=== PATIENT | female | born 1990 | race Caucasian/White ===

== ENCOUNTER 2017-03-31 08:09 | Inpatient (IN) | payer OTHER, SELFPAY ==
[~2017-03-31] VITALS: Ht 154.9 cm; Wt 84.5 kg
[~2017-03-31 08:09] MED LIST: ATOR1TAB19 PO; CELE10TA PO; CIPR500T89 PO; CLIN300C2 PO; CODE30TA3 PO; DEPA1TAB3 PO; GABA800T PO; INSUH10VL SC; INSULANT SC; JANU100T PO; KEFL500C7 OR; KEFL500C7 PO; LISI-542 PO; LISI25TA OR; METF500T PO; MULTCAP PO; No Historical Meds; PERCOCET PO; PROA1AER INH; PROM125TA PO; RANI15TA PO; REGL10TA6 OR; SILV1CRE19 TOP; TYLE325T5 OR; VITA50003 PO; VITACRY3 PO; ZINC100T4 PO; ZOFR4TAB3 PO; lantus SQ; novolog SQ
[2017-03-31] MEDS ORDERED: SENN8.6T10 PO (08:19)
[2017-03-31] MEDS ORDERED: AMLO5TAB2 PO (08:19)
[2017-03-31] MEDS ORDERED: LISI-538 (08:19)
[2017-03-31] MEDS ORDERED: PROMETHAZINE INJ 25 MG/ML VIAL (J2550) IV ONE (08:45)
[2017-03-31] MEDS ORDERED: NS 1,000 ML IV ONE ×2 (08:45→12:45)
[2017-03-31] MEDS: LEVEMIR (INSULIN DETEMIR) 1 UNITS/0.01ML SC SCH (09:00)
[2017-03-31] MEDS: PANTOPRAZOLE 40MG INJ (PROTONIX) (C9113) IV SCH (09:00)
[2017-03-31] MEDS: LISINOPRIL 20 MG TAB PO SCH (09:00)
[2017-03-31] MEDS: amLODIPine 5 MG TAB PO SCH (09:00)
[2017-03-31 09:17] LABS: VENOUS BASE EXCESS -1.2 (-2.0-2.0); VENOUS PARTIAL PRESSURE CO2 44.5 mmHg (38.0-50.0); VENOUS PARTIAL PRESSURE O2 43.9 mmHg (30.0-50.0); VENOUS TOTAL CO2 25.8 MEQ/L (24.0-28.0)
[2017-03-31 09:28] LABS: CONTROL LINE HCG INT CTR LINE PRESENT
[2017-03-31 09:29] LABS: BASO % 0.2 % (0.0-1.0); EOS % 0.1 % (0.0-3.0); LARGE UNSTAINED CELL # 0.1 K/mm3 (0.0-0.4); LARGE UNSTAINED CELL % 1.3 % (0.0-4.0); LYMPH # 0.7 K/mm3 (1.5-6.5); LYMPH % 8.5 % (24.0-44.0); MEAN CORPUSCULAR HEMOGLOBIN 26.8 pg (27.0-33.0); MEAN CORPUSCULAR VOLUME 81.3 fl (80.0-96.0); MONO # 0.3 K/mm3 (0.0-0.8); MONO % 3.6 % (0.0-5.0); NEUTROPHILS # 7.4 K/mm3 (1.8-7.7); NEUTROPHILS % 86.2 % (36.0-66.0); PLATELET COUNT, AUTOMATED 424 k/mm3 (150-450); RED CELL DISTRIBUTION WIDTH 13.9 % (11.5-14.5); WHITE BLOOD COUNT 8.6 K/mm3 (4.0-10.0)
[2017-03-31 09:37] LABS: ALBUMIN 2.7 GM/DL (3.2-5.2); ALBUMIN/GLOBULIN RATIO 0.64 (1.00-1.93); ALKALINE PHOSPHATASE 174 U/L (45-117); ALT/SGPT 23 U/L (12-78); ANION GAP 11 MEQ/L (8-16); AST/SGOT 24 U/L (15-37); BILIRUBIN,DIRECT < 0.1 MG/DL (0.0-0.2); BILIRUBIN,TOTAL 0.5 MG/DL (0.2-1.0); BLOOD UREA NITROGEN 19 MG/DL (7-18); CALCIUM LEVEL 8.6 MG/DL (8.5-10.1); CARBON DIOXIDE LEVEL 26 MEQ/L (21-32); CHLORIDE LEVEL 97 MEQ/L (98-107); CREATININE FOR GFR 0.86 MG/DL (0.55-1.02); GLOMERULAR FILTRATION RATE > 60.0 (>60); GLUCOSE, FASTING 387 MG/DL (70-105); POTASSIUM SERUM 4.4 MEQ/L (3.5-5.1); SODIUM LEVEL 134 MEQ/L (136-145); TOTAL PROTEIN 6.9 GM/DL (6.4-8.2)
[2017-03-31] MEDS ORDERED: HumuLIN R (REGULAR) INSULIN (NovoLIN R) **100U/ML** PER UNIT IV ONE (09:45)
--- NOTE | 2017-03-31 10:20 | REP ---
Clinical: Abdominal pain. Technique: Upright view of the chest with supine and upright views of the abdomen and pelvis. Comparison: 11/03/2016. Findings: Lung mancia suggest poor inspiratory effort and bibasilar atelectasis cannot be excluded. There is no evidence for bowel obstruction or perforation. No organomegaly. No abnormal calcifications. Skeletal structures intact. Impression: Nonspecific bowel gas pattern. Cannot exclude bibasilar atelectasis. Signed by Louis Lora MD 03/31/2017 10:11 A
[2017-03-31 11:12] LABS: VENOUS BASE EXCESS -0.9 (-2.0-2.0); VENOUS O2 SATURATION 82.1 % (60.0-80.0); VENOUS PARTIAL PRESSURE CO2 41.7 mmHg (38.0-50.0); VENOUS PARTIAL PRESSURE O2 49.1 mmHg (30.0-50.0); VENOUS STANDARD HCO3 23.4 MEQ/L; VENOUS TOTAL CO2 25.5 MEQ/L (24.0-28.0)
[2017-03-31 12:05] LABS: METHADONE URINE NEGATIVE (NEGATIVE)
[2017-03-31] MEDS ORDERED: ONDANSETRON 4MG/2ML VIAL (J2405) IV ONE (12:15)
[2017-03-31 13:03] LABS: ABG HCO3 25.9 MEQ/L (22.0-26.0); ABG PARTIAL PRESSURE CO2 42.7 mmHg (35.0-45.0); ABG STANDARD HCO3 24.9 MEQ/L (22.0-26.0); ABG TOTAL CO2 27.2 MEQ/L (22.0-29.0); ABG pH (ARTERIAL) 7.401 UNITS (7.350-7.450)
[2017-03-31 13:05] LABS: ABG PARTIAL PRESSURE O2 42.8 mmHg (75.0-100.0)
[2017-03-31] MEDS ORDERED: LISI-538 PO (15:27)
[2017-03-31] MEDS ORDERED: KETOROLAC 30 MG/ML VIAL (J1885) IV ONE (15:30)
[2017-03-31] MEDS ORDERED: ONDANSETRON 4MG/2ML VIAL (J2405) IV PRN (15:45)
[2017-03-31] MEDS: METOCLOPRAMIDE INJ 10MG/2ML VIAL (J2765) IV SCH (16:00)
[2017-03-31] MEDS: NS 1,000 ML IV SCH (16:00)
[2017-03-31] MEDS ORDERED: GLUCAGON FOR INJ 1 MG VIAL (J1610) SC PRN (16:15)
[2017-03-31] MEDS ORDERED: DEXTROSE 50% 50 ML SYRINGE IV PRN (16:15)
[2017-03-31] MEDS ORDERED: GLUCOSE 4 GM CHEW TABLET PO PRN (16:15)
--- NOTE | 2017-03-31 16:56 | HPE ---
DATE OF ADMISSION: 03/31/2017 PRIMARY CARE PROVIDER: Dr. Cheng. CHIEF COMPLAINT: Intractable vomiting since last night, subjective fevers at home, one episode. PAST MEDICAL HISTORY: 1. Type 1 diabetes for 15 years. 2. Osteomyelitis, followed by right below-knee amputation in November 2016. 3. Diabetic neuropathy. 4. Depression and anxiety. HISTORY OF PRESENT ILLNESS: This is a 26-year-old female with type 1 diabetes, poorly controlled, with A1c greater than 11, who came into the hospital for intractable vomiting that started last night, also with an episode of fever. She did not measure her temperature at home; however, overnight she has vomited multiple times, unable to tolerate anything by mouth, so came to the emergency room. In the emergency department (ED), she had an abdominal x-ray done which showed nonspecific gas pattern with no acute findings. Her laboratories showed hyperglycemia; however, there were no signs of any acidosis or diabetic ketoacidosis (DKA). In spite of multiple medications in the ED, the patient still continued to vomit and unable to tolerate anything by mouth, so the patient is being admitted to the hospitalist service for intractable vomiting. The patient also complained of bleeding from her left big toe, does not remember any trauma to the toe. Thinks it has been going on for 2-3 days. She denies any chest pain or any palpitations. Does complain of some cough. Denies any diarrhea. Does complain of some generalized abdominal pain. Denies any dysuria or hematuria. PAST SURGICAL HISTORY: 1. Appendectomy. 2. Right below-knee amputation. SOCIAL HISTORY: Denies smoking. Denies use of alcohol or drug use. Lives with her who is posted at [employer]. ALLERGIES: 1. METRONIDAZOLE. 2. OXYCODONE. HOME MEDICATIONS: - amlodipine 5 mg by mouth daily - atorvastatin 10 mg at bedtime - Celexa 10 mg at bedtime - Depakote 500 mg by mouth twice a day - ergocalciferol 50,000 once a week - gabapentin 800 mg by mouth three times a day - aspart insulin 15 units before meals - lisinopril 20 mg daily - metformin 500 mg twice a day - senna one tablet by mouth as needed for constipation Additional medical history includes hypertension, hyperlipidemia. REVIEW OF SYSTEMS: All 10-point review of systems were negative except those mentioned in history of present illness (HPI). PHYSICAL EXAMINATION: VITAL SIGNS: Temperature 97.6, pulse 116, blood pressure 144/84, pulse oximetry 94% on room air. GENERAL: Patient awake, alert, and oriented times three, lying down in bed in no acute distress. HEENT: Normocephalic, atraumatic. Dry mucous membranes. Anicteric eyes. CHEST: Clear to auscultation. CARDIOVASCULAR: S1, S2, regular, tachycardic. No rub, murmur or gallop. ABDOMEN: Obese, soft, generalized tender, bowel sounds normal. No rigidity or guarding. EXTREMITIES: No edema. On the (please clarify) big toe there is thickened skin and conformation with superficial blood noted. LABORATORY DATA: WBC 8.6, hemoglobin 11.5, platelets 424. Sodium 134, potassium 4.4, chloride 97, bicarbonate 26, BUN 19, creatinine 0.8, glucose 387, A1c 11.1. Liver function tests are normal. Albumin 2.7, lipase normal. RADIOLOGY: Abdominal x-ray reviewed. No acute abnormalities. ASSESSMENT AND PLAN: This is a 26-year-old female admitted for intractable vomiting. PLAN: 1. Intractable vomiting: We will place the patient on intravenous (IV) fluids, nothing by mouth, and then advanced as tolerated to clear liquids. We will continue with ondansetron and metoclopramide. We will also schedule the patient for gastric emptying study for tomorrow to evaluate for any gastroparesis. 2. Type 1 diabetes uncontrolled. We will hold metformin at present. We will continue with lispro before meals and at bedtime. We will also give long-acting Levemir. 3. Hypertension. Will continue with lisinopril and amlodipine. 4. Anxiety/depression. Will continue with Celexa. 5. Hyperlipidemia. Will continue with atorvastatin. 6. Diabetic neuropathy. Will continue with gabapentin. 7. Deep venous thrombosis (DVT) prophylaxis has been ordered. 8. Gastrointestinal (GI) prophylaxis has been ordered.
[2017-03-31] MEDS: HumaLOG INSULIN (NovoLOG) PER UNIT SC SCH (17:30)
[2017-03-31 20:25] VITALS: BP 143/89
[2017-03-31] MEDS ORDERED: ATORVASTATIN 10 MG TAB PO SCH (21:00)
[2017-03-31] MEDS ORDERED: HumaLOG INSULIN (NovoLOG) PER UNIT SC SCH (21:00)
[2017-03-31] MEDS ORDERED: ENOXAPARIN 40 MG/0.4 ML SYRINGE (J1650) SC SCH (21:00)
[2017-03-31] MEDS ORDERED: CitaloPRAM (CeleXA) 10 MG TABLET PO SCH (21:00)
[2017-03-31] MEDS: DIVALPROEX 500 MG TAB PO SCH (21:55)
[2017-03-31] MEDS: GABAPENTIN 400 MG CAP PO SCH (21:55)
[2017-04-01] MEDS ORDERED: ACETAMINOPHEN 500 MG TAB PO ONE (00:30)
[2017-04-01] MEDS ORDERED: KETOROLAC 30 MG/ML VIAL (J1885) IV ONE (00:30)
[2017-04-01] MEDS: NS 1,000 ML IV SCH (02:00)
[2017-04-01 06:00] VITALS: BP 124/68
[2017-04-01 07:05] LABS: BASO % 0.5 % (0.0-1.0); EOS # 0.1 K/mm3 (0.0-0.50); EOS % 1.8 % (0.0-3.0); LARGE UNSTAINED CELL # 0.3 K/mm3 (0.0-0.4); LARGE UNSTAINED CELL % 3.4 % (0.0-4.0); LYMPH # 2.1 K/mm3 (1.5-6.5); LYMPH % 27.1 % (24.0-44.0); MEAN CORPUSCULAR HEMOGLOBIN 26.8 pg (27.0-33.0); MEAN CORPUSCULAR HGB CONC 33.1 g/dl (32.0-36.5); MONO # 0.6 K/mm3 (0.0-0.8); MONO % 7.2 % (0.0-5.0); NEUTROPHILS # 4.6 K/mm3 (1.8-7.7); PLATELET COUNT, AUTOMATED 401 k/mm3 (150-450); RED CELL DISTRIBUTION WIDTH 14.1 % (11.5-14.5); WHITE BLOOD COUNT 7.7 K/mm3 (4.0-10.0)
[2017-04-01] MEDS: HumaLOG INSULIN (NovoLOG) PER UNIT SC SCH ×2 (07:30→13:15)
[2017-04-01 07:36] LABS: ANION GAP 10 MEQ/L (8-16); BLOOD UREA NITROGEN 32 MG/DL (7-18); CALCIUM LEVEL 7.6 MG/DL (8.5-10.1); CARBON DIOXIDE LEVEL 27 MEQ/L (21-32); CHLORIDE LEVEL 99 MEQ/L (98-107); CREATININE FOR GFR 1.13 MG/DL (0.55-1.02); GLOMERULAR FILTRATION RATE > 60.0 (>60); GLUCOSE, FASTING 242 MG/DL (70-105); MAGNESIUM LEVEL 1.9 MG/DL (1.8-2.4); POTASSIUM SERUM 3.6 MEQ/L (3.5-5.1); SODIUM LEVEL 136 MEQ/L (136-145)
[2017-04-01] MEDS: LEVEMIR (INSULIN DETEMIR) 1 UNITS/0.01ML SC SCH (09:03)
[2017-04-01] MEDS: PANTOPRAZOLE 40MG INJ (PROTONIX) (C9113) IV SCH (09:04)
[2017-04-01] MEDS: METOCLOPRAMIDE INJ 10MG/2ML VIAL (J2765) IV SCH ×2 (09:07)
--- NOTE | 2017-04-01 09:13 | REP ---
Portable chest x-ray: Single view. History: Congestion. Comparison chest x-ray March 31, 2017. Findings: Today's view is again exposed at a relatively low level of inspiration. No focal infiltrate is seen. The pleural angles are sharp. Cardiomediastinal silhouette is unremarkable. Impression: No acute disease seen. Unreviewed
[2017-04-01] MEDS: DIVALPROEX 500 MG TAB PO SCH (13:06)
[2017-04-01] MEDS: GABAPENTIN 400 MG CAP PO SCH (13:06)
[2017-04-01 13:07] VITALS: BP 128/72
[2017-04-01] MEDS: LISINOPRIL 20 MG TAB PO SCH (13:07)
[2017-04-01] MEDS: amLODIPine 5 MG TAB PO SCH (13:07)
--- NOTE | 2017-04-01 13:50 | REP ---
Gastric emptying nuclear scintigraphy: History: Diabetic gastroparesis. Three days of nausea and vomiting. Pain and tenderness. Technique: 1.03 mCi of technetium-99m sulfur colloid was ingested in two scrambled eggs and 6 ounces of water and sequential anterior and posterior images are acquired for an 89-minute imaging observation period. Regions of interest are drawn around the stomach to plot gastric emptying. The patient refused additional imaging after the 21-minute image. The study was aborted at this point. Scintigraphic findings: Expected T1/2 is 90 minutes. 0% emptying is observed in this patient during the 21-minute imaging observation period. Impression: Limited study terminated by the patient early. No observed gastric emptying however consistent with a very delayed gastric emptying time. Signed by Danielito Rivera MD 04/01/2017 02:34 P
[2017-04-01] MEDS ORDERED: NS 1,000 ML IV SCH (14:15)
--- NOTE | 2017-04-01 16:04 | IPNPDOC ---
Text Note Date of Service The patient was seen on 04/01/17. NOTE Pt did not tolerate the gastric emptying study. States her N/V has resolved and that she has a h/o gastroparesis. Reviewed her labs and concern for worsening kidney function. Pt refused all treatment. All risks of leaving including renal failure/ infection of her LLE stump was explained. Pt was AAOx3 with good insight. Wants to leave AMA and f/u with her GI, outpatient interviewing clerk, and astronaut mission specialist. States she has an appointment tomorrow to see wound care. VS,Fishbone, I+O VS, Fishbone, I+O Laboratory Tests 04/01/17 06:56 Red Blood Count 3.83 L, Mean Corpuscular Volume 81.0, Mean Corpuscular Hemoglobin 26.8 L, Mean Corpuscular Hemoglobin Concent 33.1, Red Cell Distribution Width 14.1, Neutrophils (%) (Auto) 60.0, Lymphocytes (%) (Auto) 27.1, Monocytes (%) (Auto) 7.2 H, Eosinophils (%) (Auto) 1.8, Basophils (%) ( Auto) 0.5, Neutrophils # (Auto) 4.6, Lymphocytes # (Auto) 2.1, Monocytes # (Auto ) 0.6, Eosinophils # (Auto) 0.1, Basophils # (Auto) 0.0, Calcium Level 7.6 L Vital Signs Date Time Temp Pulse Resp B/P (MAP) Pulse Ox O2 Delivery O2 Flow Rate FiO2 04/01/17 13:07 98 128/72 04/01/17 06:00 98.0 18 92 Room Air I&O- Last 24 Hours up to 6 AM 04/01/17 06:00 Intake Total 2500 ml Output Total 700 ml Balance 1800 ml NICKY DESOUZA MD April 01, 2017 16:04
== END 2017-04-01 14:50 | disposition left against medical advice (07) | DRG 420 ==
LOC: M ED 09:45 → M ED INP 15:38 → M MS5PR 20:20 → OBSVTOIN 04-01 08:10
PROVIDERS: ADMIT Internal Medicine Nephrology; ATTEND Internal Medicine
DX: E10.65 Type 1 diabetes mellitus with hyperglycemia (principal); I10 Essential (primary) hypertension; E10.40 Type 1 diabetes mellitus with diabetic neuropathy, unspecified; F41.9 Anxiety disorder, unspecified; F32.9 Major depressive disorder, single episode, unspecified; Z89.511 Acquired absence of right leg below knee; Z79.899 Other long term (current) drug therapy; Z79.4 Long term (current) use of insulin; E78.5 Hyperlipidemia, unspecified

== ENCOUNTER → 2017-05-22 | Outpatient (REF) | payer OTHER ==
[~2017-05-22] MED LIST changes: +AMIT25TA PO; +AMLO10TA2 PO; +AMLO5TAB2 PO; +ATOR1TAB21 PO; +CIPR-249 PO; -CIPR500T89 PO; +GABA-282 PO; +GABA600T PO; +HYDR12CA PO; +KEFL500C17 OR; +KEFL500C17 PO; -KEFL500C7 OR; -KEFL500C7 PO; +LEVA1TAB2 PO; +LISI-538; +LISI-538 PO; -METF500T PO; +METF500T13 PO; +PHEN1SUP6 PR; -PROA1AER INH; +PROAAER10 INH; +PROM12.55 PO; -PROM125TA PO; +PROM25SU PR; +REGL10TA6 PO; +SENN1TAB10 PO; -SILV1CRE19 TOP; +SILV1CRE60 TOP; +SITA50TAB PO; +TOUJ1.2I SC; +VITA1CAP40 PO; -VITA50003 PO
== END ==
LOC: M LAB REF 13:09
PROVIDERS: ATTEND Podiatrist Foot & Ankle Surgery
DX: L03.032 Cellulitis of left toe (principal)

== ENCOUNTER → 2017-05-22 | Outpatient (REF) | payer OTHER | LOC: EEVIPCON 13:36 → M SFHCLERA 13:36 | PROVIDERS: ATTEND Nurse Practitioner Family | DX: R30.0 Dysuria (principal) ==

== ENCOUNTER 2017-06-17 11:40 | Inpatient (IN) | payer MEDICAID, OTHER ==
[~2017-06-17] VITALS: Ht 154.9 cm; Wt 72.4 kg
[~2017-06-17 11:40] MED LIST changes: -AMIT25TA PO; -AMLO10TA2 PO; -ATOR1TAB21 PO; -GABA-282 PO; -GABA600T PO; -HYDR12CA PO; -LEVA1TAB2 PO; -PHEN1SUP6 PR; -PROM25SU PR; -REGL10TA6 PO; -SITA50TAB PO; -TOUJ1.2I SC
[2017-06-17] MEDS ORDERED: TOUJ1.2I SC (11:54)
[2017-06-17] MEDS ORDERED: MORPHINE 4 MG/ML 1ML SYRINGE IV ONE ×2 (13:15→15:15)
[2017-06-17] MEDS ORDERED: ONDANSETRON 4MG/2ML VIAL (J2405) IV ONE ×2 (13:15→15:15)
[2017-06-17] MEDS ORDERED: NS 1,000 ML IV ONE (13:15)
[2017-06-17 13:25] LABS: BASO % 0.4 % (0.0-1.0); CONTROL LINE HCG INT CTR LINE PRESENT; EOS % 0.1 % (0.0-3.0); LARGE UNSTAINED CELL # 0.1 K/mm3 (0.0-0.4); LARGE UNSTAINED CELL % 0.8 % (0.0-4.0); LYMPH # 1.1 K/mm3 (1.5-6.5); LYMPH % 9.5 % (24.0-44.0); MEAN CORPUSCULAR HEMOGLOBIN 26.9 pg (27.0-33.0); MEAN CORPUSCULAR HGB CONC 34.4 g/dl (32.0-36.5); MEAN CORPUSCULAR VOLUME 78.2 fl (80.0-96.0); MONO # 0.3 K/mm3 (0.0-0.8); MONO % 2.7 % (0.0-5.0); NEUTROPHILS # 9.4 K/mm3 (1.8-7.7); NEUTROPHILS % 86.4 % (36.0-66.0); PLATELET COUNT, AUTOMATED 383 k/mm3 (150-450); RED CELL DISTRIBUTION WIDTH 14.1 % (11.5-14.5); WHITE BLOOD COUNT 10.9 K/mm3 (4.0-10.0)
[2017-06-17 13:33] LABS: ALBUMIN 2.9 GM/DL (3.2-5.2); ALBUMIN/GLOBULIN RATIO 0.69 (1.00-1.93); ALKALINE PHOSPHATASE 140 U/L (45-117); ALT/SGPT 22 U/L (12-78); ANION GAP 13 MEQ/L (8-16); AST/SGOT 12 U/L (15-37); BILIRUBIN,DIRECT 0.1 MG/DL (0.0-0.2); BILIRUBIN,TOTAL 0.6 MG/DL (0.2-1.0); BLOOD UREA NITROGEN 18 MG/DL (7-18); CALCIUM LEVEL 9.3 MG/DL (8.5-10.1); CARBON DIOXIDE LEVEL 23 MEQ/L (21-32); CHLORIDE LEVEL 99 MEQ/L (98-107); CREATININE FOR GFR 0.86 MG/DL (0.55-1.02); GLOMERULAR FILTRATION RATE > 60.0 (>60); POTASSIUM SERUM 4.4 MEQ/L (3.5-5.1); SODIUM LEVEL 135 MEQ/L (136-145); TOTAL PROTEIN 7.1 GM/DL (6.4-8.2)
[2017-06-17 13:40] LABS: GLUCOSE, FASTING 433 MG/DL (70-105)
[2017-06-17] MEDS ORDERED: HumuLIN R (REGULAR) INSULIN (NovoLIN R) **100U/ML** PER UNIT IV ONE (14:30)
[2017-06-17] MEDS ORDERED: GASTROGRAFIN SOLUTION 30ML PO ONE (14:45)
[2017-06-17] MEDS ORDERED: GASTROGRAFIN SOLUTION 30ML (Q9963) PO ONE (15:15)
[2017-06-17] MEDS ORDERED: ISOVUE-370 76% 100ML VIAL (Q9967) As Ordered ONE (16:04)
--- NOTE | 2017-06-17 16:52 | REP ---
CT of the abdomen and pelvis with IV and bowel contrast: Comparison 04/24/2017, and 11/18/2016. In the visualized lung mancia. There are are infiltrates in the right middle lobe and right lower lobe as a change from the prior study. The hepatic parenchyma, gallbladder, pancreas and spleen are homogeneous, normal size and unremarkable, except for a triangular shaped hypodensity in the posterior lower pole of the spleen, not present on a CT of 11/18/2016, compatible with splenic infarct or hematoma. The adrenals are unremarkable. There are vascular calcifications of the renal radha bilaterally as previously. No renal collecting system calculi are identified. There is no hydronephrosis. No renal masses or cysts are identified. The abdominal aorta is unremarkable. There is no retroperitoneal adenopathy. The bowel is unremarkable. Pelvis: The uterus is long unremarkable. However, there are elongated hypodense structures in the adnexa bilaterally of uncertain significance. Part of this could be this could be partially from the ovaries, however, the possibility of hydrosalpinx or other adnexal abnormality is raised. Consider pelvic ultrasound for further evaluation. The urinary bladder is unremarkable. There is no ascites. No adenopathy. The pelvic bowel loops are unremarkable. Impression: There is no bowel distension or obstruction. No CT evidence of colitis. No adenopathy or ascites. There are unusual hypo densities in the adnexa bilaterally of uncertain significance. This may be partially from the ovaries, however, ovarian cysts, hydrosalpinx or other adnexal abnormality could be further evaluated with pelvic ultrasound. There is a triangular shaped hypodensity in the posterior lower pole of the spleen, not present on a CT of 11/18/2016, compatible with splenic infarct or hematoma. Signed by Marlo Chi MD 06/17/2017 04:43 P
[2017-06-17] MEDS ORDERED: SITA50TAB PO (17:34)
[2017-06-17] MEDS ORDERED: ATOR1TAB21 PO (17:34)
[2017-06-17] MEDS ORDERED: CIPROFLOXACIN 400 MG in APPROPRIATE DILUENT 1 EA IV ONE (18:00)
[2017-06-17] MEDS ORDERED: MORPHINE 2 MG/ML 1ML SYRINGE IV PRN (20:00)
[2017-06-17] MEDS ORDERED: ACETAMINOPHEN TAB 650MG DOSE (2X325MG) PO PRN (20:00)
[2017-06-17 20:33] LABS: MAGNESIUM LEVEL 2.1 MG/DL (1.8-2.4)
[2017-06-17] MEDS ORDERED: DEXTROSE 50% 50 ML SYRINGE IV PRN (20:45)
[2017-06-17] MEDS ORDERED: GLUCAGON FOR INJ 1 MG VIAL (J1610) SC PRN (20:45)
[2017-06-17] MEDS: NS 1,000 ML IV SCH (20:45)
[2017-06-17] MEDS ORDERED: GLUCOSE 4 GM CHEW TABLET PO PRN (20:45)
[2017-06-17] MEDS ORDERED: LEVEMIR (INSULIN DETEMIR) 1 UNITS/0.01ML SC SCH (21:00)
[2017-06-17 21:17] LABS: CHOLESTEROL LEVEL 291 MG/DL (<200); TRIGLYCERIDES LEVEL 261 MG/DL (<150)
[2017-06-17] MEDS ORDERED: amLODIPine 5 MG TAB PO ONE (21:30)
[2017-06-17 22:00] VITALS: BP 171/93
[2017-06-17] MEDS: PANTOPRAZOLE 40MG INJ (PROTONIX) (C9113) IV SCH (22:05)
[2017-06-17] MEDS: cefTRIAXone SOD 2 GM in D5W MINI-BAG PLUS 50 ML IV SCH (22:05)
[2017-06-17] MEDS: METOCLOPRAMIDE INJ 10MG/2ML VIAL (J2765) IV PRN (22:07)
[2017-06-17] MEDS: MORPHINE 2 MG/ML 1ML SYRINGE IV PRN (22:10)
--- NOTE | 2017-06-17 22:52 | HPE ---
DATE OF ADMISSION: 06/17/2017 TIME PATIENT WAS SEEN: This evening at 2000 hours. PRIMARY CARE PROVIDER: Dr. Cheng CHIEF COMPLAINT: Abdominal pain with intractable nausea and vomiting. HISTORY OF THE PRESENT ILLNESS: A 26-year-old female with a past medical history of poorly controlled type 1 diabetes, hypertension, hyperlipidemia, chronic pain , osteomyelitis status post right below-knee amputation (BKA), presented with Intractable nausea, vomiting and left-sided abdominal pain. The patient stated that she had a similar episode a month ago; however, it suddenly got worse yesterday and she has been having nausea and vomiting, which is nonbilous, nonbloody for at least 20 times over the past 24 hours, and she has severe left-sided abdominal pain. Per patient, however, she is having normal bowel movements, no blood in the stool, no diarrhea, no constipation. The patient was diagnosed with gastroparesis back in March. Otherwise, the patient denies any fever or chills, any chest pain, trouble breathing, any rash, any recent traveling or sick contact. ALLERGIES: Patient is allergic to METRONIDAZOLE, OXYCODONE, which gives her hives. However, she is okay to take morphine. PAST MEDICAL HISTORY: Includin. Insulin-dependent type 2 diabetes. 2. Hyperlipidemia. 3. Right-sided BKA from osteomyelitis. 4. History of sepsis from osteomyelitis. 5. Depression/anxiety. 6. History of possible ileus. 7. Hyperlipidemia. PAST SURGICAL HISTORY: Includin. Appendectomy. 2. Right-sided BKA. HOME MEDICATIONS: Including: - amlodipine 5 mg by mouth daily - atorvastatin 20 mg by mouth nightly - Celexa 10 mg one tablet by mouth nightly - Depakote 500 mg one tablet by mouth twice a day - ergocalciferol 50,000 units one tablet by mouth once weekly - gabapentin 800 mg one tablet by mouth three times a day - insulin 15 units subcutaneously before each meal - lisinopril 20 mg one tablet by mouth daily - metformin 500 mg one tablet by mouth twice a day - Senna 8.6 mg one tablet by mouth as needed - Januvia 50 mg by mouth daily - Toujeo 60 units subcutaneously nightly SOCIAL HISTORY: The patient lives with her boyfriend. Denies any smoking, drinking or recreational drug use. FAMILY HISTORY: Denies. REVIEW OF SYSTEMS: GENERAL: Patient denies any fever or chills. Denies any recent traveling or sick contact. HEENT: Denies any changes with vision, smell, hearing or taste. CARDIOVASCULAR: Denies any chest pain, trouble breathing. ABDOMEN: Admits to severe left-sided abdominal pain with intractable nausea, vomiting. However, the patient denies any diarrhea or constipation. Admits to normal bowel movement this morning. Denies any blood in the stool. MUSCULOSKELETAL: Denies any pain anywhere. However, the patient does have a right-sided BKA from past osteomyelitis. HEMATOLOGY/ONCOLOGY: Denies any ease of bruising. Denies any bleeding anywhere. ENDOCRINE: Admits to insulin-dependent type 2 diabetes, reviewing history which is poorly controlled. Denies any heat or cold intolerance. NEUROLOGY: Denies any change of sensations. Denies any weakness that is changed from baseline. PSYCHIATRIC: Admits to anxiety/depression. PHYSICAL EXAMINATION: VITAL SIGNS: Temperature 97.3, pulse 101, respirations 18, blood pressure 164/108, oxygen was saturating at 99% on room air. GENERAL: The patient is a morbidly obese young female who was alert, awake, oriented times three, appears to be in moderate distress, laying in left lateral decubitus position with the head elevated at 30 degrees. HEENT: Normocephalic, atraumatic. Extraocular motor intact. Mucosa moist. NECK: Supple. No neck lymphadenopathy. CARDIOVASCULAR: Tachycardic, S1, S2. No murmurs, rubs or gallops. LUNGS: Clear to auscultation bilaterally. No wheezing, rales, or rhonchi. ABDOMEN: Positive bowel sounds, soft, tender to palpation at the left upper quadrant. No peritoneal signs. No ecchymosis. EXTREMITIES: No edema, clubbing or cyanosis. The patient does have a right-sided BKA. SKIN: Warm and dry. NEUROLOGICAL: Cranial nerves II-XII intact. LABORATORY DATA: WBC 10.9, hemoglobin 12.8, hematocrit 37.2 and platelet count of 383, MCV of 78.2. Sodium 135, potassium 4.4, chloride 99, bicarbonate 23, BUN 18, creatinine 0.86,GFR greater than 60, fasting glucose 433, lactic acid 1.9, calcium 9.3, magnesium 2.1, total bilirubin 0.6, direct bilirubin 0.1, AST 12, ALT 22, alkaline phosphatase 140 and total protein 7.1, albumin 2.9, lipase 164. Urinalysis shows urine appears to be cloudy, 3+ protein, 3+ glucose, 1+ ketones, 1+ blood, 1+ leukocyte esterase, 122 WBCs, 12 RBCs and 2+ bacteria. The patient' s blood culture times two are pending. Urine culture is currently pending. The patient had a CT of the abdomen and pelvis with oral and IV contrast in the emergency room shows no bowel distention or obstruction. No colitis. No adenopathy or ascites. However, there is unusual hypodensity in the adnexa bilaterally of uncertain significance, may be partially from ovaries; however ovarian cysts, hydrosalpinx or other adnexal abnormalities could be further evaluated with a pelvic ultrasound. There is a triangular-shaped hypodensity in the posterior lower lobe of the spleen, not on a CT back in November 2016. ASSESSMENT AND PLAN: A 26-year-old female with a past medical history significant for insulin-dependent type 1 diabetes, history of osteomyelitis, hypertension, hyperlipidemia, chronic pain, depression, anxiety, presented with: 1. Left-sided abdominal pain with intractable nausea, vomiting. CT of abdomen and pelvis with IV and oral contrast shows possible posterior lower lobe splenic infarct or hematoma. General surgery, Dr. Ivory, has been consulted. Will follow his recommendation. Currently, will keep patient nothing by mouth (n.p.o.),intravenous (IV) fluid, pain control and continue Zofran and Reglan. Continue to monitor patient. 2. Unusual hypodensity in the adnexa bilaterally of uncertain significance. Radiology recommended a pelvic ultrasound, which has been ordered. Will followup. 3. Urinary tract infection. The patient was started on ciprofloxacin in the emergency room. Will switch to Rocephin while she is in the hospital and continue to monitor. Continue to follow urine culture. 4. Type 1 diabetes. Continue insulin sliding scale. 5. Hyperlipidemia. Continue home statin and will order a lipid panel. 6. Anxiety/depression. Will continue home medication. 7. Hypertension. Will continue Norvasc 5 mg and also lisinopril 20 mg by mouth daily. Will also give Lopressor 5 mg every 6 hours as needed for hold parameter if systolic blood pressure is greater than 160. 8. Deep vein thrombosis (DVT) prophylaxis. Sequential compression device (SCD) and thromboembolism deterrents (TEDs). Due to splenic infarct, will restart subcutaneous heparin pending general surgery approval. 9. Fluids, electrolytes and nutrition: The patient is currently on normal saline at 100 mL per hour and will place the patient on nothing by mouth for now with sips and medication. DISPOSITION: The patient has severe left-sided abdominal pain with intractable nausea and vomiting, also a possible splenic infarct versus hematoma. General surgery has been consulted and will follow their recommendation. The patient has been discussed with attending doctor, Dr. Puente. My preceptor for this patient encounter was Dr. Puente. The preceptor was physically present in the building during the encounter and was fully available. As needed, all aspects of the patient interview, examination, medical decision making process, and medical care plan development were reviewed and approved by the preceptor. The preceptor is aware and concurs with the plan as stated in the body of this note and will attest to such by his/her co-signature. Attending Note: Patient discussed in detail with resident. I have independently evaluated patient and agree with plan as outlined above. TASH
[2017-06-17] MEDS: GABAPENTIN 400 MG CAP PO SCH (23:54)
[2017-06-17] MEDS: SENOKOT S TAB PO SCH (23:55)
[2017-06-17] MEDS: DIVALPROEX 500 MG TAB PO SCH (23:55)
[2017-06-17] MEDS: ATORVASTATIN 20 MG TAB PO SCH (23:55)
[2017-06-17] MEDS: HumaLOG INSULIN (NovoLOG) PER UNIT SC SCH (23:56)
[2017-06-17] MEDS: CitaloPRAM (CeleXA) 10 MG TABLET PO SCH (23:56)
[2017-06-18] MEDS: MORPHINE 2 MG/ML 1ML SYRINGE IV PRN ×4 (00:48→09:08)
[2017-06-18 01:54] LABS: INR 0.98
[2017-06-18] MEDS: ONDANSETRON 4MG/2ML VIAL (J2405) IV PRN ×2 (03:35→09:07)
[2017-06-18] MEDS: HEPARIN SOD (PORCINE) 5000 UNITS/ML VIAL SQ SCH ×3 (06:51→21:26)
[2017-06-18] MEDS: NS 1,000 ML IV SCH ×2 (06:52→16:17)
[2017-06-18] MEDS: HumaLOG INSULIN (NovoLOG) PER UNIT SC SCH ×6 (06:52→18:22)
[2017-06-18] MEDS: METOCLOPRAMIDE INJ 10MG/2ML VIAL (J2765) IV PRN (06:53)
[2017-06-18 07:08] LABS: BASO % 0.1 % (0.0-1.0); EOS % 0.1 % (0.0-3.0); LARGE UNSTAINED CELL # 0.2 K/mm3 (0.0-0.4); LARGE UNSTAINED CELL % 1.8 % (0.0-4.0); LYMPH # 1.6 K/mm3 (1.5-6.5); MEAN CORPUSCULAR HEMOGLOBIN 26.1 pg (27.0-33.0); MEAN CORPUSCULAR HGB CONC 33.3 g/dl (32.0-36.5); MEAN CORPUSCULAR VOLUME 78.6 fl (80.0-96.0); MONO # 0.8 K/mm3 (0.0-0.8); MONO % 6.1 % (0.0-5.0); NEUTROPHILS # 9.9 K/mm3 (1.8-7.7); NEUTROPHILS % 80.9 % (36.0-66.0); PLATELET COUNT, AUTOMATED 396 k/mm3 (150-450); RED CELL DISTRIBUTION WIDTH 14.5 % (11.5-14.5); WHITE BLOOD COUNT 12.2 K/mm3 (4.0-10.0)
[2017-06-18 07:12] LABS: REASON FOR REVIEW COMPREHENSIVE REVIEW
[2017-06-18 07:15] LABS: INR 0.97
[2017-06-18 07:32] LABS: ALBUMIN 2.7 GM/DL (3.2-5.2); ALBUMIN/GLOBULIN RATIO 0.66 (1.00-1.93); BILIRUBIN,TOTAL 0.2 MG/DL (0.2-1.0); CREATININE FOR GFR 1.42 MG/DL (0.55-1.02); GLOMERULAR FILTRATION RATE 46.9 (>60); POTASSIUM SERUM 3.9 MEQ/L (3.5-5.1); TOTAL PROTEIN 6.8 GM/DL (6.4-8.2)
[2017-06-18 08:17] LABS: ERYTHROCYTE SEDIMENTATION RATE 66 mm/hr (0-20)
[2017-06-18] MEDS ORDERED: LISINOPRIL 20 MG TAB PO SCH (09:00)
[2017-06-18] MEDS ORDERED: amLODIPine 5 MG TAB PO SCH (09:00)
[2017-06-18] MEDS: GABAPENTIN 400 MG CAP PO SCH ×3 (09:08→21:26)
[2017-06-18] MEDS: SENOKOT S TAB PO SCH ×2 (09:09→21:26)
[2017-06-18] MEDS: LEVEMIR (INSULIN DETEMIR) 1 UNITS/0.01ML SC SCH ×2 (09:09→21:25)
[2017-06-18] MEDS: DIVALPROEX 500 MG TAB PO SCH ×2 (09:09→21:26)
--- NOTE | 2017-06-18 10:34 | ECGEPIP ---
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
[2017-06-18] MEDS ORDERED: amLODIPine 5 MG TAB PO ONE (12:30)
[2017-06-18 14:00] VITALS: BP 140/85
--- NOTE | 2017-06-18 16:04 | CR ---
DATE OF CONSULTATION: 06/17/2017 REASON FOR CONSULTATION: Abnormal CT imaging of spleen. HISTORY OF PRESENT ILLNESS: The patient is a 26-year-old woman who presented to the emergency department complaining of nausea and recurrent vomiting. Her medical history is most significant for type 1 diabetes with the attendant complications thereof. She has a history of hypertension and hyperlipidemia. She has had osteomyelitis in her right lower extremity, resulting in a below-knee amputation. She has had previous admission for nausea with vomiting. The patient reported significant nausea and vomiting and came to the emergency department for evaluation. She had some lab work done that revealed a very mild elevation of white blood cell count to 11,000 with 86% neutrophils. Blood chemistries showed her glucose at 433 with a BUN of 18, creatinine 0.86, and normal liver function tests with the exception of a minimal elevation of the alkaline phosphatase. She had a CT scan as part of her evaluation. This was interpreted by the radiologist as showing an abnormality in the spleen. This was described as a triangular hypodensity in the posterior aspect of the spleen, which could represent a splenic infarct or hematoma. The radiologist reported that this was a new finding since a CT scan of 11/18/2016. I was asked to evaluate the patient regarding the significance of the CT finding. ALLERGIES: The patient has reported allergies to METRONIDAZOLE and OXYCODONE. MEDICATIONS: Multiple and as listed in her medical record. MEDICAL HISTORY: 1. Significant primarily for her diabetes. 2. She has a history of hyperlipidemia. 3. She has a history of anxiety and depression. PAST SURGICAL HISTORY: The patient had undergone a laparoscopy for abdominal pain some 10 years ago, which revealed findings consistent with pelvic inflammatory disease, but she did undergo an appendectomy at that time. She has had several procedures on her lower extremities for infection and has undergone a right below-knee amputation. FAMILY HISTORY AND SOCIAL HISTORY: As noted by the primary physician. REVIEW OF SYSTEMS: Reveals that she has had difficulty managing her diabetes. She reports some significant abdominal discomfort, though describes to me that it is fairly diffuse. She has not had any rectal bleeding or change her bowel habits, however. PHYSICAL EXAMINATION: The patient is a somewhat disheveled young woman, lying on a hospital stretcher with a T-shirt across her face. She is not entirely cooperative with my evaluation. She indicates a desire for some pain medication and does not seem interested in conversation at this time. Heart exam shows a regular rate and rhythm. Her lungs are clear to auscultation. The abdomen appears somewhat protuberant. She does have bowel sounds present. She has scarring consistent with a previous laparoscopy. There is no marked tenderness on palpation. There is no tympany to percussion. There may be some mild tenderness to palpation in the left side of her abdomen, though not well localized. Her laboratory studies are as previously noted. She had a urinalysis that showed 1+ leukocyte esterase, 112 white cells, and 12 red cells per high-power field with 2+ bacteria. I reviewed the CT image myself. There is a small irregularity in the spleen. This is probably less than 2 cm in size. There does not appear to be any fluid around the spleen or any obvious inflammatory change. The most recent CT image in the [employer] system is several years old, and I reviewed this as well and do not see this small area. The November 2016 image that the radiologist said was a comparison is not available to me in the [employer] system apparently. IMPRESSION: Small irregularity within the spleen, which per the radiologist is new from November. This could represent a small infarct. The patient has not reported a history of any trauma, and there is certainly not an appearance of any recent injury to the spleen, as there is no perisplenic hematoma or inflammation. I suspect that this finding may be of no clinical significance. It is quite possible that this small splenic irregularity is old and is a stable change and asymptomatic. RECOMMENDATIONS: I would recommend treating the patient based on her other findings and the possibility of a urinary tract infection. The etiology of her nausea and vomiting is not entirely clear and I do not believe would be explained by the small splenic irregularity, even if this represented an acute infarction. Certainly with her long-term diabetes, she might well have some degree of gastroparesis, which could contribute. I do not believe antibiotics would be indicated for this splenic finding. I would not recommend any followup imaging just based on this. [facility] HOSPITALSpeedy
--- NOTE | 2017-06-18 17:18 | REP ---
PELVIC ULTRASOUND: Real-time sonographic evaluation of the pelvis was performed utilizing transabdominal and endovaginal technique. The bladder measures 11.3 x 6.5 x 10.3 cm. The uterus measures 9.2 x 4.1 x 5.3 cm. Endometrial thickness is normal at 10 mm. Right ovary measures 5.3 x 2.0 x 2.9 cm and the left ovary 5.0 x 1.9 x 3.1 cm. There is a somewhat hyperechoic area in the right ovary 1.8 cm in diameter which may represent a complex follicle. There is no other evidence of adnexal mass or free fluid. There is no evidence of ovarian torsion. Blood flow is seen in each ovary with duplex Doppler evaluation. IMPRESSION: Essentially negative pelvic ultrasound. There appears to be a complex dominant follicle in the right ovary. Signed by Marlo Rae MD 06/18/2017 08:13 P
--- NOTE | 2017-06-18 17:19 | IPNPDOC ---
Text Note Date of Service The patient was seen on 06/18/17. NOTE Subjective: Patient states she feels much better. Nausea and vomiting have subsided. No abdominal pain. Objective: Vitals: (see below) General: No acute distress, laying comfortably in bed. HEENT: Moist mucous membranes. Neck: No JVD or lymphadenopathy Cardiac: RRR, No murmurs Pulm: Clear to auscultation b/l. No wheezing, rhonchi Abd: NT/ND + BS Ext: No edema or cyanosis. Right BKA. Labs (see below) Images: CT Abd/pelvis 06/17/17 Impression: There is no bowel distension or obstruction. No CT evidence of colitis. No adenopathy or ascites. There are unusual hypo densities in the adnexa bilaterally of uncertain significance. This may be partially from the ovaries, however, ovarian cysts, hydrosalpinx or other adnexal abnormality could be further evaluated with pelvic ultrasound. There is a triangular shaped hypodensity in the posterior lower pole of the spleen, not present on a CT of 11/18/2016, compatible with splenic infarct or hematoma. Pelvis u/s and CXR pending. Assessment/Plan 1. Urinary tract infection- continue Rocephin. Cultures pending. History of Klebsiella pneumonia UTI susceptible to Rocephin. 2. Nausea and vomiting likely secondary to gastroparesis. Resolved. We will start clears, advance as tolerated. Reglan as needed. 3. Diabetes mellitus- continue Levemir. Sliding scale insulin. 4. Abnormal splenic findings on CAT scan. Evaluated by Dr. Ivory, with recommendations for close observation however no repeat imaging. Appreciate input. 5. Hyperlipidemia - continue statin 6. Anxiety/depression- continue home meds 7. Hypertension- continue home meds. 8. History of chronic as well as status post right BKA. 9. Acute kidney injury- likely secondary to nausea/vomiting in the setting of lisinopril. We'll discontinue lisinopril for now. Continue IV fluids. DVT prophylaxis- SCDs. VS,Fishbone, I+O VS, Fishbone, I+O Laboratory Tests 06/18/17 06:54 Red Blood Count 4.34, Mean Corpuscular Volume 78.6 L, Mean Corpuscular Hemoglobin 26.1 L, Mean Corpuscular Hemoglobin Concent 33.3, Red Cell Distribution Width 14.5, Neutrophils (%) (Auto) 80.9 H, Lymphocytes (%) (Auto) 11.0 L, Monocytes (%) (Auto) 6.1 H, Eosinophils (%) (Auto) 0.1, Basophils (%) ( Auto) 0.1, Neutrophils # (Auto) 9.9 H, Lymphocytes # (Auto) 1.6, Monocytes # ( Auto) 0.8, Eosinophils # (Auto) 0.0, Basophils # (Auto) 0.0, Calcium Level 9.0, Aspartate Amino Transf (AST/SGOT) 5 L, Alanine Aminotransferase (ALT/SGPT) 16, Alkaline Phosphatase 117, Total Bilirubin 0.2 #, Total Protein 6.8, Albumin 2.7 L Vital Signs Date Time Temp Pulse Resp B/P (MAP) Pulse Ox O2 Delivery O2 Flow Rate FiO2 06/18/17 14:29 140/85 06/18/17 14:00 99.7 106 20 95 Room Air 06/17/17 13:30 2.0 I&O- Last 24 Hours up to 6 AM 06/18/17 06:00 Intake Total 1250 ml Output Total 1000 ml Balance 250 ml NICKY DESOUZA MD Jun 18, 2017 17:19
[2017-06-18] MEDS: cefTRIAXone SOD 2 GM in D5W MINI-BAG PLUS 50 ML IV SCH (21:25)
[2017-06-18] MEDS: CitaloPRAM (CeleXA) 10 MG TABLET PO SCH (21:26)
[2017-06-18] MEDS: ATORVASTATIN 20 MG TAB PO SCH (21:26)
[2017-06-18] MEDS: PANTOPRAZOLE 40MG INJ (PROTONIX) (C9113) IV SCH (21:26)
[2017-06-18 22:00] VITALS: BP 142/88
[2017-06-19] MEDS: NS 1,000 ML IV SCH (01:59)
[2017-06-19] MEDS: HEPARIN SOD (PORCINE) 5000 UNITS/ML VIAL SQ SCH ×2 (05:48→15:08)
[2017-06-19] MEDS: HumaLOG INSULIN (NovoLOG) PER UNIT SC SCH ×5 (05:49→12:41)
[2017-06-19 06:00] VITALS: BP 174/110
--- NOTE | 2017-06-19 07:27 | REP ---
Portable chest, 09:18 p.m., single AP view, patient sitting: Comparison is 04/01/2017. The lung mancia are clear. Cardiac size is normal for positioning. The radha, mediastinum, and bony thorax are unremarkable. Impression: There are no acute cardiopulmonary findings. Signed by Marlo Chi MD 06/19/2017 07:19 A
[2017-06-19 07:28] LABS: BASO % 0.3 % (0.0-1.0); EOS # 0.1 K/mm3 (0.0-0.50); EOS % 0.9 % (0.0-3.0); LARGE UNSTAINED CELL # 0.2 K/mm3 (0.0-0.4); LARGE UNSTAINED CELL % 2.1 % (0.0-4.0); LYMPH # 1.9 K/mm3 (1.5-6.5); LYMPH % 17.4 % (24.0-44.0); MEAN CORPUSCULAR HEMOGLOBIN 27.1 pg (27.0-33.0); MEAN CORPUSCULAR HGB CONC 34.3 g/dl (32.0-36.5); MONO # 0.6 K/mm3 (0.0-0.8); MONO % 6.1 % (0.0-5.0); NEUTROPHILS # 7.1 K/mm3 (1.8-7.7); NEUTROPHILS % 73.3 % (36.0-66.0); PLATELET COUNT, AUTOMATED 358 k/mm3 (150-450); RED CELL DISTRIBUTION WIDTH 14.2 % (11.5-14.5); WHITE BLOOD COUNT 9.7 K/mm3 (4.0-10.0)
[2017-06-19 07:43] LABS: INR 0.86
[2017-06-19 07:50] LABS: ALBUMIN 2.3 GM/DL (3.2-5.2); ALBUMIN/GLOBULIN RATIO 0.59 (1.00-1.93); BILIRUBIN,TOTAL 0.2 MG/DL (0.2-1.0); CALCIUM LEVEL 8.3 MG/DL (8.5-10.1); CREATININE FOR GFR 1.17 MG/DL (0.55-1.02); GLOMERULAR FILTRATION RATE 58.6 (>60); POTASSIUM SERUM 3.2 MEQ/L (3.5-5.1); TOTAL PROTEIN 6.2 GM/DL (6.4-8.2)
[2017-06-19] MEDS ORDERED: POTASSIUM CHLORIDE 10 MEQ SR TABLET PO ONE (08:15)
[2017-06-19] MEDS: SENOKOT S TAB PO SCH (08:55)
[2017-06-19] MEDS: LEVEMIR (INSULIN DETEMIR) 1 UNITS/0.01ML SC SCH (08:55)
[2017-06-19] MEDS: GABAPENTIN 400 MG CAP PO SCH ×2 (08:56→15:08)
[2017-06-19] MEDS: DIVALPROEX 500 MG TAB PO SCH (08:56)
[2017-06-19] MEDS ORDERED: amLODIPine 10 MG TAB PO SCH (09:00)
[2017-06-19 10:03] VITALS: BP 180/89
[2017-06-19 15:16] LABS: ANION GAP 8 MEQ/L (8-16); BLOOD UREA NITROGEN 17 MG/DL (7-18); CALCIUM LEVEL 8.4 MG/DL (8.5-10.1); CARBON DIOXIDE LEVEL 27 MEQ/L (21-32); CHLORIDE LEVEL 99 MEQ/L (98-107); CREATININE FOR GFR 1.02 MG/DL (0.55-1.02); GLOMERULAR FILTRATION RATE > 60.0 (>60); GLUCOSE, FASTING 205 MG/DL (70-105); MAGNESIUM LEVEL 2.1 MG/DL (1.8-2.4); POTASSIUM SERUM 3.9 MEQ/L (3.5-5.1); SODIUM LEVEL 134 MEQ/L (136-145)
[2017-06-19 15:32] VITALS: BP 160/100
[2017-06-19] MEDS ORDERED: LEVA1TAB2 PO (15:37)
[2017-06-19] MEDS ORDERED: AMLO10TA2 PO (15:37)
[2017-06-19] MEDS ORDERED: LISINOPRIL 20 MG TAB PO ONE (15:45)
--- NOTE | 2017-06-19 15:48 | DS.PDOC ---
Discharge Summary General Date of Admission Jun 17, 2017 at 19:50 Date of Discharge 06/19/17 Attending Physician: NICKY DESOUZA MD Specialist/Consultants Involve: Artur Ivory Discharge Summary PROCEDURES PERFORMED DURING STAY: None. ADMITTING/DISCHARGE DIAGNOSES: 1. Urinary tract infection 2. Nausea and vomiting 3. Hyperglycemia 4. Hypokalemia replaced 5. RONALD resolved 6. DM 7. Splenic abnormality - evaluated by Dr. Ivory 8. HLD 9. HTN 10. H/o chronic osteomyelitis s/o right BKA 11. ? h/o gastroparesis COMPLICATIONS/CHIEF COMPLAINT: Intractable Vomiting. HISTORY OF PRESENT ILLNESS/HOSPITAL COURSE: This is a 18-year-old female past with history of diabetes mellitus, hypertension who presents with nausea/vomiting/abdominal pain. Patient was noted to have a urinary tract infection which was treated with antibiotics and patient will be set home for a complete course of antibiotics. During the course of hospitalization, patient did have a CAT scan of the abdomen and pelvis which revealed a splenic abnormality (see below) for which Dr. Ivory evaluated the patient and recommended to conservative observation for now. Patient's nausea/vomiting/abdominal pain has completely resolved. Questionable whether she had a history of gastroparesis as well. Patient also had a pelvic ultrasound which revealed a complex ovarian follicle for which she will need to follow-up outpatient with gynecology. Patient developed acute kidney injury secondary to dehydration in the setting of lisinopril. Her renal function is much improved now on her lisinopril has been restarted. Patient is return to ED if symptoms worsen. DISCHARGE MEDICATIONS: Please see below. ALLERGIES: Please see below. PHYSICAL EXAMINATION ON DISCHARGE: Vitals: (see below) General: No acute distress, laying comfortably in bed. HEENT: Moist mucous membranes. Neck: No JVD or lymphadenopathy Cardiac: RRR, No murmurs Pulm: Clear to auscultation b/l. No wheezing, rhonchi Abd: NT/ND + BS Ext: No edema or cyanosis. Right BKA. LABORATORY DATA: Please see below. IMAGING: CT Abd/pelvis 06/17/17 Impression: There is no bowel distension or obstruction. No CT evidence of colitis. No adenopathy or ascites. There are unusual hypo densities in the adnexa bilaterally of uncertain significance. This may be partially from the ovaries, however, ovarian cysts, hydrosalpinx or other adnexal abnormality could be further evaluated with pelvic ultrasound. There is a triangular shaped hypodensity in the posterior lower pole of the spleen, not present on a CT of 11/18/2016, compatible with splenic infarct or hematoma. Pelvic u/s 06/18/17 IMPRESSION: Essentially negative pelvic ultrasound. There appears to be a complex dominant follicle in the right ovary. PROGNOSIS: Fair ACTIVITY: As tolerated. DIET: Carb consistent DISCHARGE PLAN/DISPOSITION: D/c home DISCHARGE INSTRUCTIONS: 1. Follow-up with PCP in 1-2 weeks. Follow up with gynecology regarding complex ovarian follicle. DISCHARGE CONDITION: Stable. TIME SPENT ON DISCHARGE: Greater than 30 minutes. Vital Signs/I&Os Vital Signs Date Time Temp Pulse Resp B/P (MAP) Pulse Ox O2 Delivery O2 Flow Rate FiO2 06/19/17 15:32 160/100 (120) 06/19/17 10:03 110 06/19/17 08:00 Room Air 06/19/17 06:00 97.7 18 96 2.0 I&O- Last 24 Hours up to 6 AM 06/19/17 06:00 Intake Total 1800 ml Output Total 300 ml Balance 1500 ml Laboratory Data Labs 24H Laboratory Tests 2 06/18/17 17:18: Bedside Glucose (Misc Panel) 207H 06/18/17 23:54: Bedside Glucose (Misc Panel) 138H 06/19/17 05:28: Bedside Glucose (Misc Panel) 253H 06/19/17 07:03: White Blood Count 9.7, Red Blood Count 4.03, Hemoglobin 10.9L, Hematocrit 31.9L , Mean Corpuscular Volume 79.0L, Mean Corpuscular Hemoglobin 27.1, Mean Corpuscular Hemoglobin Concent 34.3, Red Cell Distribution Width 14.2, Platelet Count 358, Neutrophils (%) (Auto) 73.3H, Lymphocytes (%) (Auto) 17.4L, Monocytes (%) (Auto) 6.1H, Eosinophils (%) (Auto) 0.9, Basophils (%) (Auto) 0.3 , Neutrophils # (Auto) 7.1, Lymphocytes # (Auto) 1.9, Monocytes # (Auto) 0.6, Eosinophils # (Auto) 0.1, Basophils # (Auto) 0.0, Large Unclassified Cells % 2.1 , Large Unclassified Cells # 0.2, Prothrombin Time 11.8L, Prothromb Time International Ratio 0.86, Anion Gap 9, Glomerular Filtration Rate 58.6L, Blood Urea Nitrogen 21H, Creatinine 1.17H, Sodium Level 135L, Potassium Level 3.2L, Chloride Level 100, Carbon Dioxide Level 26, Calcium Level 8.3L, Aspartate Amino Transf (AST/SGOT) 9L, Alanine Aminotransferase (ALT/SGPT) 16, Alkaline Phosphatase 99, Total Bilirubin 0.2, Total Protein 6.2L, Albumin 2.3L, Albumin/ Globulin Ratio 0.59L 06/19/17 12:10: Bedside Glucose (Misc Panel) 191H 06/19/17 13:12: Anion Gap 8, Glomerular Filtration Rate > 60.0, Blood Urea Nitrogen 17, Creatinine 1.02, Sodium Level 134L, Potassium Level 3.9#, Chloride Level 99, Carbon Dioxide Level 27, Calcium Level 8.4L, Magnesium Level 2.1 CBC/BMP Laboratory Tests 06/19/17 07:03 Red Blood Count 4.03, Mean Corpuscular Volume 79.0 L, Mean Corpuscular Hemoglobin 27.1, Mean Corpuscular Hemoglobin Concent 34.3, Red Cell Distribution Width 14.2, Neutrophils (%) (Auto) 73.3 H, Lymphocytes (%) (Auto) 17.4 L, Monocytes (%) (Auto) 6.1 H, Eosinophils (%) (Auto) 0.9, Basophils (%) ( Auto) 0.3, Neutrophils # (Auto) 7.1, Lymphocytes # (Auto) 1.9, Monocytes # (Auto ) 0.6, Eosinophils # (Auto) 0.1, Basophils # (Auto) 0.0, Calcium Level 8.3 L, Aspartate Amino Transf (AST/SGOT) 9 L, Alanine Aminotransferase (ALT/SGPT) 16, Alkaline Phosphatase 99, Total Bilirubin 0.2, Total Protein 6.2 L, Albumin 2.3 L 06/19/17 13:12 Calcium Level 8.4 L FSBS Laboratory Tests Test 06/18/17 17:18 06/18/17 23:54 06/19/17 05:28 06/19/17 12:10 Range/Units Bedside Glucose (Misc Panel) 207 138 253 191 70-105 MG/DL Microbiology Microbiology 06/17/17 Blood Culture - Preliminary, Resulted No growth after 24 hours . All specim... 06/17/17 Blood Culture - Preliminary, Resulted No growth after 24 hours . All specim... 06/17/17 Urine Culture - Final, Complete Escherichia Coli Discharge Medications Scheduled (Depakote) 500 Mg Tab, 500 MG PO BID, (Reported) (Toujeo Solostar) 300 Unit/Ml Inj, 60 UNIT SC QHS, (Reported) Amlodipine Besylate (Amlodipine Besylate) 10 Mg Tab, 10 MG PO DAILY Atorvastatin Calcium (Atorvastatin Calcium) 20 Mg Tab, 20 MG PO QHS, (Reported) Citalopram Hydrobromide (Celexa) 10 Mg Tab, 10 MG PO QHS, (Reported) Ergocalciferol (Vitamin D) 50,000 Unit Cap, 50,000 UNIT PO 1XWK, (Reported) MONDAYS Gabapentin (Gabapentin) 800 Mg Tab, 800 MG PO TID, (Reported) Insulin Aspart (Novolog) 100 U/Ml Inj, 15 UNITS SC AC, (Reported) Levofloxacin Hemihydrate (Levaquin) 500 Mg Tab, 500 MG PO DAILY Lisinopril (Lisinopril) 20 Mg Tab, 20 MG PO DAILY, (Reported) Metformin Hydrochloride (Metformin HCl) 500 Mg Tab, 500 MG PO BID, (Reported) Sitagliptin (Januvia) 50 Mg Tab, 50 MG PO DAILY, (Reported) Scheduled PRN Senna (Senna Lax) 8.6 Mg Tab, 8.6 MG PO for CONSTIPATION, (Reported) Allergies Coded Allergies: Metronidazole (Verified Allergy, Intermediate, SWELLING, 06/17/17) Oxycodone (Verified Allergy, Intermediate, SWELLING, 06/17/17) NICKY DESOUZA MD Jun 19, 2017 15:48
[2017-06-19 16:00] VITALS: BP 160/100
[2017-06-20 08:07] LABS: PROTEIN C ANTIGEN 182 % (60-150); PROTEIN S ANTIGEN FREE 119 % (57-157); PROTEIN S ANTIGEN TOTAL 180 % (60-150)
[2017-06-25 00:07] LABS: SJOGREN'S ANTI SS-A <0.2 AI (0.0-0.9); SJOGREN'S ANTI SS-B <0.2 AI (0.0-0.9)
[2017-09-12] MEDS ORDERED: GABA-282 PO (06:33)
[2017-09-12] MEDS ORDERED: SITA50TAB PO (06:33)
[2017-09-12] MEDS ORDERED: METF500T13 PO (06:33)
[2017-09-12] MEDS ORDERED: AMLO10TA2 PO (06:33)
[2017-09-12] MEDS ORDERED: INSUH10VL SC (06:33)
[2017-09-12] MEDS ORDERED: CELE10TA PO (06:33)
[2017-09-12] MEDS ORDERED: GABA600T PO (06:33)
[2017-09-12] MEDS ORDERED: AMIT25TA PO (06:33)
[2017-09-12] MEDS ORDERED: LISI-538 PO (06:33)
[2017-09-12] MEDS ORDERED: PROM25SU PR (06:33)
[2017-09-12] MEDS ORDERED: HYDR12CA PO (06:33)
[2017-09-12] MEDS ORDERED: TOUJ1.2I SC (06:33)
[2017-09-12] MEDS ORDERED: ATOR1TAB21 PO (06:33)
== END 2017-06-19 16:23 | disposition home or self-care (01) | DRG 463 ==
LOC: M ED 11:40 → M ED INP 19:50 → M MS5PR 23:20
PROVIDERS: ADMIT Hospitalist; ATTEND Internal Medicine
DX: N39.0 Urinary tract infection, site not specified (principal); N17.9 Acute kidney failure, unspecified; E10.43 Type 1 diabetes mellitus with diabetic autonomic (poly)neuropathy; E10.65 Type 1 diabetes mellitus with hyperglycemia; R11.2 Nausea with vomiting, unspecified; R10.9 Unspecified abdominal pain; I10 Essential (primary) hypertension; E87.6 Hypokalemia; Z89.511 Acquired absence of right leg below knee; E86.0 Dehydration; N83.8 Other noninflammatory disorders of ovary, fallopian tube and broad ligament; D73.9 Disease of spleen, unspecified; Z79.899 Other long term (current) drug therapy; Z79.4 Long term (current) use of insulin; Z88.5 Allergy status to narcotic agent; Z88.8 Allergy status to other drugs, medicaments and biological substances; E78.5 Hyperlipidemia, unspecified; F41.9 Anxiety disorder, unspecified; F32.9 Major depressive disorder, single episode, unspecified

== ENCOUNTER 2017-07-20 00:52 | Emergency (ER) | payer MEDICAID, OTHER ==
[~2017-07-20] VITALS: Ht 154.9 cm; Wt 83.0 kg
[~2017-07-20 00:52] MED LIST changes: +AMLO10TA2 PO; +ATOR1TAB21 PO; +LEVA1TAB2 PO; +SITA50TAB PO; +TOUJ1.2I SC
[2017-07-20] MEDS ORDERED: NS 1,000 ML IV ONE (01:45)
[2017-07-20] MEDS ORDERED: ONDANSETRON 4MG/2ML VIAL (J2405) IV ONE (01:45)
[2017-07-20] MEDS: MORPHINE 4 MG/ML 1ML SYRINGE IV PRN ×2 (02:01→03:28)
[2017-07-20 02:09] LABS: BASO % 0.5 % (0.0-1.0); EOS # 0.1 K/mm3 (0.0-0.50); EOS % 1.5 % (0.0-3.0); LARGE UNSTAINED CELL # 0.2 K/mm3 (0.0-0.4); LARGE UNSTAINED CELL % 1.9 % (0.0-4.0); LYMPH # 1.2 K/mm3 (1.5-6.5); LYMPH % 13.5 % (24.0-44.0); MEAN CORPUSCULAR HEMOGLOBIN 26.5 pg (27.0-33.0); MEAN CORPUSCULAR VOLUME 80.4 fl (80.0-96.0); MONO # 0.4 K/mm3 (0.0-0.8); MONO % 4.8 % (0.0-5.0); NEUTROPHILS % 77.8 % (36.0-66.0); PLATELET COUNT, AUTOMATED 430 k/mm3 (150-450); RED CELL DISTRIBUTION WIDTH 13.5 % (11.5-14.5)
[2017-07-20 02:11] LABS: VENOUS BASE EXCESS 1.1 (-2.0-2.0); VENOUS O2 SATURATION 68.8 % (60.0-80.0); VENOUS PARTIAL PRESSURE O2 36.4 mmHg (30.0-50.0); VENOUS STANDARD HCO3 24.8 MEQ/L; VENOUS TOTAL CO2 28.4 MEQ/L (24.0-28.0)
[2017-07-20 03:50] LABS: OSMOLALITY SERUM 302 MOSM/KG (275-295)
[2017-07-20 03:51] LABS: CONTROL LINE HCG INT CTR LINE PRESENT
[2017-07-20 03:59] LABS: ALBUMIN 2.4 GM/DL (3.2-5.2); ALBUMIN/GLOBULIN RATIO 0.71 (1.00-1.93); ALKALINE PHOSPHATASE 114 U/L (45-117); ALT/SGPT 19 U/L (12-78); ANION GAP 11 MEQ/L (8-16); AST/SGOT 7 U/L (15-37); BILIRUBIN,DIRECT < 0.1 MG/DL (0.0-0.2); BILIRUBIN,TOTAL 0.3 MG/DL (0.2-1.0); BLOOD UREA NITROGEN 17 MG/DL (7-18); CALCIUM LEVEL 8.2 MG/DL (8.5-10.1); CARBON DIOXIDE LEVEL 24 MEQ/L (21-32); CHLORIDE LEVEL 102 MEQ/L (98-107); CREATININE FOR GFR 0.72 MG/DL (0.55-1.02); GLOMERULAR FILTRATION RATE > 60.0 (>60); POTASSIUM SERUM 3.8 MEQ/L (3.5-5.1); SODIUM LEVEL 137 MEQ/L (136-145); TOTAL PROTEIN 5.8 GM/DL (6.4-8.2)
[2017-07-20 04:09] LABS: GLUCOSE, FASTING 448 MG/DL (70-105)
[2017-07-20] MEDS ORDERED: HumuLIN R (REGULAR) INSULIN (NovoLIN R) **100U/ML** PER UNIT IV ONE (04:30)
[2017-07-20] MEDS ORDERED: ISOVUE-370 76% 100ML VIAL (Q9967) As Ordered ONE (04:38)
[2017-07-20] MEDS ORDERED: METOCLOPRAMIDE INJ 10MG/2ML VIAL (J2765) As Ordered ONE (04:53)
[2017-07-20] MEDS ORDERED: METOCLOPRAMIDE INJ 10MG/2ML VIAL (J2765) IV ONE (05:00)
--- NOTE | 2017-07-20 05:40 | REPUSA ---
CLINICAL HISTORY: Abdominal pain. TECHNIQUE: Multiple axial, sagittal and coronal CT images were obtained through the abdomen and pelvi s after administration of intravenous contrast material. COMMENTS: The prior exam on 06/17/2017. Unchanged ill-defined mid splenic hypodensity. Increased bilateral basilar atelectatic pulmonary changes. Unchanged hepatomegaly. Interval appearance of significant distention of the bladder suggestive of urinary retention. Secondary mild fullness of the collecting systems. There is no intra or extrahepatic biliary ductal dilatation. The gallbladder is within normal limits. The pancreas is of normal contour and attenuation characteri stics. There is no evidence of adrenal mass. Both kidneys demonstrate prompt and equal nephrograms. The kidneys are normal in size, shape and conf iguration. There is no evidence of renal or ureteral mass. No renal or ureteral calculi are identifie d. No evidence for appendicitis. There is no bowel wall thickening. No evidence for small or large manda l obstruction. There is no evidence of abdominal ascites or lymphadenopathy. There is no evidence of intrinsic or extrinsic bladder mass. There is no pelvic ascites or lymphadenopathy. Uncomplicated colonic diverticulosis. Images of the lung bases show no evidence of pleural or parenchymal mass. There are no pleural effusi ons. The bony structures are free of lytic or blastic lesions. Multilevel degenerative changes are seen in volving the thoracolumbar spine. Scattered calcifications are seen involving the aorta and major bran ches compatible with atherosclerosis. IMPRESSION: Interval appearance of significant distention of the bladder suggestive of urinary tension. The degre e of bladder distention has significantly increased since prior exam. The appearance of mild bilateral fullness of the collecting system secondary to a distended bladder. Unchanged ill-defined hypodensity of the spleen. This can be secondary to traumatic pathology versus developing phlegmon. Clinical correlation is suggested. Increased basilar atelectatic pulmonary changes. Thank you for your kind referral of this patient.
[2017-07-20 07:00] VITALS: BP 190/100
[2017-07-20] MEDS ORDERED: OXYCODONE/APAP 5MG/325MG(BULK FOR ED) 1 TABLET PO ONE (07:00)
[2017-07-20] MEDS ORDERED: amLODIPine 5 MG TAB PO ONE (07:00)
[2017-07-20] MEDS ORDERED: REGL10TA6 PO (07:01)
[2017-07-20] MEDS ORDERED: NORCO 5/325MG TABLET (BULK FOR ED) PO ONE (07:15)
[2017-07-20 07:18] VITALS: BP 189/104
--- NOTE | 2017-07-20 08:18 | ECGEPIP ---
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
--- NOTE | 2017-07-21 07:10 | ED PDOC ---
Post-Departure Follow-Up radiology report faxed to [facility] Radhika Moura MD Jul 21, 2017 07:10
[2017-07-21] MEDS ORDERED: PHEN1SUP6 PR (23:47)
[2017-09-12] MEDS ORDERED: AMIT25TA PO (06:33)
[2017-09-12] MEDS ORDERED: CELE10TA PO (06:33)
[2017-09-12] MEDS ORDERED: INSUH10VL SC (06:33)
[2017-09-12] MEDS ORDERED: ATOR1TAB21 PO (06:33)
[2017-09-12] MEDS ORDERED: TOUJ1.2I SC (06:33)
[2017-09-12] MEDS ORDERED: HYDR12CA PO (06:33)
[2017-09-12] MEDS ORDERED: GABA600T PO (06:33)
[2017-09-12] MEDS ORDERED: SITA50TAB PO (06:33)
[2017-09-12] MEDS ORDERED: METF500T13 PO (06:33)
[2017-09-12] MEDS ORDERED: PROM25SU PR (06:33)
[2017-09-12] MEDS ORDERED: LISI-538 PO (06:33)
[2017-09-12] MEDS ORDERED: GABA-282 PO (06:33)
[2017-09-12] MEDS ORDERED: AMLO10TA2 PO (06:33)
== END 2017-07-20 07:30 | disposition home or self-care (01) ==
LOC: M ED 00:52
DX: R33.9 Retention of urine, unspecified (principal); R11.10 Vomiting, unspecified; E11.9 Type 2 diabetes mellitus without complications; K59.00 Constipation, unspecified; Z79.899 Other long term (current) drug therapy; Z79.84 Long term (current) use of oral hypoglycemic drugs; Z79.4 Long term (current) use of insulin
CPT/HCPCS: 36415; 74177; 80048; 80076; 81001; 82803; 83690; 83930; 84703; 85025; 87040; 87086; 93000; 93041; 96374; 96375; 96376; 99285; J2405; J2765; Q9967

== ENCOUNTER 2017-07-21 14:45 | Emergency (ER) | payer OTHER ==
[~2017-07-21] VITALS: Ht 154.9 cm; Wt 63.6 kg
[~2017-07-21 14:45] MED LIST changes: +REGL10TA6 PO
[2017-07-21] MEDS ORDERED: ONDANSETRON 4 MG ORAL DISINTEGRATING TAB (S0181) PO ONE (16:00)
[2017-07-21] MEDS ORDERED: NS 1,000 ML IV ONE ×2 (16:15→20:15)
[2017-07-21 17:02] LABS: BASO % 0.3 % (0.0-1.0); EOS % 0.1 % (0.0-3.0); LARGE UNSTAINED CELL # 0.1 K/mm3 (0.0-0.4); LARGE UNSTAINED CELL % 0.7 % (0.0-4.0); LYMPH # 0.9 K/mm3 (1.5-6.5); LYMPH % 8.4 % (24.0-44.0); MEAN CORPUSCULAR HEMOGLOBIN 26.5 pg (27.0-33.0); MEAN CORPUSCULAR VOLUME 80.2 fl (80.0-96.0); MONO # 0.4 K/mm3 (0.0-0.8); NEUTROPHILS # 8.4 K/mm3 (1.8-7.7); NEUTROPHILS % 86.4 % (36.0-66.0); PLATELET COUNT, AUTOMATED 444 k/mm3 (150-450); RED CELL DISTRIBUTION WIDTH 13.5 % (11.5-14.5); WHITE BLOOD COUNT 9.7 K/mm3 (4.0-10.0)
[2017-07-21 17:27] LABS: ALBUMIN 2.4 GM/DL (3.2-5.2); ALBUMIN/GLOBULIN RATIO 0.55 (1.00-1.93); ALKALINE PHOSPHATASE 108 U/L (45-117); ALT/SGPT 17 U/L (12-78); ANION GAP 14 MEQ/L (8-16); AST/SGOT 26 U/L (15-37); BILIRUBIN,DIRECT < 0.1 MG/DL (0.0-0.2); BILIRUBIN,TOTAL 0.5 MG/DL (0.2-1.0); BLOOD UREA NITROGEN 13 MG/DL (7-18); CARBON DIOXIDE LEVEL 24 MEQ/L (21-32); CHLORIDE LEVEL 96 MEQ/L (98-107); CREATININE FOR GFR 0.76 MG/DL (0.55-1.02); GLOMERULAR FILTRATION RATE > 60.0 (>60); GLUCOSE, FASTING 368 MG/DL (70-105); SODIUM LEVEL 134 MEQ/L (136-145); TOTAL PROTEIN 6.8 GM/DL (6.4-8.2)
[2017-07-21 17:29] LABS: POTASSIUM SERUM 4.1 MEQ/L (3.5-5.1)
[2017-07-21 17:31] LABS: CONTROL LINE HCG INT CTR LINE PRESENT
[2017-07-21] MEDS ORDERED: METOCLOPRAMIDE INJ 10MG/2ML VIAL (J2765) As Ordered ONE (17:36)
[2017-07-21] MEDS ORDERED: METOCLOPRAMIDE INJ 10MG/2ML VIAL (J2765) IV ONE (18:00)
--- NOTE | 2017-07-21 18:23 | REP ---
Clinical: Constipation and abdominal pain. Technique: Upright view of the chest with supine and upright views of the abdomen and pelvis. Findings: Frontal upright view of the chest demonstrates no acute cardiopulmonary process or free air below the diaphragm to suspect pneumoperitoneum. Supine and upright views of the abdomen and pelvis demonstrate nonspecific bowel gas pattern without obstruction or perforation. No organomegaly. No abnormal calcifications. Skeletal structures normal for age. Impression: Nonspecific bowel gas pattern. Signed by Louis Lora MD 07/21/2017 06:14 P
[2017-07-21] MEDS ORDERED: MAGNESIUM CITRATE 300 ML BTL PO ONE (18:45)
[2017-07-21 19:10] LABS: YEAST LIKE CELL URINE AUTO SMALL
[2017-07-21] MEDS ORDERED: PROMETHAZINE INJ 25 MG/ML VIAL (J2550) IV ONE (20:30)
[2017-07-21 21:01] LABS: ABG BASE EXCESS -3.3 (-2.0-2.0); ABG HCO3 20.7 MEQ/L (22.0-26.0); ABG PARTIAL PRESSURE CO2 33.7 mmHg (35.0-45.0); ABG PARTIAL PRESSURE O2 99.5 mmHg (75.0-100.0); ABG STANDARD HCO3 21.7 MEQ/L (22.0-26.0); ABG TOTAL CO2 21.7 MEQ/L (22.0-29.0); ABG pH (ARTERIAL) 7.406 UNITS (7.350-7.450)
[2017-07-21] MEDS: HumuLIN R (REGULAR) INSULIN (NovoLIN R) **100U/ML** PER UNIT IV ONE ×2 (21:55→22:00)
[2017-07-21] MEDS ORDERED: HumuLIN R (REGULAR) INSULIN (NovoLIN R) **100U/ML** PER UNIT IV ONE (23:00)
[2017-07-21 23:43] VITALS: BP 144/79
[2017-07-21] MEDS ORDERED: PROMETHAZINE 25 MG SUPP PR ONE (23:45)
[2017-07-21] MEDS ORDERED: PHEN1SUP6 PR (23:47)
[2017-09-12] MEDS ORDERED: ATOR1TAB21 PO (06:33)
[2017-09-12] MEDS ORDERED: HYDR12CA PO (06:33)
[2017-09-12] MEDS ORDERED: AMLO10TA2 PO (06:33)
[2017-09-12] MEDS ORDERED: CELE10TA PO (06:33)
[2017-09-12] MEDS ORDERED: INSUH10VL SC (06:33)
[2017-09-12] MEDS ORDERED: SITA50TAB PO (06:33)
[2017-09-12] MEDS ORDERED: PROM25SU PR (06:33)
[2017-09-12] MEDS ORDERED: GABA-282 PO (06:33)
[2017-09-12] MEDS ORDERED: AMIT25TA PO (06:33)
[2017-09-12] MEDS ORDERED: LISI-538 PO (06:33)
[2017-09-12] MEDS ORDERED: TOUJ1.2I SC (06:33)
[2017-09-12] MEDS ORDERED: GABA600T PO (06:33)
[2017-09-12] MEDS ORDERED: METF500T13 PO (06:33)
== END 2017-07-22 00:11 | disposition home or self-care (01) ==
LOC: M ED 14:45
DX: R11.2 Nausea with vomiting, unspecified (principal); K59.00 Constipation, unspecified; E10.65 Type 1 diabetes mellitus with hyperglycemia; I10 Essential (primary) hypertension; A60.09 Herpesviral infection of other urogenital tract; M54.9 Dorsalgia, unspecified; F10.10 Alcohol abuse, uncomplicated; F31.9 Bipolar disorder, unspecified; F41.9 Anxiety disorder, unspecified; Z88.1 Allergy status to other antibiotic agents; Z88.5 Allergy status to narcotic agent; Z79.899 Other long term (current) drug therapy
CPT/HCPCS: 36600; 74022; 80048; 80076; 81001; 82803; 83690; 84703; 85025; 96361; 96374; 96375; 99291; J2765

== ENCOUNTER 2017-09-13 23:54 | Emergency (ER) | payer OTHER ==
[~2017-09-13] VITALS: Ht 154.9 cm; Wt 83.2 kg
[~2017-09-13 23:54] MED LIST changes: +AMIT25TA PO; +GABA-282 PO; +GABA600T PO; +HYDR12CA PO; +PHEN1SUP6 PR; +PROM25SU PR
[2017-09-14] MEDS ORDERED: METOCLOPRAMIDE INJ 10MG/2ML VIAL (J2765) IV ONE (00:30)
[2017-09-14] MEDS ORDERED: NS 1,000 ML IV ONE (00:30)
[2017-09-14 01:43] LABS: BASO # 0.1 10^3/uL (0.0-0.2); BASO % 0.7 % (0.0-1.0); EOS # 0.1 10^3/uL (0.0-0.50); EOS % 1.1 % (0.0-3.0); IMMATURE GRANULOCYTE % 0.5 % (0-0); LYMPH # 1.1 10^3/uL (1.5-6.5); MEAN CORPUSCULAR HEMOGLOBIN 25.6 pg (27.0-33.0); MEAN CORPUSCULAR HGB CONC 33.6 g/dl (32.0-36.5); MEAN CORPUSCULAR VOLUME 76.2 fl (80.0-96.0); MONO # 0.5 10^3/uL (0.0-0.8); MONO % 4.5 % (0.0-5.0); NEUTROPHILS # 8.9 10^3/uL (1.8-7.7); NEUTROPHILS % 83.2 % (36.0-66.0); PLATELET COUNT, AUTOMATED 491 10^3/uL (150-450); RED CELL DISTRIBUTION WIDTH 12.6 % (11.5-14.5); WHITE BLOOD COUNT 10.7 10^3/uL (4.0-10.0)
[2017-09-14 02:01] LABS: CONTROL LINE HCG INT CTR LINE PRESENT
[2017-09-14 02:09] LABS: ALBUMIN 2.5 GM/DL (3.2-5.2); ALBUMIN/GLOBULIN RATIO 0.61 (1.00-1.93); ALKALINE PHOSPHATASE 202 U/L (45-117); ALT/SGPT 25 U/L (12-78); AMYLASE 20 U/L (25-115); ANION GAP 11 MEQ/L (8-16); AST/SGOT 17 U/L (7-37); BILIRUBIN,DIRECT 0.1 MG/DL (0.0-0.2); BILIRUBIN,TOTAL 0.4 MG/DL (0.2-1.0); BLOOD UREA NITROGEN 28 MG/DL (7-18); CALCIUM LEVEL 8.7 MG/DL (8.5-10.1); CARBON DIOXIDE LEVEL 25 MEQ/L (21-32); CHLORIDE LEVEL 95 MEQ/L (98-107); CREATININE FOR GFR 1.05 MG/DL (0.55-1.02); GLOMERULAR FILTRATION RATE > 60.0 (>60); POTASSIUM SERUM 4.1 MEQ/L (3.5-5.1); SODIUM LEVEL 131 MEQ/L (136-145); TOTAL PROTEIN 6.6 GM/DL (6.4-8.2)
[2017-09-14 02:18] LABS: GLUCOSE, FASTING 588 MG/DL (70-105)
[2017-09-14] MEDS ORDERED: CIPROFLOXACIN 400 MG in APPROPRIATE DILUENT 1 EA IV ONE (02:30)
[2017-09-14] MEDS ORDERED: HumuLIN R (REGULAR) INSULIN (NovoLIN R) **100U/ML** PER UNIT IV ONE (02:30)
[2017-09-14] MEDS ORDERED: NS 500 ML IV ONE (02:30)
[2017-09-14] MEDS ORDERED: HumaLOG INSULIN (NovoLOG) PER UNIT SC STA ×3 (04:07→05:10)
[2017-09-14 04:42] LABS: CALCIUM LEVEL 8.6 MG/DL (8.5-10.1); CREATININE FOR GFR 1.49 MG/DL (0.55-1.02); POTASSIUM SERUM 3.7 MEQ/L (3.5-5.1)
[2017-09-14] MEDS ORDERED: CIPR-249 PO ×2 (05:17→23:33)
[2017-09-14 06:03] VITALS: BP 126/67
== END 2017-09-14 06:20 | disposition home or self-care (01) ==
LOC: EDBD 23:54 → M ED 23:54
DX: E11.65 Type 2 diabetes mellitus with hyperglycemia (principal); N39.0 Urinary tract infection, site not specified; I10 Essential (primary) hypertension; E78.5 Hyperlipidemia, unspecified; F32.9 Major depressive disorder, single episode, unspecified; Z89.429 Acquired absence of other toe(s), unspecified side; Z79.4 Long term (current) use of insulin; Z79.899 Other long term (current) drug therapy; Z88.5 Allergy status to narcotic agent; Z88.1 Allergy status to other antibiotic agents
CPT/HCPCS: 36415; 80048; 80076; 81001; 82150; 83690; 84703; 85025; 87088; 87186; 96374; 96375; 99284; J0744; J2765

== ENCOUNTER 2017-09-14 21:27 | Observation (INO) | payer OTHER ==
[~2017-09-14] VITALS: Ht 154.9 cm; Wt 79.0 kg
[2017-09-14] MEDS ORDERED: NS 1,000 ML IV ONE (22:15)
[2017-09-14 23:00] LABS: BASO % 0.3 % (0.0-1.0); EOS % 0.3 % (0.0-3.0); IMMATURE GRANULOCYTE % 0.7 % (0-0); LYMPH # 1.2 10^3/uL (1.5-6.5); LYMPH % 11.2 % (24.0-44.0); MEAN CORPUSCULAR HEMOGLOBIN 26.1 pg (27.0-33.0); MEAN CORPUSCULAR HGB CONC 34.3 g/dl (32.0-36.5); MONO # 0.6 10^3/uL (0.0-0.8); MONO % 5.9 % (0.0-5.0); NEUTROPHILS # 8.9 10^3/uL (1.8-7.7); NEUTROPHILS % 81.6 % (36.0-66.0); PLATELET COUNT, AUTOMATED 512 10^3/uL (150-450); RED CELL DISTRIBUTION WIDTH 12.6 % (11.5-14.5); WHITE BLOOD COUNT 10.9 10^3/uL (4.0-10.0)
[2017-09-14 23:01] LABS: VENOUS BASE EXCESS 5.5 (-2.0-2.0); VENOUS O2 SATURATION 99.6 % (60.0-80.0); VENOUS PARTIAL PRESSURE CO2 39.2 mmHg (38.0-50.0); VENOUS PARTIAL PRESSURE O2 178.5 mmHg (30.0-50.0); VENOUS STANDARD HCO3 29.4 MEQ/L; VENOUS TOTAL CO2 30.3 MEQ/L (24.0-28.0)
[2017-09-14 23:20] LABS: CONTROL LINE HCG INT CTR LINE PRESENT
[2017-09-14] MEDS ORDERED: CIPR-249 PO (23:33)
[2017-09-14 23:38] LABS: BLOOD UREA NITROGEN 17 MG/DL (7-18); CREATININE FOR GFR 0.71 MG/DL (0.55-1.02); GLOMERULAR FILTRATION RATE > 60.0 (>60); GLUCOSE, FASTING 383 MG/DL (70-105)
[2017-09-14 23:39] LABS: ALT/SGPT 20 U/L (12-78); ANION GAP 9 MEQ/L (8-16); AST/SGOT 12 U/L (7-37); CALCIUM LEVEL 8.7 MG/DL (8.5-10.1); CARBON DIOXIDE LEVEL 27 MEQ/L (21-32); CHLORIDE LEVEL 91 MEQ/L (98-107); PHOSPHORUS LEVEL 3.1 MG/DL (2.5-4.9); POTASSIUM SERUM 4.1 MEQ/L (3.5-5.1); SODIUM LEVEL 127 MEQ/L (136-145)
[2017-09-14 23:40] LABS: ALBUMIN 2.2 GM/DL (3.2-5.2); ALBUMIN/GLOBULIN RATIO 0.55 (1.00-1.93); ALKALINE PHOSPHATASE 173 U/L (45-117); BILIRUBIN,DIRECT < 0.1 MG/DL (0.0-0.2); BILIRUBIN,TOTAL 0.4 MG/DL (0.2-1.0); MAGNESIUM LEVEL 2.1 MG/DL (1.8-2.4); TOTAL PROTEIN 6.2 GM/DL (6.4-8.2)
[2017-09-14] MEDS ORDERED: hydrALAZINE INJ 20 MG/ML VIAL IV ONE (23:45)
[2017-09-14] MEDS ORDERED: ONDANSETRON 4MG/2ML VIAL (J2405) IV ONE (23:45)
[2017-09-14 23:50] LABS: OSMOLALITY SERUM 288 MOSM/KG (275-295)
[2017-09-14] MEDS ORDERED: ISOVUE-370 76% 100ML VIAL (Q9967) As Ordered ONE (23:51)
[2017-09-15] MEDS ORDERED: METOCLOPRAMIDE INJ 10MG/2ML VIAL (J2765) As Ordered ONE (00:36)
[2017-09-15] MEDS ORDERED: METOCLOPRAMIDE INJ 10MG/2ML VIAL (J2765) IV ONE (00:45)
--- NOTE | 2017-09-15 01:30 | REPUSA ---
CLINICAL HISTORY: Abdominal pain. TECHNIQUE: Multiple axial, sagittal and coronal CT images were obtained through the abdomen and pelvi s after administration of intravenous contrast material. COMMENTS: Comparison to prior exam on 07/20/2017. The liver remains enlarged with decreased attenuation without mass or defect. There is no intra or ex trahepatic biliary ductal dilatation. Decreased hypodensity of the spleen. The gallbladder is within normal limits. The pancreas is of normal contour and attenuation characteristics. There is no evidenc e of adrenal mass. Both kidneys demonstrate prompt and equal nephrograms. The kidneys are normal in size, shape and conf iguration. There is no evidence of renal or ureteral mass. No renal or ureteral calculi are identifie d. There is no hydroureter or hydronephrosis. No evidence for appendicitis. There is no bowel wall thickening. No evidence for small or large bowel obstruction. Significantly distended bladder. Diffuse thickening of the bladder. Air density in the bladder. There is small amount of free pelvic fluid. Images of the lung bases show no evidence of pleural or parenchymal mass. There are no pleural effusi ons. The bony structures are free of lytic or blastic lesions. Multilevel degenerative changes are seen in volving the thoracolumbar spine. Scattered calcifications are seen involving the aorta and major bran ches compatible with atherosclerosis. IMPRESSION: Urinary retention. Air densities in the bladder. Probably recent intervention. Small amount of free pelvic fluid. Thank you for your kind referral of this patient.
[2017-09-15] MEDS ORDERED: HumuLIN R (REGULAR) INSULIN (NovoLIN R) **100U/ML** PER UNIT IV ONE ×2 (02:00→02:45)
[2017-09-15 02:22] LABS: VENOUS BASE EXCESS -1.7 (-2.0-2.0); VENOUS O2 SATURATION 78.5 % (60.0-80.0); VENOUS PARTIAL PRESSURE CO2 41.7 mmHg (38.0-50.0); VENOUS PARTIAL PRESSURE O2 42.8 mmHg (30.0-50.0); VENOUS STANDARD HCO3 22.7 MEQ/L; VENOUS TOTAL CO2 24.8 MEQ/L (24.0-28.0)
[2017-09-15 02:38] LABS: ANION GAP 9 MEQ/L (8-16); BLOOD UREA NITROGEN 16 MG/DL (7-18); CALCIUM LEVEL 8.5 MG/DL (8.5-10.1); CARBON DIOXIDE LEVEL 26 MEQ/L (21-32); CHLORIDE LEVEL 94 MEQ/L (98-107); CREATININE FOR GFR 1.05 MG/DL (0.55-1.02); GLOMERULAR FILTRATION RATE > 60.0 (>60); GLUCOSE, FASTING 388 MG/DL (70-105); POTASSIUM SERUM 3.5 MEQ/L (3.5-5.1); SODIUM LEVEL 129 MEQ/L (136-145)
[2017-09-15 04:00] LABS: METHADONE URINE NEGATIVE (NEGATIVE)
[2017-09-15] MEDS: NS 1,000 ML IV SCH ×2 (05:21→12:17)
[2017-09-15] MEDS ORDERED: HumaLOG INSULIN (NovoLOG) PER UNIT SC ONE (05:30)
[2017-09-15] MEDS ORDERED: ONDANSETRON 4MG/2ML VIAL (J2405) IV PRN (05:30)
[2017-09-15] MEDS ORDERED: PROMETHAZINE 25 MG SUPP PR PRN (05:30)
[2017-09-15] MEDS ORDERED: DEXTROSE 50% 50 ML SYRINGE IV PRN (05:30)
[2017-09-15] MEDS ORDERED: GLUCAGON FOR INJ 1 MG VIAL (J1610) SC PRN (05:30)
[2017-09-15] MEDS ORDERED: ACETAMINOPHEN TAB 650MG DOSE (2X325MG) PO PRN (05:30)
[2017-09-15] MEDS ORDERED: LEVEMIR (INSULIN DETEMIR) 1 UNITS/0.01ML SC ONE (05:30)
[2017-09-15] MEDS ORDERED: GLUCOSE 4 GM CHEW TABLET PO PRN (05:30)
[2017-09-15] MEDS ORDERED: CIPROFLOXACIN 500 MG TAB PO SCH (06:00)
[2017-09-15] MEDS ORDERED: MORPHINE 2 MG/ML 1ML SYRINGE IV ONE (06:00)
[2017-09-15] MEDS ORDERED: cefTRIAXone SOD 1 GM in D5W 50 ML IV ONE (06:15)
[2017-09-15] MEDS: HEPARIN SOD (PORCINE) 5000 UNITS/ML VIAL SC SCH ×3 (06:20→20:53)
[2017-09-15] MEDS: METOCLOPRAMIDE INJ 10MG/2ML VIAL (J2765) IV SCH ×3 (06:28→17:11)
[2017-09-15] MEDS: NITROGLYCERIN 2% OINT 1 GM *U/D* PKT TOP SCH ×3 (06:29→18:33)
--- NOTE | 2017-09-15 06:36 | ECGEPIP ---
Stationary ECG Study [facility] - ED Test Date: 2017-09-14 Pat Name: RAFI YOUNG Department: Room: - Gender: F Radiocommunications Technician: natanael : 1990 Requested By: MATT FRENCH Order Number: [id number] Reading MD: Abdirahman López Measurements Intervals [place] Rate: 109 P: 22 AL: 155 QRS: 10 QRSD: 84 T: 72 QT: 341 QTc: 461 Interpretive Statements SINUS TACHYCARDIA NONSPECIFIC ST & T-WAVE ABNORMALITY ABNORMAL RHYTHM ECG DELAYED R WAVE PROGRESSION PROLONGED QTC CW 07/20/17 RATE INCREASED PROLONGED QTC Electronically Signed On 09-15-2017 6:36:25 EST by Abdirahman López
[2017-09-15] MEDS: HumaLOG INSULIN (NovoLOG) PER UNIT SC SCH ×6 (07:30→17:30)
[2017-09-15] MEDS: MORPHINE 2 MG/ML 1ML SYRINGE IV PRN ×2 (08:19→12:20)
[2017-09-15] MEDS ORDERED: amLODIPine 10 MG TAB PO SCH (09:00)
[2017-09-15] MEDS: MUPIROCIN 2% OINT 22 GM TUBE TOP SCH ×3 (09:00→20:55)
[2017-09-15] MEDS ORDERED: LISINOPRIL 20 MG TAB PO SCH (09:00)
[2017-09-15] MEDS ORDERED: hydroCHLOROthiazide 12.5 MG CAPSULE PO SCH (09:00)
[2017-09-15] MEDS ORDERED: amLODIPine 5 MG TAB PO SCH (09:00)
[2017-09-15 10:00] VITALS: BP 174/81
[2017-09-15] MEDS ORDERED: NALOXONE INJ 0.4 MG/1 ML VIAL (J2310) As Ordered ONE (15:20)
[2017-09-15] MEDS ORDERED: NALOXONE INJ 0.4 MG/1 ML VIAL (J2310) IV STA (15:20)
[2017-09-15 15:33] LABS: BASO % 0.1 % (0.0-1.0); EOS % 0.3 % (0.0-3.0); IMMATURE GRANULOCYTE % 0.5 % (0-0); LYMPH # 2.1 10^3/uL (1.5-6.5); MEAN CORPUSCULAR HEMOGLOBIN 25.6 pg (27.0-33.0); MEAN CORPUSCULAR VOLUME 75.4 fl (80.0-96.0); MONO % 8.8 % (0.0-5.0); NEUTROPHILS # 7.9 10^3/uL (1.8-7.7); NEUTROPHILS % 71.3 % (36.0-66.0); PLATELET COUNT, AUTOMATED 526 10^3/uL (150-450); RED CELL DISTRIBUTION WIDTH 12.6 % (11.5-14.5)
--- NOTE | 2017-09-15 15:37 | IPNPDOC ---
Text Note Date of Service The patient was seen on 09/15/17. NOTE Rapid response was called around 3pm. Resident doctor and Dr. Palacios as well as Dr. Donohue presented to the room immediately. Patient was found on the floor unconscious and confused. She was very weak on examination, tachycardiac and elevated BP. She was noted to received morphin this am and just visit by her family not long ago. Stat CBC, CMP, comprehensive drug screen and urine tox screen was ordered. Narcan 0.2 mg IV was ordered stat, after it was given patient immediately was more awake and alert, and complaint of severe pain. Will DC morphin right now and control her pain with Toradol. Patient did have a CT of abdomen and pelvis didn't show any acute intra abdominal processes. Will continue to monitor her. Patient has been discussed with attending Dr. Palacios. GME ATTESTATION My preceptor for this patient encounter was physically present in the building during the encounter and was fully available. As needed, all aspects of the patient interview, examination, medical decision making process, and medical care plan development were reviewed and approved by the preceptor. Preceptor is aware and concurs with the plan as stated in the body of this note and will attest to such by his/her cosignature. VS,Fishbone, I+O VS, Fishbone, I+O Laboratory Tests 09/14/17 22:47 Red Blood Count 4.37, Mean Corpuscular Volume 76.0 L, Mean Corpuscular Hemoglobin 26.1 L, Mean Corpuscular Hemoglobin Concent 34.3, Red Cell Distribution Width 12.6, Neutrophils (%) (Auto) 81.6 H, Lymphocytes (%) (Auto) 11.2 L, Monocytes (%) (Auto) 5.9 H, Eosinophils (%) (Auto) 0.3, Basophils (%) ( Auto) 0.3, Neutrophils # (Auto) 8.9 H, Lymphocytes # (Auto) 1.2 L, Monocytes # ( Auto) 0.6, Eosinophils # (Auto) 0.0, Basophils # (Auto) 0.0 09/15/17 01:11 Calcium Level 8.5 Vital Signs Date Time Temp Pulse Resp B/P (MAP) Pulse Ox O2 Delivery O2 Flow Rate FiO2 09/15/17 12:20 18 11/5/17 12:00 138/82 09/15/17 08:03 97.8 106 96 Room Air LINDA ABRAMS DO Sep 15, 2017 15:37
[2017-09-15 15:56] LABS: ALBUMIN 2.1 GM/DL (3.2-5.2); ALBUMIN/GLOBULIN RATIO 0.54 (1.00-1.93); ALKALINE PHOSPHATASE 135 U/L (45-117); ALT/SGPT 16 U/L (12-78); ANION GAP 8 MEQ/L (8-16); AST/SGOT 9 U/L (7-37); BILIRUBIN,TOTAL 0.2 MG/DL (0.2-1.0); BLOOD UREA NITROGEN 16 MG/DL (7-18); CALCIUM LEVEL 8.1 MG/DL (8.5-10.1); CARBON DIOXIDE LEVEL 27 MEQ/L (21-32); CHLORIDE LEVEL 95 MEQ/L (98-107); CREATININE FOR GFR 0.76 MG/DL (0.55-1.02); GLOMERULAR FILTRATION RATE > 60.0 (>60); GLUCOSE, FASTING 117 MG/DL (70-105); POTASSIUM SERUM 3.1 MEQ/L (3.5-5.1); SODIUM LEVEL 130 MEQ/L (136-145)
[2017-09-15] MEDS ORDERED: LIDOCAINE 5% (LIDODERM) PATCH TD SCH (16:00)
[2017-09-15] MEDS ORDERED: GABAPENTIN 300 MG CAP PO SCH (17:00)
[2017-09-15] MEDS: KETOROLAC 30 MG/ML VIAL (J1885) IV SCH (17:12)
[2017-09-15] MEDS ORDERED: POTASSIUM CHLORIDE 10 MEQ SR TABLET PO ONE (18:00)
[2017-09-15] MEDS ORDERED: AMITRIPTYLINE 25 MG TAB PO SCH (21:00)
[2017-09-15] MEDS ORDERED: GABAPENTIN 400 MG CAP PO SCH (21:00)
[2017-09-15] MEDS ORDERED: **NOTE PATIENT COMMENT** MISC XX SCH (21:00)
[2017-09-15] MEDS ORDERED: CitaloPRAM (CeleXA) 10 MG TABLET PO SCH (21:00)
[2017-09-15] MEDS ORDERED: LEVEMIR (INSULIN DETEMIR) 1 UNITS/0.01ML SC SCH ×2 (21:00)
[2017-09-15] MEDS ORDERED: HumaLOG INSULIN (NovoLOG) PER UNIT SC SCH (21:00)
[2017-09-15] MEDS ORDERED: ATORVASTATIN 20 MG TAB PO SCH (21:00)
[2017-09-15 22:00] VITALS: BP 164/84
[2017-09-16] MEDS: KETOROLAC 30 MG/ML VIAL (J1885) IV SCH (00:59)
[2017-09-16] MEDS: METOCLOPRAMIDE INJ 10MG/2ML VIAL (J2765) IV SCH ×2 (00:59→06:10)
[2017-09-16 06:00] VITALS: BP 113/67
[2017-09-16] MEDS: NITROGLYCERIN 2% OINT 1 GM *U/D* PKT TOP SCH ×2 (06:00)
[2017-09-16] MEDS: HEPARIN SOD (PORCINE) 5000 UNITS/ML VIAL SC SCH (06:11)
--- NOTE | 2017-09-16 06:12 | HPE ---
DATE OF ADMISSION: 09/15/2017 PRIMARY CARE PHYSICIAN: Dr. Wesley Cheng HOSPITALIST: Dr. Wesley Sam CHIEF COMPLAINT: Abdominal pain, nausea, vomiting. HISTORY OF THE PRESENT ILLNESS: This is a 27-year-old female with a history of type 2 diabetes, hyperlipidemia, right below-knee amputation (BKA) from osteomyelitis, medical noncompliance, A1c of 14, depression, anxiety, dyslipidemia, presents to the emergency room with a 2-day history of intractable nausea, vomiting and abdominal pain, which is diffuse. She otherwise denies any fever or chills, diarrhea. She describes the pain in the epigastric area without any radiation, with 5-6 episodes of nausea and vomiting at home with food emesis, nonprojectile, nonbilious. The patient denies any cough productive of sputum. She also denies any urgency, frequency, chills or flank pain. She has chronic back pain, which is unchanged from prior. In the emergency room (ER), she was found to have uncontrolled glucose of 383 to 388 with no anion gap, as well as pseudohyponatremia, sodium level of 127 to 129. She has no fever, no white count. CT abdomen and pelvis shows urine retention and air densities in the bladder, small amount of free pelvic fluid. Urinalysis shows turbid appearance, positive leukocyte esterase, too numerous to count bacteria and WBCs. The patient has had a prior history of urinary tract infections (UTIs) with Escherichia (E) coli and Klebsiella in the past, which is pansensitive. Hospitalist service was called for admission for uncontrolled glucose, intractable nausea, vomiting. PAST MEDICAL HISTORY: Diabetes. Dyslipidemia. Right BKA due to osteomyelitis. Sepsis from osteomyelitis. Depression. Anxiety. Hyperlipidemia. PAST SURGICAL HISTORY: Appendectomy. Right-sided BKA. SOCIAL HISTORY: Lives with boyfriend. No smoking, alcohol or recreational drug use. FAMILY HISTORY: Noncontributory. ALLERGIES: To FLAGYL, OXYCODONE causing hives but takes morphine without issues. HOME MEDICATIONS: - Cipro 500 mg twice a day - hydrochlorothiazide 12.5 mg daily - lisinopril 20 mg daily - metformin 1 gram twice a day - Januvia 50 mg daily - Toujeo 60 units nightly REVIEW OF SYSTEMS: Per history of the present illness. Twelve point system otherwise negative. PHYSICAL EXAMINATION: Temperature 98.3, pulse 87, respiratory rate 20, blood pressure 158/72, 100% on room air. Generally, the patient is awake, alert, oriented times three, answering questions appropriately, in no respiratory distress, speaks in full sentences. Pupils are round and reactive to light and accommodation. Extraocular muscles are intact. No cervical lymphadenopathy, thyromegaly or pharyngeal erythema. Lungs are clear to auscultation. No wheezing, rales, or rhonchi. Heart: S1, S2, sinus rhythm. Abdomen: Soft, tender in the epigastric region. No rebound, guarding. Positive bowel sounds times four quadrants. Extremities: The patient has a right BKA with an open lesion, nonpurulent, nontender. No pitting edema. White count 10.9, hemoglobin 11, hematocrit 33, platelet count 512. Sodium 129, potassium 3.5, chloride 94, bicarbonate 26, BUN 16, creatinine 1.05, glucose of 388. ASSESSMENT AND PLAN: This is a 27-year-old female with a prior history of diabetes, medical noncompliance, A1c of 14, hypertension, dyslipidemia, right below-knee amputation due to osteomyelitis, presents to the emergency room with intractable nausea and vomiting, recent history of urinary tract infection. The patient will be admitted for observation for the following issues and assigned to Dr. Wesley Sam: 1. Hyperglycemia. Most likely secondary to UTI and noncompliance. Patient is actively vomiting; therefore, she will be admitted, given intravenous fluids, intravenous Zofran as needed. Continue treatment for UTI. The patient has been given Levemir insulin this morning, continued on sliding scale. May resume patient's Toujeo once she is tolerating oral diet. 2. Intractable nausea and vomiting. CT abdomen and pelvis is unremarkable. No signs of pyelonephritis. Will continue the patient's outpatient Cipro, E coli was pansensitive from previous urine culture. 3. Urinary tract infection (UTI). No signs of pyelonephritis. No fever. The patient will be continued on outpatient Cipro. Recheck UA, urine culture and sensitivity as outpatient to check for clearance. The patient is known to be noncompliant with her medications. 4. Hypertension. Current blood pressure is 158/72. Hold off on today's lisinopril. May resume in the morning. The patient's blood pressure is most likely elevated due to pain; therefore, will treat the pain. Once the patient is taking a persistent oral diet, may resume the angiotensin-converting enzyme (JYOTI) inhibitor, due to risk of renal failure. 5. History of right below-knee amputation due to osteomyelitis with an open lesion. Consult wound care. 6. Deep vein thrombosis (DVT) prophylaxis with subcu heparin.
--- NOTE | 2017-09-16 06:16 | REP ---
AP PORTABLE CHEST: 09/24/2017. Clinical history: DKA. Comparison: 09/12/2017, 07/21/2017. Findings: Lordotic AP portable chest shows the lung mancia marginally adequate in the degree of inflation. The lordotic projection limits evaluation of the posterior and lower lung zones. No dense consolidation or pleural effusion. No widening of the mediastinum, abnormalities of the airway or aorta. Bones intact. Impression: 1. Lordotic AP portable chest limits evaluation but no gross acute finding. Signed by Mateo Anna MD 09/15/2017 07:18 P
[2017-09-16 07:18] LABS: BASO % 0.5 % (0.0-1.0); EOS # 0.2 10^3/uL (0.0-0.50); EOS % 2.5 % (0.0-3.0); IMMATURE GRANULOCYTE % 1.5 % (0-0); LYMPH # 2.6 10^3/uL (1.5-6.5); LYMPH % 33.5 % (24.0-44.0); MEAN CORPUSCULAR HGB CONC 34.6 g/dl (32.0-36.5); MEAN CORPUSCULAR VOLUME 75.2 fl (80.0-96.0); MONO # 0.8 10^3/uL (0.0-0.8); MONO % 10.1 % (0.0-5.0); NEUTROPHILS # 4.1 10^3/uL (1.8-7.7); NEUTROPHILS % 51.9 % (36.0-66.0); PLATELET COUNT, AUTOMATED 477 10^3/uL (150-450); RED CELL DISTRIBUTION WIDTH 12.6 % (11.5-14.5); WHITE BLOOD COUNT 7.9 10^3/uL (4.0-10.0)
[2017-09-16 07:36] LABS: ANION GAP 7 MEQ/L (8-16); BLOOD UREA NITROGEN 18 MG/DL (7-18); CARBON DIOXIDE LEVEL 23 MEQ/L (21-32); CHLORIDE LEVEL 98 MEQ/L (98-107); CREATININE FOR GFR 0.87 MG/DL (0.55-1.02); GLOMERULAR FILTRATION RATE > 60.0 (>60); GLUCOSE, FASTING 193 MG/DL (70-105); MAGNESIUM LEVEL 2.3 MG/DL (1.8-2.4); POTASSIUM SERUM 3.9 MEQ/L (3.5-5.1); SODIUM LEVEL 128 MEQ/L (136-145)
[2017-09-16] MEDS ORDERED: cefTRIAXone SOD 1 GM in D5W 50 ML IV SCH (09:00)
--- NOTE | 2017-09-16 10:19 | DS.PDOC ---
Discharge Summary General Date of Admission Sep 15, 2017 at 05:21 Date of Discharge 09/16/17 Discharge Summary DISCHARGE DIAGNOSES: 1. UTI. 2. Non-compliance. 3. IDDM - poorly controlled. 4. Suspicion for illicit drug use 5. Narcotic overdose 6. Nausea/vomiting 7. Dyslipidemia 8. Anxiety/depression COMPLICATIONS/CHIEF COMPLAINT: Hyperglycemia. HISTORY OF PRESENT ILLNESS: 27 yo female admitted for nausea/vomiting found to have UTI. HOSPITAL COURSE: Patient admitted for symptom control and IV fluids for nausea/ vomiting. Found to have UTI, started on anti-microbial therapy. Hospital stay significant for Rapid Assessment after patient found on floor unresponsive. Patient responded to administration of Narcan, vital were stable. Some suspicion for illicit drug use, as incident occurred shortly after visit from her friend. Following day patient decided to leave against medical advice. Risks of leaving AMA were explained at length, patient voiced full understanding. DISCHARGE MEDICATIONS: Please see below. ALLERGIES: Please see below. LABORATORY DATA: Please see below. PROGNOSIS: Guarded - patient left AMA, history of non-compliance DISPOSITION: 07 Against Medical Advice. TIME SPENT ON DISCHARGE: Greater than <30 minutes. Vital Signs/I&Os Vital Signs Date Time Temp Pulse Resp B/P (MAP) Pulse Ox O2 Delivery O2 Flow Rate FiO2 09/16/17 06:00 113/67 09/16/17 06:00 98.1 93 18 96 Room Air Laboratory Data Labs 24H Laboratory Tests 2 09/15/17 11:13: Bedside Glucose (Misc Panel) 184H 09/15/17 15:07: Bedside Glucose (Misc Panel) 129H 09/15/17 15:20: Immature Granulocyte % (Auto) 0.5H, White Blood Count 11.0H, Red Blood Count 3.98L, Hemoglobin 10.2L, Hematocrit 30.0L, Mean Corpuscular Volume 75.4L, Mean Corpuscular Hemoglobin 25.6L, Mean Corpuscular Hemoglobin Concent 34.0, Red Cell Distribution Width 12.6, Platelet Count 526H, Neutrophils (%) (Auto) 71.3H , Lymphocytes (%) (Auto) 19.0L, Monocytes (%) (Auto) 8.8H, Eosinophils (%) (Auto ) 0.3, Basophils (%) (Auto) 0.1, Neutrophils # (Auto) 7.9H, Lymphocytes # (Auto ) 2.1, Monocytes # (Auto) 1.0H, Eosinophils # (Auto) 0.0, Basophils # (Auto) 0.0 , Immature Granulocyte # (Auto) 0.1H, Nucleated Red Blood Cells % (auto) 0.0, Anion Gap 8, Glomerular Filtration Rate > 60.0, Blood Urea Nitrogen 16, Creatinine 0.76, Sodium Level 130L, Potassium Level 3.1L, Chloride Level 95L, Carbon Dioxide Level 27, Calcium Level 8.1L, Aspartate Amino Transf (AST/SGOT) 9 , Alanine Aminotransferase (ALT/SGPT) 16, Alkaline Phosphatase 135H, Total Bilirubin 0.2, Total Protein 6.0L, Albumin 2.1L, Albumin/Globulin Ratio 0.54L 09/15/17 15:31: Lactic Acid Level 2.2*H 09/15/17 15:32: 09/15/17 17:04: Bedside Glucose (Misc Panel) 98 09/15/17 19:10: Bedside Glucose (Misc Panel) 100 09/15/17 20:57: Bedside Glucose (Misc Panel) 122H 09/16/17 06:59: Immature Granulocyte % (Auto) 1.5H, White Blood Count 7.9, Red Blood Count 4.11 , Hemoglobin 10.7L, Hematocrit 30.9L, Mean Corpuscular Volume 75.2L, Mean Corpuscular Hemoglobin 26.0L, Mean Corpuscular Hemoglobin Concent 34.6, Red Cell Distribution Width 12.6, Platelet Count 477H, Neutrophils (%) (Auto) 51.9, Lymphocytes (%) (Auto) 33.5, Monocytes (%) (Auto) 10.1H, Eosinophils (%) (Auto) 2.5, Basophils (%) (Auto) 0.5, Neutrophils # (Auto) 4.1, Lymphocytes # (Auto) 2.6, Monocytes # (Auto) 0.8, Eosinophils # (Auto) 0.2, Basophils # (Auto) 0.0, Immature Granulocyte # (Auto) 0.1H, Nucleated Red Blood Cells % (auto) 0.3H, Anion Gap 7L, Glomerular Filtration Rate > 60.0, Blood Urea Nitrogen 18, Creatinine 0.87, Sodium Level 128L, Potassium Level 3.9#, Chloride Level 98, Carbon Dioxide Level 23, Calcium Level 8.0L, Magnesium Level 2.3 CBC/BMP Laboratory Tests 09/15/17 15:20 Red Blood Count 3.98 L, Mean Corpuscular Volume 75.4 L, Mean Corpuscular Hemoglobin 25.6 L, Mean Corpuscular Hemoglobin Concent 34.0, Red Cell Distribution Width 12.6, Neutrophils (%) (Auto) 71.3 H, Lymphocytes (%) (Auto) 19.0 L, Monocytes (%) (Auto) 8.8 H, Eosinophils (%) (Auto) 0.3, Basophils (%) ( Auto) 0.1, Neutrophils # (Auto) 7.9 H, Lymphocytes # (Auto) 2.1, Monocytes # ( Auto) 1.0 H, Eosinophils # (Auto) 0.0, Basophils # (Auto) 0.0, Calcium Level 8.1 L, Aspartate Amino Transf (AST/SGOT) 9, Alanine Aminotransferase (ALT/SGPT) 16, Alkaline Phosphatase 135 H, Total Bilirubin 0.2, Total Protein 6.0 L, Albumin 2.1 L 09/16/17 06:59 Red Blood Count 4.11, Mean Corpuscular Volume 75.2 L, Mean Corpuscular Hemoglobin 26.0 L, Mean Corpuscular Hemoglobin Concent 34.6, Red Cell Distribution Width 12.6, Neutrophils (%) (Auto) 51.9, Lymphocytes (%) (Auto) 33.5, Monocytes (%) (Auto) 10.1 H, Eosinophils (%) (Auto) 2.5, Basophils (%) ( Auto) 0.5, Neutrophils # (Auto) 4.1, Lymphocytes # (Auto) 2.6, Monocytes # (Auto ) 0.8, Eosinophils # (Auto) 0.2, Basophils # (Auto) 0.0, Calcium Level 8.0 L FSBS Laboratory Tests Test 09/15/17 11:13 09/15/17 15:07 09/15/17 17:04 09/15/17 19:10 Range/Units Bedside Glucose (Misc Panel) 184 129 98 100 70-105 MG/DL Test 09/15/17 20:57 Range/Units Bedside Glucose (Misc Panel) 122 70-105 MG/DL Microbiology Microbiology 09/14/17 Blood Culture - Preliminary, Resulted No growth after 24 hours . All specim... 09/14/17 Blood Culture - Preliminary, Resulted No growth after 24 hours . All specim... 09/15/17 Urine Culture, Received Pending Discharge Medications Scheduled (Toujeo Solostar) 300 Unit/Ml Inj, 60 UNIT SC QHS, (Reported) Amitriptyline HCl (Amitriptyline HCl) 25 Mg Tab, 25 MG PO QHS, (Reported) Amlodipine Besylate (Amlodipine Besylate) 10 Mg Tab, 10 MG PO DAILY, (Reported) Atorvastatin Calcium (Atorvastatin Calcium) 20 Mg Tab, 20 MG PO QHS, (Reported) Ciprofloxacin HCl (Cipro) 500 Mg Tab, 500 MG PO BID, (Reported) HAS NOT STARTED/PICKED UP TO END 09/24/17 Citalopram Hydrobromide (Celexa) 10 Mg Tab, 10 MG PO QHS, (Reported) Gabapentin (Gabapentin) 300 Mg Cap, 300 MG PO QPM, (Reported) TAKES AT 1700 Gabapentin (Gabapentin) 600 Mg Tab, 1,200 MG PO QHS, (Reported) Hydrochlorothiazide (Hydrochlorothiazide) 12.5 Mg Cap, 12.5 MG PO DAILY, ( Reported) Insulin Aspart (Novolog) 100 U/Ml Inj, 30 UNITS SC AC, (Reported) Lisinopril (Lisinopril) 20 Mg Tab, 20 MG PO DAILY, (Reported) Metformin Hydrochloride (Metformin HCl) 500 Mg Tab, 1,000 MG PO BID, (Reported) Sitagliptin (Januvia) 50 Mg Tab, 50 MG PO DAILY, (Reported) Scheduled PRN Promethazine HCl (Phenadoz) 25 Mg Sup, 25 MG MI Q6H PRN for NAUSEA, (Reported) Allergies Coded Allergies: Metronidazole (Verified Allergy, Intermediate, SWELLING, 07/21/17) Oxycodone (Verified Allergy, Intermediate, SWELLING, 07/21/17) CARLA GALLEGO MD Sep 16, 2017 10:19
[2017-09-18 14:18] LABS: ACETAMINOPHEN Negative ug/mL (10-30); AMITRIPTYLINE None Detected (Not Estab.); BUTALBITAL None Detected ug/mL (1-10); DESIPRAMINE None Detected (Not Estab.); DIAZEPAM None Detected ug/mL (0.1-0.9); DOXEPIN None Detected (Not Estab.); ETHANOL Negative % (0.000-0.010); NORCHLORDIAZEPOXIDE None Detected ug/mL (0.1-0.6); NORDIAZEPAM None Detected ug/mL (0.1-1.4); NORDOXEPIN None Detected (Not Estab.); NORTRIPTYLINE None Detected ng/mL (50-150); PENTOBARBITAL None Detected ug/mL (1-5); PHENOBARBITAL None Detected ug/mL (15-40); PHENYTOIN None Detected ug/mL (10.0-20.0)
== END 2017-09-16 08:20 | disposition left against medical advice (07) ==
LOC: EDBD 21:27 → M ED 21:27 → M ED INP 21:28 → UNDOADMOB 09-15 05:21 → M ED INP 09-15 05:21 → M MS5PR 09-15 09:45 → M ED INP 09-15 09:45 → UNDODISOB 09-16 08:20
PROVIDERS: ADMIT General Practice; ATTEND Internal Medicine
DX: N39.0 Urinary tract infection, site not specified (principal); E11.65 Type 2 diabetes mellitus with hyperglycemia; Z53.21 Procedure and treatment not carried out due to patient leaving prior to being seen by health care provider; Z91.14 Patient's other noncompliance with medication regimen; F11.10 Opioid abuse, uncomplicated; E78.5 Hyperlipidemia, unspecified; R11.2 Nausea with vomiting, unspecified; I10 Essential (primary) hypertension; F41.9 Anxiety disorder, unspecified; F32.9 Major depressive disorder, single episode, unspecified; Z79.899 Other long term (current) drug therapy
CPT/HCPCS: 36415; 71010; 74177; 80053; 80076; 80307; 80320; 80346; 81001; 82010; 82436; 82550; 82553; 82570; 82803; 83036; 83605; 83690; 83735; 83930; 83935; 84100; 84133; 84156; 84300; 84600; 84703; 85025; 87040; 87086; 93000; 93041; 96361; 96372; 96374; 96375; 96376; 99285; J0696; J1885; J2310; J2405; J2765; Q9967

== ENCOUNTER 2017-10-04 11:27 | Inpatient (IN) | payer OTHER ==
[~2017-10-04] VITALS: Ht 154.9 cm; Wt 86.7 kg
[2017-10-04] MEDS: LISINOPRIL 20 MG TAB PO SCH (09:00)
[2017-10-04] MEDS: amLODIPine 5 MG TAB PO SCH (09:00)
[2017-10-04] MEDS ORDERED: NS 1,000 ML IV ONE (11:45)
[2017-10-04] MEDS ORDERED: PROMETHAZINE INJ 25 MG/ML VIAL (J2550) IV ONE (11:45)
[2017-10-04] MEDS ORDERED: ONDANSETRON 4 MG ORAL DISINTEGRATING TAB (S0181) PO ONE (13:00)
[2017-10-04 13:40] LABS: BASO % 0.2 % (0.0-1.0); EOS # 0.1 10^3/uL (0.0-0.50); EOS % 1.5 % (0.0-3.0); IMMATURE GRANULOCYTE % 0.7 % (0-0); LYMPH # 0.9 10^3/uL (1.5-6.5); LYMPH % 10.9 % (24.0-44.0); MEAN CORPUSCULAR HEMOGLOBIN 25.8 pg (27.0-33.0); MEAN CORPUSCULAR HGB CONC 33.3 g/dl (32.0-36.5); MEAN CORPUSCULAR VOLUME 77.3 fl (80.0-96.0); MONO # 0.6 10^3/uL (0.0-0.8); MONO % 7.2 % (0.0-5.0); NEUTROPHILS # 6.9 10^3/uL (1.8-7.7); NEUTROPHILS % 79.5 % (36.0-66.0); PLATELET COUNT, AUTOMATED 535 10^3/uL (150-450); RED CELL DISTRIBUTION WIDTH 12.9 % (11.5-14.5); WHITE BLOOD COUNT 8.7 10^3/uL (4.0-10.0)
[2017-10-04] MEDS ORDERED: PROMETHAZINE INJ 25 MG/ML VIAL (J2550) IM ONE (13:45)
[2017-10-04 13:55] LABS: CONTROL LINE HCG INT CTR LINE PRESENT
[2017-10-04 14:04] LABS: ALBUMIN 2.3 GM/DL (3.2-5.2); ALBUMIN/GLOBULIN RATIO 0.52 (1.00-1.93); ALKALINE PHOSPHATASE 153 U/L (45-117); ALT/SGPT 26 U/L (12-78); ANION GAP 9 MEQ/L (8-16); AST/SGOT 18 U/L (7-37); BILIRUBIN,DIRECT 0.1 MG/DL (0.0-0.2); BILIRUBIN,TOTAL 0.2 MG/DL (0.2-1.0); BLOOD UREA NITROGEN 10 MG/DL (7-18); CALCIUM LEVEL 8.5 MG/DL (8.5-10.1); CARBON DIOXIDE LEVEL 25 MEQ/L (21-32); CHLORIDE LEVEL 104 MEQ/L (98-107); CREATININE FOR GFR 0.62 MG/DL (0.55-1.02); GLOMERULAR FILTRATION RATE > 60.0 (>60); GLUCOSE, FASTING 204 MG/DL (70-105); POTASSIUM SERUM 3.5 MEQ/L (3.5-5.1); SODIUM LEVEL 138 MEQ/L (136-145); TOTAL PROTEIN 6.7 GM/DL (6.4-8.2)
[2017-10-04] MEDS: MORPHINE 4 MG/ML 1ML SYRINGE IV PRN ×2 (16:13→17:30)
--- NOTE | 2017-10-04 16:28 | REP ---
Clinical: Pancreatitis. Comparison: 09/15/2017. Findings: Small bilateral pleural effusions with bibasilar atelectasis (left greater than right) is appreciated. A small pericardial effusion is identified. Liver, spleen, pancreas, gallbladder, and bilateral adrenal glands are normal for noncontrast evaluation. No peripancreatic stranding is appreciated or obvious peripancreatic fluid collection/pseudocyst. The kidneys demonstrate perinephric stranding and scattered renovascular calcifications without hydronephrosis or obstructing ureteral calculi. The enteric system is without obstruction or acute inflammatory process. Pelvis demonstrates markedly distended bladder of uncertain etiology. The uterus/adnexa appear normal. Trace pelvic free fluid is nonspecific. Mild atherosclerotic changes of the aorta noted without aneurysm. Musculoskeletal structures are intact. Impression: 1. Small bilateral pleural effusions with moderate bibasilar atelectasis (left greater than right). 2. Pancreas is normal in appearance by noncontrast evaluation and there is no peripancreatic stranding or adjacent fluid collection/pseudocyst. 3. Bilateral perinephric stranding along with suspected small renovascular calcifications is nonspecific but warrants urinalysis for correlation and further evaluation. 4. Markedly distended urinary bladder of uncertain etiology. Signed by Louis Lora MD 10/04/2017 04:19 P
[2017-10-04] MEDS ORDERED: GLUCAGON FOR INJ 1 MG VIAL (J1610) SC PRN (17:00)
[2017-10-04] MEDS ORDERED: DEXTROSE 50% 50 ML SYRINGE IV PRN (17:00)
[2017-10-04] MEDS ORDERED: GLUCOSE 4 GM CHEW TABLET PO PRN (17:00)
[2017-10-04] MEDS ORDERED: ONDANSETRON 4MG/2ML VIAL (J2405) IV PRN (17:00)
[2017-10-04] MEDS ORDERED: NS 1,000 ML IV SCH (17:30)
[2017-10-04] MEDS ORDERED: HumaLOG INSULIN (NovoLOG) PER UNIT SC SCH (17:30)
[2017-10-04 17:51] LABS: RETIC HEMOGLOBIN EQUIVALENT 27.6 pg (24-36)
[2017-10-04 17:54] LABS: REASON FOR REVIEW COMPREHENSIVE REVIEW
[2017-10-04 17:55] LABS: CHOLESTEROL LEVEL 206 MG/DL (<200); FERRITIN 19 NG/ML (8-252); PERCENT SATURATION 8.8 % (13.2-45.0); TOTAL IRON BINDING CAPACITY 342 UG/DL (250-450); TRIGLYCERIDES LEVEL 196 MG/DL (<150)
[2017-10-04] MEDS: HumaLOG INSULIN (NovoLOG) PER UNIT SC SCH (18:30)
[2017-10-04] MEDS: hydrALAZINE INJ 20 MG/ML VIAL IV SCH (18:31)
[2017-10-04] MEDS: METOCLOPRAMIDE INJ 10MG/2ML VIAL (J2765) IV SCH (18:32)
[2017-10-04] MEDS: KCL 20MEQ in NS 1000ML 1,000 ML IV SCH (18:38)
[2017-10-04] MEDS: MORPHINE 2 MG/ML 1ML SYRINGE IV PRN (19:38)
[2017-10-04 20:30] VITALS: BP 143/79
[2017-10-04] MEDS ORDERED: GABAPENTIN 400 MG CAP PO SCH (21:00)
[2017-10-04] MEDS ORDERED: LEVEMIR (INSULIN DETEMIR) 1 UNITS/0.01ML SC SCH (21:00)
[2017-10-04] MEDS ORDERED: AMITRIPTYLINE 25 MG TAB PO SCH (21:00)
[2017-10-04] MEDS ORDERED: CitaloPRAM (CeleXA) 10 MG TABLET PO SCH (21:00)
[2017-10-04] MEDS ORDERED: PANTOPRAZOLE 40MG INJ (PROTONIX) (C9113) IV SCH (21:00)
[2017-10-04 23:59] VITALS: BP 134/81
[2017-10-05] MEDS: HumaLOG INSULIN (NovoLOG) PER UNIT SC SCH ×3 (00:49→13:03)
[2017-10-05] MEDS: METOCLOPRAMIDE INJ 10MG/2ML VIAL (J2765) IV SCH ×3 (00:51→12:00)
[2017-10-05] MEDS: KCL 20MEQ in NS 1000ML 1,000 ML IV SCH (02:25)
[2017-10-05] MEDS: MORPHINE 2 MG/ML 1ML SYRINGE IV PRN (03:25)
[2017-10-05 04:00] VITALS: BP 144/87
[2017-10-05 05:50] LABS: BASO % 0.3 % (0.0-1.0); EOS # 0.2 10^3/uL (0.0-0.50); EOS % 2.3 % (0.0-3.0); IMMATURE GRANULOCYTE % 0.5 % (0-0); LYMPH # 1.9 10^3/uL (1.5-6.5); LYMPH % 24.7 % (24.0-44.0); MEAN CORPUSCULAR HEMOGLOBIN 25.7 pg (27.0-33.0); MEAN CORPUSCULAR HGB CONC 32.1 g/dl (32.0-36.5); MEAN CORPUSCULAR VOLUME 80.2 fl (80.0-96.0); MONO % 12.9 % (0.0-5.0); NEUTROPHILS # 4.6 10^3/uL (1.8-7.7); NEUTROPHILS % 59.3 % (36.0-66.0); PLATELET COUNT, AUTOMATED 529 10^3/uL (150-450); WHITE BLOOD COUNT 7.7 10^3/uL (4.0-10.0)
[2017-10-05] MEDS: hydrALAZINE INJ 20 MG/ML VIAL IV SCH ×2 (06:00)
[2017-10-05 06:13] LABS: ALBUMIN 1.9 GM/DL (3.2-5.2); ALBUMIN/GLOBULIN RATIO 0.66 (1.00-1.93); ALKALINE PHOSPHATASE 134 U/L (45-117); ALT/SGPT 24 U/L (12-78); ANION GAP 9 MEQ/L (8-16); AST/SGOT 10 U/L (7-37); BILIRUBIN,TOTAL 0.1 MG/DL (0.2-1.0); BLOOD UREA NITROGEN 14 MG/DL (7-18); CALCIUM LEVEL 7.6 MG/DL (8.5-10.1); CARBON DIOXIDE LEVEL 23 MEQ/L (21-32); CHLORIDE LEVEL 109 MEQ/L (98-107); CREATININE FOR GFR 0.76 MG/DL (0.55-1.02); GLOMERULAR FILTRATION RATE > 60.0 (>60); GLUCOSE, FASTING 76 MG/DL (70-105); MAGNESIUM LEVEL 1.9 MG/DL (1.8-2.4); POTASSIUM SERUM 3.9 MEQ/L (3.5-5.1); SODIUM LEVEL 141 MEQ/L (136-145); TOTAL PROTEIN 4.8 GM/DL (6.4-8.2)
[2017-10-05 07:52] VITALS: BP 135/97
[2017-10-05] MEDS: amLODIPine 5 MG TAB PO SCH (07:52)
[2017-10-05] MEDS: LISINOPRIL 20 MG TAB PO SCH (07:52)
[2017-10-05 08:00] VITALS: BP 135/97
[2017-10-05] MEDS ORDERED: FUROSEMIDE 40 MG/4 ML VIAL (J1940) IV ONE (08:15)
--- NOTE | 2017-10-05 08:29 | IPNPDOC ---
Subjective Date Seen The patient was seen on 10/05/17. Subjective Chief Complaint/HPI The patient is a 27-year-old female admitted with a reason for visit of Pancreatitis. Events since last encounter No complaints this morning, abdominal pain and nausea and vomiting resolved. says feels hungry , no fever or chills, no chest pain or sob , does complain of some hand swelling both sides. Objective Physical Examination General Exam: Positive: Alert, Cooperative, No Acute Distress Eye Exam: Positive: PERRLA, Conjunctiva & lids normal, EOMI, Negative: Sclera icteric ENT Exam: Positive: Atraumatic, Mucous membr. moist/pink, Pharynx Normal Neck Exam: Positive: Supple, Negative: JVD, thyromegaly Chest Exam: Positive: Clear to auscultation, Normal air movement Heart Exam: Positive: Rate Normal, Regular Rhythm, Normal S1, Normal S2, Negative: Murmurs, Rubs Telemetry: Positive: No significant arrhythmia Abdomen Exam: Positive: Normal bowel sounds, Soft, Negative: Tenderness, Hepatospenomegaly Extremity Exam: Positive: Normal pulses, Other (right below knee amputation), Negative: Clubbing, Cyanosis, Edema Assessment /Plan Problems (1) Diabetic gastroparesis Status: Chronic Problem Text: with acute flare of symptoms after Thanksgiving now better will stop ivf , advance diet. elevated lipase possibly for duodenal and gastric issues , no signs of pancreatitis in the CT abdomen . (2) Uncontrolled type 1 diabetes mellitus with hyperglycemia Status: Chronic Problem Text: a1c is 13.8 will continue with insulin (3) S/P BKA (below knee amputation) unilateral Status: Chronic Problem Text: right BKA for osteomyelitis and gangrene in nov 2016 (4) Anxiety and depression Status: Chronic (5) Diabetic neuropathy Status: Chronic (6) Diabetic nephropathy Status: Chronic Problem Text: has 3+ proteinuria , with low albumin in the blood. edematous now will give iv lasix. Plan/VTE VTE Prophylaxis Ordered?: Yes Disposition patient left AMA. VS, I&O, 24H, Fishbone Vital Signs/I&O Vital Signs Date Time Temp Pulse Resp B/P (MAP) Pulse Ox O2 Delivery O2 Flow Rate FiO2 10/05/17 04:00 99.0 98 18 144/87 (106) 92 Room Air Laboratory Data 24H LABS Laboratory Tests 2 10/04/17 13:12: 10/04/17 13:27: Immature Granulocyte % (Auto) 0.7H, White Blood Count 8.7, Red Blood Count 3.96L , Hemoglobin 10.2L, Hematocrit 30.6L, Mean Corpuscular Volume 77.3L, Mean Corpuscular Hemoglobin 25.8L, Mean Corpuscular Hemoglobin Concent 33.3, Red Cell Distribution Width 12.9, Platelet Count 535H, Neutrophils (%) (Auto) 79.5H , Lymphocytes (%) (Auto) 10.9L, Monocytes (%) (Auto) 7.2H, Eosinophils (%) (Auto ) 1.5, Basophils (%) (Auto) 0.2, Neutrophils # (Auto) 6.9, Lymphocytes # (Auto) 0.9L, Monocytes # (Auto) 0.6, Eosinophils # (Auto) 0.1, Basophils # (Auto) 0.0, Immature Granulocyte # (Auto) 0.1H, Reticulocyte # (auto) 80.8H, Nucleated Red Blood Cells % (auto) 0.0, Differential Slide Review Report, Differential Pathologist's Review COMPREHENSIVE REVIEW, Peripheral Blood Smear Path Consult PERIPHERAL SMEAR, Percent Reticulocyte Count 2.0H, Reticulocyte Hemoglobin Equivalent 27.6, Anion Gap 9, Glomerular Filtration Rate > 60.0, Estimated Mean Plasma Glucose 349H, Hemoglobin A1c 13.8, Calcium Level 8.5, Iron Level 30L, Total Iron Binding Capacity 342, Transferrin % Saturation 8.8L, Ferritin 19, Aspartate Amino Transf (AST/SGOT) 18, Alanine Aminotransferase (ALT/SGPT) 26, Alkaline Phosphatase 153H, Total Bilirubin 0.2, Direct Bilirubin 0.1, Total Protein 6.7, Albumin 2.3L, Albumin/Globulin Ratio 0.52L, Triglycerides Level 196H, Total Cholesterol 206H, LDL Cholesterol 110.8H, Non-HDL Cholesterol (LDL + VLDL) 150, Total HDL Cholesterol 56, Cholesterol/HDL Ratio 3.678, Lipase 729H , Human Chorionic Gonadotropin, Qual NEGATIVE 10/04/17 18:11: Bedside Glucose (Misc Panel) 199H 10/04/17 21:41: Bedside Glucose (Misc Panel) 164H 10/05/17 00:18: Bedside Glucose (Misc Panel) 138H 10/05/17 05:27: Immature Granulocyte % (Auto) 0.5H, White Blood Count 7.7, Red Blood Count 3.34L , Hemoglobin 8.6L, Hematocrit 26.8L, Mean Corpuscular Volume 80.2, Mean Corpuscular Hemoglobin 25.7L, Mean Corpuscular Hemoglobin Concent 32.1, Red Cell Distribution Width 13.0, Platelet Count 529H, Neutrophils (%) (Auto) 59.3, Lymphocytes (%) (Auto) 24.7, Monocytes (%) (Auto) 12.9H, Eosinophils (%) (Auto) 2.3, Basophils (%) (Auto) 0.3, Neutrophils # (Auto) 4.6, Lymphocytes # (Auto) 1.9, Monocytes # (Auto) 1.0H, Eosinophils # (Auto) 0.2, Basophils # (Auto) 0.0, Immature Granulocyte # (Auto) 0.0, Nucleated Red Blood Cells % (auto) 0.0, Anion Gap 9, Glomerular Filtration Rate > 60.0, Blood Urea Nitrogen 14, Creatinine 0.76, Sodium Level 141, Potassium Level 3.9, Chloride Level 109H, Carbon Dioxide Level 23, Calcium Level 7.6L, Aspartate Amino Transf (AST/SGOT) 10, Alanine Aminotransferase (ALT/SGPT) 24, Alkaline Phosphatase 134H, Total Bilirubin 0.1L, Total Protein 4.8#L, Albumin 1.9L, Magnesium Level 1.9, Albumin/ Globulin Ratio 0.66L, Lipase 414H 10/05/17 05:39: Bedside Glucose (Misc Panel) 83 CBC/BMP Laboratory Tests 10/04/17 13:27 Red Blood Count 3.96 L, Mean Corpuscular Volume 77.3 L, Mean Corpuscular Hemoglobin 25.8 L, Mean Corpuscular Hemoglobin Concent 33.3, Red Cell Distribution Width 12.9, Neutrophils (%) (Auto) 79.5 H, Lymphocytes (%) (Auto) 10.9 L, Monocytes (%) (Auto) 7.2 H, Eosinophils (%) (Auto) 1.5, Basophils (%) ( Auto) 0.2, Neutrophils # (Auto) 6.9, Lymphocytes # (Auto) 0.9 L, Monocytes # ( Auto) 0.6, Eosinophils # (Auto) 0.1, Basophils # (Auto) 0.0 10/05/17 05:27 Red Blood Count 3.34 L, Mean Corpuscular Volume 80.2, Mean Corpuscular Hemoglobin 25.7 L, Mean Corpuscular Hemoglobin Concent 32.1, Red Cell Distribution Width 13.0, Neutrophils (%) (Auto) 59.3, Lymphocytes (%) (Auto) 24.7, Monocytes (%) (Auto) 12.9 H, Eosinophils (%) (Auto) 2.3, Basophils (%) ( Auto) 0.3, Neutrophils # (Auto) 4.6, Lymphocytes # (Auto) 1.9, Monocytes # (Auto ) 1.0 H, Eosinophils # (Auto) 0.2, Basophils # (Auto) 0.0, Calcium Level 7.6 L, Aspartate Amino Transf (AST/SGOT) 10, Alanine Aminotransferase (ALT/SGPT) 24, Alkaline Phosphatase 134 H, Total Bilirubin 0.1 L, Total Protein 4.8 #L, Albumin 1.9 L MARIELY FRANCOIS MD Oct 05, 2017 06:25
[2017-10-05] MEDS ORDERED: FERROUS GLUCONATE 324 MG TAB PO SCH (09:00)
[2017-10-05] MEDS ORDERED: ASCORBIC ACID 500 MG TAB PO SCH (09:00)
[2017-10-05] MEDS ORDERED: BISACODYL 5 MG TAB PO SCH (09:00)
[2017-10-05] MEDS ORDERED: ENOXAPARIN 40 MG/0.4 ML SYRINGE (J1650) SC SCH (09:00)
[2017-10-05] MEDS ORDERED: SENOKOT S TAB PO SCH (09:00)
--- NOTE | 2017-10-05 10:17 | REP ---
Clinical: Urinary retention. Technique: Real time mederos scale and color ultrasound examination of the bladder using curved array transducer. Findings: No significant bladder wall thickening or mass lesion is identified. Bilateral ureteral jets are appreciated. Prevoid bladder filled to 1136 ml without the patient feeling fullness or distension. Postvoid bladder measured 197 ml and postvoid residual equals 17%. Impression: 1. No obvious anatomical abnormality to the bladder. 2. Markedly distended bladder without the patient's awareness with a moderate postvoid residual volume appreciated. Signed by Louis Lora MD 10/05/2017 10:09 A
[2017-10-05] MEDS ORDERED: GABAPENTIN 300 MG CAP PO SCH (17:00)
[2017-10-05] MEDS ORDERED: NYSTATIN 100,000 UNITS/GM TOPICAL PWD 15 GM TOP SCH (21:00)
--- NOTE | 2017-10-09 05:49 | DSES ---
DATE OF ADMISSION: 10/04/2017 DATE OF DISCHARGE: 10/05/2017 DISPOSITION: The patient signed out AGAINST MEDICAL ADVICE. DISCHARGE DIAGNOSES: 1. Diabetic gastroparesis. 2. Type 1 diabetes mellitus uncontrolled. 3. Right below-knee amputation due to osteomyelitis and sepsis. 4. Dyslipidemia. 5. Anxiety and depression. 6. Chronic narcotic use. 7. Diabetic neuropathy. 8. Diabetic nephropathy. 9. History of noncompliance. 10. Hypertension. 11. Chronic wound of the right stump. 12. Neurogenic bladder. DISCHARGE MEDICATIONS: The patient was instructed to continue home medications. No prescriptions were given. Home medications include: - Toujeo insulin 60 units at bedtime - Januvia 50 mg daily - metformin 1000 mg by mouth twice a day - lisinopril 20 mg by mouth daily - NovoLog 40 units before meals - hydrochlorothiazide 12.5 mg by mouth daily - gabapentin 1200 mg by mouth at bedtime - gabapentin 300 mg at 5 o'clock - Celexa 10 mg at bedtime - atorvastatin 20 mg at bedtime - amlodipine 5 mg daily - amitriptyline 25 mg at bedtime HOSPITAL COURSE: This is a 27-year-old female with type 1 diabetes who presented to the hospital with chief complaint of nausea, vomiting and abdominal pain for three days, worsened the night prior to presentation, and had not been able to keep anything down by mouth. On initial presentation in the emergency room, the patient was noted to have elevated lipase, so was felt to have an acute attack of pancreatis; however, CT scan of the abdomen and pelvis did not show any signs of pancreatic inflammation. The pancreas was normal in appearance. There was no peripancreatic stranding or adjacent fluid collection or pseudocyst, so her lipase was felt to be related to duodenal gastric process and her symptoms were felt to be related to diabetic gastroparesis. CT scan of the abdomen and pelvis also incidentally picked up distended bladder. The patient subsequently underwent ultrasound of the bladder which showed pre-void bladder of 1136 mL without the patient feeling any fullness or distention. Post-void residual was measured at 197 mL, which (please clarify) was 17%, so it was felt that the patient has some degree of neurogenic bladder. The patient's symptoms resolved with intravenous (IV) fluids, pain medications and bowel rest. The patient's diet was advanced and she was able to tolerate full liquid diet. However, I advised her to stay in the hospital one more day to make sure she is able to tolerate soft and regular diet. However, the patient did not want to stay any further in the hospital and decided to leave against medical advice. PHYSICAL EXAMINATION: VITAL SIGNS: Temperature 98, pulse 101, respiratory rate 18, blood pressure 135/97, pulse oximetry 90% in room air. GENERAL: Patient awake, alert, oriented times three, lying down in bed in no acute distress. HEENT: Normocephalic, atraumatic. Moist mucous membranes. Anicteric eyes. CHEST: Clear to auscultation. CARDIOVASCULAR: S1, S2, regular. No rub, murmur or gallop. ABDOMEN: Soft, nontender. Bowel sounds present. EXTREMITIES: Left extremity trace edema. Right extremity has below-knee amputation (BKA). LABORATORY DATA: WBC 7.7, hemoglobin 8.6, platelets 529. Sodium 141, potassium 3.9, chloride 109, bicarbonate 23, BUN 14, creatinine 0.7, glucose 76, A1c 13.8, calcium 7.6, magnesium 1.9. Albumin 1.9. Liver function tests are normal. Lipase 414. Right leg wound showed Corynebacterium species. DISPOSITION: The patient left against medical advice
== END 2017-10-05 15:06 | disposition left against medical advice (07) | DRG 48 ==
LOC: EDBD 11:27 → M ED 11:27 → M ED INP 18:14 → M PCU 20:36 → M MSPAV 10-05 11:00
PROVIDERS: ADMIT Hospitalist; ATTEND Internal Medicine Nephrology
DX: E10.43 Type 1 diabetes mellitus with diabetic autonomic (poly)neuropathy (principal); E10.21 Type 1 diabetes mellitus with diabetic nephropathy; E10.65 Type 1 diabetes mellitus with hyperglycemia; E78.5 Hyperlipidemia, unspecified; F41.9 Anxiety disorder, unspecified; F32.9 Major depressive disorder, single episode, unspecified; Z91.19 Patient's noncompliance with other medical treatment and regimen; I10 Essential (primary) hypertension; Z79.899 Other long term (current) drug therapy; F11.90 Opioid use, unspecified, uncomplicated; Z79.4 Long term (current) use of insulin; Z89.511 Acquired absence of right leg below knee; E10.40 Type 1 diabetes mellitus with diabetic neuropathy, unspecified

== ENCOUNTER 2017-10-13 10:47 | Emergency (ER) | payer OTHER ==
[~2017-10-13] VITALS: Ht 154.9 cm; Wt 90.0 kg
[2017-10-13] MEDS ORDERED: ONDANSETRON 4 MG ORAL DISINTEGRATING TAB (S0181) PO ONE (11:45)
[2017-10-13] MEDS ORDERED: ONDANSETRON 4MG/2ML VIAL (J2405) IV ONE ×2 (11:45→12:15)
[2017-10-13] MEDS ORDERED: NS 1,000 ML IV ONE (12:15)
[2017-10-13] MEDS ORDERED: PANTOPRAZOLE 40MG INJ (PROTONIX) (C9113) IV ONE (12:30)
[2017-10-13] MEDS: MORPHINE 2 MG/ML 1ML SYRINGE IV PRN ×2 (12:33→16:08)
[2017-10-13 13:11] LABS: BASO % 0.4 % (0.0-1.0); IMMATURE GRANULOCYTE % 0.6 % (0-0); LYMPH # 0.8 10^3/uL (1.5-6.5); LYMPH % 7.3 % (24.0-44.0); MEAN CORPUSCULAR HEMOGLOBIN 25.4 pg (27.0-33.0); MEAN CORPUSCULAR HGB CONC 33.2 g/dl (32.0-36.5); MEAN CORPUSCULAR VOLUME 76.5 fl (80.0-96.0); MONO # 0.4 10^3/uL (0.0-0.8); MONO % 3.5 % (0.0-5.0); NEUTROPHILS # 9.7 10^3/uL (1.8-7.7); NEUTROPHILS % 88.2 % (36.0-66.0); PLATELET COUNT, AUTOMATED 722 10^3/uL (150-450); RED CELL DISTRIBUTION WIDTH 12.4 % (11.5-14.5)
[2017-10-13 13:17] LABS: CONTROL LINE HCG INT CTR LINE PRESENT
[2017-10-13 13:25] LABS: ALBUMIN 2.5 GM/DL (3.2-5.2); ALBUMIN/GLOBULIN RATIO 0.53 (1.00-1.93); ALKALINE PHOSPHATASE 120 U/L (45-117); ALT/SGPT 19 U/L (12-78); ANION GAP 9 MEQ/L (8-16); AST/SGOT 10 U/L (7-37); BILIRUBIN,DIRECT < 0.1 MG/DL (0.0-0.2); BILIRUBIN,TOTAL 0.4 MG/DL (0.2-1.0); BLOOD UREA NITROGEN 14 MG/DL (7-18); CARBON DIOXIDE LEVEL 30 MEQ/L (21-32); CHLORIDE LEVEL 95 MEQ/L (98-107); CREATININE FOR GFR 0.87 MG/DL (0.55-1.02); GLOMERULAR FILTRATION RATE > 60.0 (>60); GLUCOSE, FASTING 298 MG/DL (70-105); POTASSIUM SERUM 3.7 MEQ/L (3.5-5.1); SODIUM LEVEL 134 MEQ/L (136-145); TOTAL PROTEIN 7.2 GM/DL (6.4-8.2)
[2017-10-13] MEDS ORDERED: ISOVUE-370 76% 100ML VIAL (Q9967) As Ordered ONE (13:26)
--- NOTE | 2017-10-13 14:14 | REP ---
GALLBLADDER ULTRASOUND: HISTORY: Right upper quadrant pain. COMPARISON: 07/21/2014 The gallbladder is distended. A small amount of sludge is present in the gallbladder. The gallbladder wall measures 2.5 mm. The common bile duct measures 4.3 mm. The liver is normal in echogenicity. The pancreas is not seen due to overlying bowel gas. The right kidney measures 6.6 cm in transverse x 6.5 cm in AP x 13.9 cm in cephalocaudal dimensions. There is no hydronephrosis or mass. IMPRESSION: There is distention of the gallbladder. A small amount of sludge is present. Signed by Wesley Reyes MD 10/13/2017 02:22 P
--- NOTE | 2017-10-13 14:22 | REP ---
CT ABDOMEN AND PELVIS WITH CONTRAST: HISTORY: Right upper quadrant pain. CONTRAST: Isovue-370 100 mL COMPARISON: 10/04/2017 There is mild distention of the gallbladder. The liver is normal in density. The liver is enlarged. Calcifications are present in the kidneys consistent with nephrolithiasis. The pancreas, spleen and adrenal glands are normal in appearance. There is no mass, adenopathy or free fluid. Linear density is present in the right lower lobe consistent with scar. There is minimal distention of the urinary bladder. The uterus is normal in appearance. IMPRESSION: 1. Hepatomegaly. 2. There is mild distention of the gallbladder. 3. Bilateral nephrolithiasis.4. Minimal urinary bladder distension. Signed by Wesley Reyes MD 10/13/2017 02:24 P
[2017-10-13] MEDS ORDERED: ZOFR20TA PO (16:31)
[2017-10-13] MEDS ORDERED: PROT20TA11 PO (16:31)
[2017-10-13] MEDS ORDERED: SUCR1TA PO (16:31)
[2017-10-13 17:05] VITALS: BP 148/79
--- NOTE | 2017-10-13 18:10 | ECGEPIP ---
Stationary ECG Study [facility] - ED Test Date: 2017-10-13 Pat Name: RAFI YOUNG Department: Room: - Gender: F [employer]: LUIS MANUEL : 1990 Requested By: LEE Miles Order Number: [id number] Reading MD: Markus Carlton Measurements Intervals Graham Rate: 100 P: 9 DC: 155 QRS: 9 QRSD: 87 T: 58 QT: 364 QTc: 471 Interpretive Statements SINUS TACHYCARDIA NONSPECIFIC T-WAVE ABNORMALITY POOR R WAVE PROGRESSION SIMILAR TO 09/14/17 Electronically Signed On 10-13-2017 18:10:43 EST by Markus Carlton
== END 2017-10-13 17:08 | disposition home or self-care (01) ==
LOC: M ED 10:47 → EDBD 10:47 → M ED 17:08
DX: E11.69 Type 2 diabetes mellitus with other specified complication (principal); Z91.14 Patient's other noncompliance with medication regimen; R00.0 Tachycardia, unspecified; R11.2 Nausea with vomiting, unspecified; R16.0 Hepatomegaly, not elsewhere classified; N20.0 Calculus of kidney; Z79.4 Long term (current) use of insulin; Z79.899 Other long term (current) drug therapy; Z88.5 Allergy status to narcotic agent; Z88.1 Allergy status to other antibiotic agents
CPT/HCPCS: 74177; 76705; 80048; 80076; 83605; 83690; 84703; 85014; 85018; 85025; 86850; 86900; 86901; 93000; 93041; 96374; 96375; 99284; C9113; J2405; Q9967

== ENCOUNTER 2017-10-18 11:00 | Inpatient (IN) | payer OTHER ==
[~2017-10-18] VITALS: Ht 154.9 cm; Wt 71.0 kg
[~2017-10-18 11:00] MED LIST changes: +PROT20TA11 PO; +SUCR1TA PO; +ZOFR20TA PO
[2017-10-18] MEDS ORDERED: ONDANSETRON 4MG/2ML VIAL (J2405) IV ONE (11:15)
[2017-10-18] MEDS ORDERED: NS 1,000 ML IV ONE (11:15)
[2017-10-18] MEDS ORDERED: NORC1TAB4 PO (11:26)
[2017-10-18] MEDS ORDERED: DILT60CASR PO (11:26)
[2017-10-18] MEDS ORDERED: TRAZ50TA11 PO (11:26)
[2017-10-18] MEDS ORDERED: GABA600T PO (11:26)
[2017-10-18] MEDS ORDERED: PROM25TA PO (11:26)
[2017-10-18] MEDS ORDERED: IBUP80TA PO (11:26)
[2017-10-18] MEDS ORDERED: CLIN150C14 PO (11:26)
[2017-10-18] MEDS ORDERED: MORPHINE 4 MG/ML 1ML SYRINGE IV ONE (12:30)
[2017-10-18] MEDS ORDERED: PANTOPRAZOLE 40MG INJ (PROTONIX) (C9113) IV ONE (12:30)
[2017-10-18 12:44] LABS: BASO # 0.1 10^3/uL (0.0-0.2); BASO % 0.5 % (0.0-1.0); EOS # 0.2 10^3/uL (0.0-0.50); EOS % 1.9 % (0.0-3.0); IMMATURE GRANULOCYTE % 0.5 % (0-0); LYMPH # 1.2 10^3/uL (1.5-6.5); LYMPH % 11.3 % (24.0-44.0); MEAN CORPUSCULAR HEMOGLOBIN 25.4 pg (27.0-33.0); MEAN CORPUSCULAR HGB CONC 32.4 g/dl (32.0-36.5); MEAN CORPUSCULAR VOLUME 78.6 fl (80.0-96.0); MONO # 0.7 10^3/uL (0.0-0.8); MONO % 6.9 % (0.0-5.0); NEUTROPHILS # 8.5 10^3/uL (1.8-7.7); NEUTROPHILS % 78.9 % (36.0-66.0); PLATELET COUNT, AUTOMATED 423 10^3/uL (150-450); RED CELL DISTRIBUTION WIDTH 13.1 % (11.5-14.5); WHITE BLOOD COUNT 10.7 10^3/uL (4.0-10.0)
[2017-10-18 12:55] LABS: PLT CLUMPS? POS FLAG; POS COUNT POS FLAG
[2017-10-18 13:15] LABS: ALBUMIN 2.3 GM/DL (3.2-5.2); ALKALINE PHOSPHATASE 176 U/L (45-117); ALT/SGPT 46 U/L (12-78); ANION GAP 11 MEQ/L (8-16); AST/SGOT 19 U/L (7-37); BILIRUBIN,DIRECT < 0.1 MG/DL (0.0-0.2); BILIRUBIN,TOTAL 0.3 MG/DL (0.2-1.0); BLOOD UREA NITROGEN 26 MG/DL (7-18); CALCIUM LEVEL 8.6 MG/DL (8.5-10.1); CARBON DIOXIDE LEVEL 23 MEQ/L (21-32); CHLORIDE LEVEL 102 MEQ/L (98-107); CREATININE FOR GFR 0.87 MG/DL (0.55-1.02); GLOMERULAR FILTRATION RATE > 60.0 (>60); GLUCOSE, FASTING 369 MG/DL (70-105); POTASSIUM SERUM 4.3 MEQ/L (3.5-5.1); SODIUM LEVEL 136 MEQ/L (136-145); TOTAL PROTEIN 5.6 GM/DL (6.4-8.2)
[2017-10-18 13:22] LABS: CONTROL LINE HCG INT CTR LINE PRESENT
[2017-10-18] MEDS ORDERED: GASTROGRAFIN SOLUTION 30ML (Q9963) As Ordered ONE (13:27)
[2017-10-18 13:29] LABS: INR 0.91
[2017-10-18] MEDS ORDERED: GASTROGRAFIN SOLUTION 30ML (Q9963) PO ONE ×2 (13:45→14:15)
[2017-10-18] MEDS ORDERED: ISOVUE-370 76% 100ML VIAL (Q9967) As Ordered ONE (14:57)
--- NOTE | 2017-10-18 15:46 | REP ---
CT of the abdomen and pelvis with IV and bowel contrast: Comparison is 10/14/2017. Within the visualized lung mancia are bilateral pleural effusions as interval change. Previously a pericardial effusion was suspected along the posterior myocardium. This is again suspected today. There are patchy bilateral lower lobe infiltrates. The hepatic parenchyma is homogeneous. The gallbladder is unremarkable. The pancreas and spleen are normal size. There is a low density mass like lesion in the mid pole of the spleen, not identified on the comparison study that was performed without IV contrast. This is nonspecific and could represent a splenic hematoma, infarct or mass. Measures 5.6 x 4.3 cm. The adrenals and kidneys are unremarkable. The abdominal aorta is unremarkable except for calcified atheroma, somewhat unusual for patient age. There is no bowel distension or obstruction. There are no inflammatory changes in the mesentery. Pelvis: The ovaries appear large bilaterally and. There may be bilateral ovarian cysts. Pelvic ultrasound might be considered for confirmation. The uterus is unremarkable. There is no ascites or adenopathy. The bladder is unremarkable. The bladder is distended with nonopacified fluid. Impression: Bilateral pleural effusions. Probable persisting pericardial effusion. Low density mass like lesion in the mid pole of the spleen, splenic hematoma, infarct or mass are diagnostic considerations. Calcified atheroma in the abdominal aorta, an unusual for patient age. Possible bilateral ovarian cysts. Consider pelvic ultrasound for confirmation. No free fluid in the pelvis. No abdominal or pelvic adenopathy. Signed by Marlo Chi MD 10/18/2017 03:38 P
[2017-10-18] MEDS ORDERED: PIPERACILLIN/TAZOBACTAM SOD 3.375 GM in APPROPRIATE DILUENT 1 EA IV ONE (16:00)
--- NOTE | 2017-10-18 16:00 | REP ---
CT CHEST WITHOUT IV CONTRAST: 10/18/2017. Comparison: Bone windows from CT abdomen 10/15/2017, 10/14/2017 at [facility]. Clinical history: Dyspnea. Findings: Noncontrast exam with coronal and sagittal reconstructions provided. There are now bilateral effusions, larger than on 10/15, new since 10/14. Both extend to the apex. There are extensive patchy diffuse air-space infiltrates with some interstitial edema or interstitial infiltrates as well. Heart size mildly prominent. There are coronary calcifications, unusual in a 27-year-old female. Pericardial effusion is noted anteriorly. Left atrium and left ventricle are enlarged. There is fluid in the superior pericardial recesses. The aorta is without aneurysm. No periaortic or retroperitoneal pathologic sized adenopathy. No axillary, supraclavicular mass. Bone windows show the sternum, manubrium, clavicles, scapulae, ribs and spine without fracture or focal lesion. The upper abdomen will be discussed in the CT abdomen report. Impression: 1. There is a new right effusion which extends to the apex and is larger than the smaller left effusion. That left effusion has increased in size over the past 3 days, new since the CT abdomen of 4 days ago. 2. Extensive bilateral consolidative areas of infiltrate or atelectasis and interstitial infiltrates or edema is seen as well. 3. Cardiomegaly with left atrial and ventricular enlargement with coronary artery calcifications and pericardial effusion. Fluid in the superior pericardial recess. No pathologic sized adenopathy. Signed by Mateo Anna MD 10/18/2017 06:59 P
[2017-10-18 16:26] LABS: ABG BASE EXCESS -4.5 (-2.0-2.0); ABG PARTIAL PRESSURE CO2 47.5 mmHg (35.0-45.0); ABG PARTIAL PRESSURE O2 59.7 mmHg (75.0-100.0); ABG STANDARD HCO3 20.6 MEQ/L (22.0-26.0); ABG TOTAL CO2 23.5 MEQ/L (22.0-29.0); ABG pH (ARTERIAL) 7.284 UNITS (7.350-7.450)
[2017-10-18] MEDS ORDERED: VANCOMYCIN HCL 1,000 MG, VIAL MATE ADAPTER 1 EACH in D5W 250 ML IV ONE (16:30)
[2017-10-18] MEDS ORDERED: SUCR1TA PO (16:51)
[2017-10-18] MEDS ORDERED: PANT20TA PO (16:51)
[2017-10-18] MEDS ORDERED: ZOFR20TA PO (16:51)
[2017-10-18] MEDS: METOCLOPRAMIDE INJ 10MG/2ML VIAL (J2765) IV PRN (16:57)
[2017-10-18] MEDS ORDERED: NS 1,000 ML IV SCH (17:00)
[2017-10-18 17:35] VITALS: BP 122/58
--- NOTE | 2017-10-18 18:11 | HPEPDOC ---
General Date of Admission 10/18/2017 Attending Physician: CM LEBLANC DO Chief Complaint The patient is a 27-year-old female admitted with a reason for visit of Facial injury. Source: Patient, Family, RN notes reviewed, Old records Exam Limitations: Clinical conditions Timing/Duration: 24 hours Associated Symptoms: Chest Pain, Nausea, Vomiting History of Present Illness Ms. Rose is a 27 year old female who presents to [facility] with facial swelling, nausea, coffee-ground emesis , and altered mental status. Past medical history is significant for: hypertension, depression, dyslipidemia , diabetes mellitus, diabetic neuropathy, gastroparesis, chronic pain, recurrent urinary tract infection (E. coli, Streptococcus group B, Klebsiella), MRSA, osteomyelitis, diabetic wound infections, gangrene, internal hemorrhoids, right-sided below the knee amputation. Obtaining the history of present illness was impaired by the patient's lack of response; she was unable to vocalize any answers to questions, and unable to follow commands. History was obtained from family, including , sister, and mother. Patient's reports a recent admission to [facility] from Saturday to Saturday of this week for abdominal pain and vomiting, which he states has been an on-going issue for several months. Following her discharge on Saturday, he states that she was in her standard state of health until yesterday afternoon, when she began complaining of chest pain, lightheadedness, and was noted to be diaphoretic. The patient's mother reports being contacted by the mother, who advised presenting to the emergency department, but the patient decided against this, as she reportedly had a doctor's appointment for today. This morning, her reports that she awoke around 5am with nausea and vomiting of coffee-ground emesis. He also noted a left-sided facial swelling that was new; however, the patient's mother reports this also occurred around Thanksgiving with unknown etiology. The patient's further reports confusion beginning upon presentation to the hospital today. The hospitalist team was consulted for patient to be admitted for further medical management. Home Medications Scheduled (Yesika Degroot) 300 Unit/Ml Inj, 60 UNIT SC QHS, (Reported) Amitriptyline HCl (Amitriptyline HCl) 25 Mg Tab, 25 MG PO QHS, (Reported) Atorvastatin Calcium (Atorvastatin Calcium) 20 Mg Tab, 20 MG PO QHS, (Reported) Citalopram Hydrobromide (Celexa) 10 Mg Tab, 10 MG PO QHS, (Reported) Ferrous Sulfate (Ferrous Sulfate) 325 Mg Tab, 325 MG PO DAILY Gabapentin (Gabapentin) 300 Mg Cap, 300 MG PO QPM, (Reported) TAKES AT 1700 Gabapentin (Gabapentin) 600 Mg Tab, 1,200 MG PO QHS, (Reported) Insulin Aspart (Novolog) 100 U/Ml Inj, 40 UNITS SC AC, (Reported) Lisinopril (Lisinopril) 20 Mg Tab, 20 MG PO DAILY, (Reported) Metformin Hydrochloride (Metformin HCl) 500 Mg Tab, 1,000 MG PO BID, (Reported) Metoclopramide Hcl (Reglan) 5 Mg Tab, 5 MG PO ACHS Pantoprazole Sodium (Pantoprazole Sodium) 20 Mg Tab, 20 MG PO DAILY, (Reported) NEW MED NOT STARTED Spironolactone (Aldactone) 25 Mg Tab, 25 MG PO QAM Sucralfate (Carafate) 1 Gm Tab, 1 GM PO BID, (Reported) NEW MED NOT STARTED Tamsulosin Hydrochloride (Flomax) 0.4 Mg Cap, 0.4 MG PO DAILY Torsemide (Torsemide) 10 Mg Tab, 10 MG PO DAILY Scheduled PRN Acetaminophen/Hydrocodone (Lesage 5-325 mg) 1 Tab Tab, 1 TAB PO for PAIN, ( Reported) Ondansetron HCl (Zofran) 4 Mg Tab, 4 MG PO Q8H PRN for NAUSEA, (Reported) Promethazine HCl (Promethazine HCl) 25 Mg Tab, 25 MG PO for VOMITING, (Reported) Trazodone HCl (Trazodone HCl) 50 Mg Tab, 50 MG PO QHSP PRN for INSOMNIA, ( Reported) Allergies Coded Allergies: Metronidazole (Verified Allergy, Severe, SWELLING, 10/04/17) Oxycodone (Verified Allergy, Severe, SWELLING, 10/04/17) Past Medical History Medical History 1. Hypertension 2. Depression 3. Dyslipidemia 4. Diabetes mellitus 5. Diabetic neuropathy 6. Gastroparesis 7. Chronic pain 8. Recurrent urinary tract infection (E. coli, Streptococcus group B, Klebsiella ) 9. MRSA 10. Osteomyelitis 11. Diabetic wound infections 12. Gangrene 13. Internal hemorrhoids 14. Right-sided below the knee amputation Surgical History 1. Right 5th toe amputation 2. Left 2nd toe amputation 3. Appendectomy 4. Colonoscopy 5. Marsupialization of left Bartholin's gland abscess and drainage Family History Father: Alive, hypertension, diabetes Mother: Alive, diabetes Brother: Alive, 20s, hypertension Sister: Alive, 20s, diabetes Social History Lives with . Has no children. Admits to three dogs in the house. Stay' s at home. Denies tobacco use. Previously drank approximately one beer, but has not had a alcohol beverage in over a year; before that, used to drink > 8 drinks/day for about 10 years. Denies illicit drug use. No travel Review of Symptoms Constitutional: Denies: Chills, Fever, Malaise, Night Sweats, Weakness, Weight Loss Eyes: Denies: Pain, Vision change ENT: Denies: Head Aches, Ear Pain, Dysphagia Skin: Denies: Rash, Lesions Pulmonary: Denies: Dyspnea, Cough Cardiovascular: Reports: Chest Pain (1 episode of chest pain yesterday), Lt Headedness, Denies: Palpitations, Orthopnea, Paroxysmal Noc. Dyspnea, Edema Gastrointestinal: Reports: Nausea, Vomiting, Abdominal Pain, Denies: Diarrhea, Constipation, Melena, Hematochezia Genitourinary: Denies: Dysuria, Frequency, Incontinence Hematologic: Denies: Bruising, Bleeding Excessively Musculoskeletal: Denies: Neck Pain, Back Pain, Joint Pain, Muscle Pain, Spasms Neurological: Reports: Confusion, Denies: Change in speech Psych: Reports: Mood Normal, Denies: Depression, Memory Issues Other systems All ROS as reported by patient's Physical Examination General Exam: Positive: Other (Not alert; refuses to answer questions, stating "talk to my "; moans to pain) Eye Exam: Negative: PERRLA (Pupils non-reactive to light) ENT Exam: Positive: Atraumatic (Limited exam as patient was on right side and could not cooperate to open mouth), Mucous membr. moist/pink, Pharynx Normal ( Limited exam as patient was on right side and could not cooperate to open mouth) , Tongue Midline Chest Exam: Positive: Clear to auscultation, Normal air movement Heart Exam: Positive: Rate Normal, Regular Rhythm, Normal S1, Normal S2, Negative: Murmurs, Rubs Abdomen Exam: Positive: BS Hypoactive, Tenderness, Other (Distended with tenderness on palpation noted by patient moaning;) Extremity Exam: Positive: Normal pulses, Other (Right BKA), Negative: Clubbing, Cyanosis, Edema Skin Exam: Positive: Nl turgor and temperature, Negative: Breakdown, Lesion Neuro Exam: Positive: Other (Unable to follow commands) Psych Exam: Positive: Other (Not alert, not oriented) Other physical findings CT abdomen and pelvis with IV and oral contrast IMPRESSION: Bilateral pleural effusions. Probable persisting pericardial effusion. Low density mass like lesion in the mid pole of the spleen, splenic hematoma, infarct or mass are diagnostic considerations. Calcified atheroma in the abdominal aorta, an unusual for patient age. Possible bilateral ovarian cysts. Consider pelvic ultrasound for confirmation. No free fluid in the pelvis. No abdominal or pelvic adenopathy. Vital Signs Vital Signs Date Time Temp Pulse Resp B/P (MAP) Pulse Ox O2 Delivery O2 Flow Rate FiO2 10/18/17 16:31 92 10/18/17 16:22 141/75 (97) 10/18/17 16:16 105 10/18/17 13:44 18 10/18/17 11:17 98.3 Room Air Height (in): 61 Weight (kg): 40.823 BMI (kg): 17 Laboratory Data Labs 24H Laboratory Tests 2 10/18/17 12:35: Immature Granulocyte % (Auto) 0.5H, White Blood Count 10.7H, Red Blood Count 3.50L, Hemoglobin 8.9L, Hematocrit 27.5L, Mean Corpuscular Volume 78.6L, Mean Corpuscular Hemoglobin 25.4L, Mean Corpuscular Hemoglobin Concent 32.4, Red Cell Distribution Width 13.1, Platelet Count 423, Neutrophils (%) (Auto) 78.9H, Lymphocytes (%) (Auto) 11.3L, Monocytes (%) (Auto) 6.9H, Eosinophils (%) (Auto) 1.9, Basophils (%) (Auto) 0.5, Neutrophils # (Auto) 8.5H, Lymphocytes # (Auto) 1.2L, Monocytes # (Auto) 0.7, Eosinophils # (Auto) 0.2, Basophils # (Auto) 0.1, Immature Granulocyte # (Auto) 0.1H, Nucleated Red Blood Cells % (auto) 0.0, Prothrombin Time 12.3L, Prothromb Time International Ratio 0.91, Activated Partial Thromboplast Time 32.2, Anion Gap 11, Glomerular Filtration Rate > 60.0 , Calcium Level 8.6, Aspartate Amino Transf (AST/SGOT) 19, Alanine Aminotransferase (ALT/SGPT) 46, Alkaline Phosphatase 176H, Total Bilirubin 0.3, Direct Bilirubin < 0.1, Total Creatine Kinase 104, Creatine Kinase MB 3.2, Creatine Kinase MB Relative Index 3.07, Troponin I 0.22H, Total Protein 5.6L, Albumin 2.3L, Albumin/Globulin Ratio 0.70L, Lipase 254, Human Chorionic Gonadotropin, Qual NEGATIVE 10/18/17 15:57: Blood Gas Bicarbonate Standard 20.6L, Arterial Blood pH 7.284L, Arterial Blood Partial Pressure CO2 47.5H, Arterial Blood Partial Pressure O2 59.7L, Arterial Blood Total CO2 23.5, Arterial Blood HCO3 22.0, Arterial Blood Base Excess -4.5L , Arterial Blood Oxygen Saturation 87.0L CBC/BMP Laboratory Tests 10/18/17 12:35 Red Blood Count 3.50 L, Mean Corpuscular Volume 78.6 L, Mean Corpuscular Hemoglobin 25.4 L, Mean Corpuscular Hemoglobin Concent 32.4, Red Cell Distribution Width 13.1, Neutrophils (%) (Auto) 78.9 H, Lymphocytes (%) (Auto) 11.3 L, Monocytes (%) (Auto) 6.9 H, Eosinophils (%) (Auto) 1.9, Basophils (%) ( Auto) 0.5, Neutrophils # (Auto) 8.5 H, Lymphocytes # (Auto) 1.2 L, Monocytes # ( Auto) 0.7, Eosinophils # (Auto) 0.2, Basophils # (Auto) 0.1 Plan / VTE VTE Prophylaxis Ordered?: Yes (TEDs, sequentials, knee high compression) Plan Plan 1. Abdominal pain with upper GI bleeding: Bedrest with commode. Obtain lactic acid, blood cultures. Metoclopramide, Zofran for nausea. Maintain NPO. Gastroenterology has been consulted. 2. Hypoxic respiratory failure with respiratory acidosis: Oxygen therapy order for O2 sat > 92% on NC. (See below) 3. Microcytic anemia: Obtain iron, ferritin, TIBC; B12, folate. 4. Diabetes mellitus with diabetic neuropathy and gastroparesis: Sliding scale insulin, Levemir 30 units daily, fingersticks every 6 hours, and hypoglycemic protocol. Continue with Gabapentin. Start Metoclopramide. Continue with Sucralfate. Dietary consult. 5. Hypertension: Continue amlodipine, diltiazem, hydrochlorothiazide, lisinopril. 6. Depression: Continue citalopram, amitriptyline. 7. Dyslipidemia: Continue atorvastatin. 8. Chronic pain: Continue Lesage, Morphine ordered for breakthrough pain. Discontinue Ibuprofen as patient has a GI bleed. 9. Insomnia: Continue trazodone as needed. Attending Addendum: I'm concerned about Ms Rose's respiratory failure and hypoxia. Her CT chest is concerning for bilateral patchy inflitrates and I believe she has a significant HCAP. will start Zosyn and Vancomycin IV and check blood cultures and sputum cultures. Trying to dig more out of her history I'm unsure if she is having hematemesis or hemoptysis. Regarding her pericardial effusion and bilateral pulmonary effusions: will check a 2d echo and give her a dose of Lasix and hold her IV fluids for now. Additionally I've asked Dr. Donohue (Pulm/Critical care) to consult on her. She does appear quite anasarcic vs nephrotic with her generalized edema of the face arms and right leg (left leg is s/p bka) and she will require further work up as well. I ordered: Thyroid profile, started workup for connective tissue and complements as well urinalysis and 24 hr urine for protein. Disposition: she appears quite ill at this time but for now appears hemodynamically stable, however if she should deteriorate she may need up graded to the ICU. Her prognosis is guarded. I had a matthew discussion with the patient and her family tonight as well. Disposition Admit: PCU Anticipated hospitalization: 2 nights Attending: Dr. Palacios Consult: Gastroenterology, Dr. Baker IVF: Initiate (NS @125mLs/hr) Diet: Make NPO Activity: Bedrest (With commode) Therapy: Other Therapy (Diet) Medications: Change to IV (Metoclopramide, PPI) Respiratory: Other Respiratory (Oxygen therapy > 92% on NC) Diagnostics: Check Labs, Repeat Labs in AM, Obtain Cultures Anticipated Discharge: Home GME ATTESTATION GME ATTESTATION My faculty preceptor for this patient encounter was physically present during the encounter and was fully available. All aspects of the patient interview, examination, medical decision making process, and medical care plan development were reviewed and approved by the faculty preceptor. The faculty preceptor is aware and concurs with the plan as stated in the body of this note and will attest to such by his/her co-signature. ATTENDING NOTE Attending Note: I have independently examined this patient and all aspects of the exam and treatment decisions have been discussed with the resident. A member of the hospitalist staff will continue to follow this patient through discharge. BUBBA GLOVER DO Oct 18, 2017 17:04 CM LEBLANC DO Oct 18, 2017 19:54
[2017-10-18] MEDS ORDERED: traZODone 50 MG TAB PO PRN (18:15)
[2017-10-18] MEDS ORDERED: NORCO, ANEXSIA 5/325MG TABLET (HYDROcodone/ACETAMINOPHEN) PO PRN (18:15)
[2017-10-18] MEDS: ONDANSETRON 4MG/2ML VIAL (J2405) IV PRN (18:19)
[2017-10-18] MEDS: MORPHINE 2 MG/ML 1ML SYRINGE IV PRN ×3 (18:20→22:59)
[2017-10-18] MEDS ORDERED: DEXTROSE 50% 50 ML SYRINGE IV PRN (18:30)
[2017-10-18] MEDS ORDERED: GLUCOSE 4 GM CHEW TABLET PO PRN (18:30)
[2017-10-18] MEDS ORDERED: GLUCAGON FOR INJ 1 MG VIAL (J1610) SC PRN (18:30)
[2017-10-18] MEDS: SUCRALFATE SUSP 1GM/10ML UD PO SCH ×2 (18:59→22:59)
[2017-10-18] MEDS: HumaLOG INSULIN (NovoLOG) PER UNIT SC SCH ×2 (19:00→23:09)
[2017-10-18 19:10] LABS: T UPTAKE 38 % (30-39)
[2017-10-18 19:11] LABS: THYROXINE (T4) 7.1 UG/DL (4.5-12.0)
[2017-10-18] MEDS ORDERED: FUROSEMIDE 100 MG/10 ML VIAL (J1940) IV ONE (19:15)
[2017-10-18 19:29] LABS: FOLATE 18.6 NG/ML (>5.4)
[2017-10-18 19:52] LABS: COMPLEMENT C3 125 MG/DL (90-180); COMPLEMENT C4 46.3 MG/DL (10-40)
[2017-10-18 20:00] VITALS: BP 109/53
[2017-10-18] MEDS: PIPERACILLIN/TAZOBACTAM SOD 3.375 GM in APPROPRIATE DILUENT 1 EA IV SCH (20:00)
--- NOTE | 2017-10-18 20:35 | CCN ---
DATE: 10/18/2017 CRITICAL CARE TIME: One hour. This excludes all proceed procedures. SUBJECTIVE: Maddie is a 27-year-old female with known history of gastroparesis with recent recurrent nausea, vomiting. She has had increased swelling including facial swelling, nausea. She was brought to the hospital today with hematemesis and has a combined metabolic respiratory acidosis. She had full body anasarca. I was consulted for hypoxia. The patient is a known diabetic with neuropathy, has a history of a below-knee amputation (BKA) on the right. She states she has always had swelling but never in her face and that is what, along with the hematemesis, has brought her to the hospital. She has had minimal nonproductive cough. She states there is blood in the vomit, not in her mucus. She does have a prior history of alcohol abuse; however, has not had a drink in over a year. She is afebrile but tachycardiac. No new leg pain. It is difficult to get a history as she is so quite ill, unable to answer most questions. She is alert and understands where she is and what is going on. PHYSICAL EXAMINATION VITAL SIGNS: Temperature is 98.7, pulse is 102, respiratory rate is 20, blood pressure is 122/58, oxygen saturation 92% on four liters. HEENT: Sclerae clear and anicteric. Pupils equal and react to light. Mucous membranes are moist. Her entire face is edematous. She has edema of her eyelids, of her mouth, neck. NECK: Elevated jugular venous pulse (JVP) to the level of her ear despite her being at the 45 degree angle. LYMPHATIC: No cervical, supraclavicular or axillary adenopathy. CARDIAC: Distant S1, S2, tachycardiac in nature. No rales, rhonchi or wheezes. No dullness to percussion. Point of maximum impulse (PMI) is difficult to palpate. PULMONARY: Decreased breath sounds throughout both lung mancia. No rales, rhonchi or wheezes. There is dullness to percussion at the bases, right greater than left. ABDOMEN: Obese, soft. She complains of generalized tenderness. Unable to obtain a fluid wave. EXTREMITIES: Pitting edema of her bilateral lower extremities all the way up to the level of her knee bilaterally. She has hand edema. Sacral edema. SKIN: Pale without jaundice or bruising. Multiple tattoos. MUSCULOSKELETAL: No joint effusions or evidence of fracture. IMAGING: Chest CT shows bilateral infiltrates with air bronchograms, bilateral pleural effusions, cardiomegaly with pericardial effusion. Abdominal CT shows a questionable splenic lesion, possible hematoma versus splenic infarct. LABORATORY DATA: INR is 0.9. Arterial blood gas shows a combined metabolic respiratory acidosis with a pH of 7.28, pCO2 of 48, pO2 of 58. Troponin has been elevated 0.22, 0.24. EKG does not show any acute ST elevations. Sodium is 136, potassium 4.3, chloride 102, bicarb of 23, BUN 11, creatinine of 0.87 with a glucose of 369. TSH is elevated and white blood cell count is 10.7, hemoglobin is low at 8.9 with a platelet count of 423. ASSESSMENT AND PLAN: 1. Hypoxia with diffuse pulmonary infiltrates with air bronchograms, bilateral pleural effusions, full body anasarca, most likely secondary to pulmonary edema. It is not unreasonable to workup alternative causes and cover her for pneumonia just in case because of the air bronchograms and possible hemoptysis, although she clearly identifies this is hematemesis. I would obtain a STAT echocardiogram to look at systolic function. She has elevated troponins. We will order brain natriuretic peptide (BNP). My suspicion is this is cardiac-induced disease. 2. Pulmonary edema. Pulmonary embolism (PE) has not been ruled out because of concern of her diabetes and possible renal dysfunction. We have an alternative cause of her hypoxia. However, this remains in the differential and would cover with deep venous thrombosis (DVT) prophylaxis. 3. Leukocytosis. I agree with ruling out vasculitic disease and covering with broad-spectrum antibiotics until infection has been ruled out. There is no evidence of hypotension or shock. 4. Hyperglycemia with diabetes. Recommend increased glucose control. 5. Facial edema likely secondary to anasarca from pulmonary edema. However, would discontinue lisinopril on the rare chance that this could be the start of angioedema. Her airway does not appear to be compromised at this point in time although she does have a Mallampati IV airway. 6. Coronary artery disease clearly seen on CT. Given her history of diabetes, should be worked up for this. 7. Microcytic anemia. Will continue to monitor for need for replacement. Likely secondary to combination of iron deficiency and acute blood loss with volume overload. Will continue to closely follow.
[2017-10-18] MEDS: LEVEMIR (INSULIN DETEMIR) 1 UNITS/0.01ML SC SCH (21:00)
[2017-10-18] MEDS: AMITRIPTYLINE 25 MG TAB PO SCH (21:24)
[2017-10-18] MEDS: GABAPENTIN 400 MG CAP PO SCH (21:24)
[2017-10-18] MEDS: CitaloPRAM (CeleXA) 10 MG TABLET PO SCH (21:24)
--- NOTE | 2017-10-18 22:28 | CR ---
DATE OF CONSULTATION: 10/18/2017 REFERRING PHYSICIAN: Ravinder Puente MD REASON FOR CONSULTATION: Coffee-ground emesis, anemia. HISTORY OF PRESENT ILLNESS: Kelsea is a 27-year-old female who was recently hospitalized at [facility] for intractable nausea, vomiting for the past 24-48 hours. The patient has had increased facial edema and total body swelling as well as increasing lethargy and persistent nausea and vomiting episodes. She was noted to have coffee-ground emesis at home. She was advised to come to the hospital for further evaluation. Upon evaluation, she has a hemoglobin of 8.9 and was noted to have heme-positive stools. Consultation to GI for further evaluation was placed. PAST MEDICAL HISTORY: 1. Diabetes which is poorly controlled. She has multiple complications including neuropathy, gastroparesis, peripheral vascular disease, multiple wound infections and toe amputation. 2. Hypertension. 3. Depression. PAST SURGICAL HISTORY: Appendectomy and toe amputations. FAMILY HISTORY: Noncontributory. SOCIAL HISTORY: Negative for alcohol, negative for tobacco. REVIEW OF SYSTEMS: General: Positive for fatigue, positive for shortness of breath. Positive for confusion. Pulmonary: Positive for dyspnea. Negative for hemoptysis. Cardiac: Negative for orthopnea, negative for chest pain or palpitations. GI: As per HPI. : Negative for hematuria, dysuria. Neurological: Positive for mild confusion. MEDICATIONS AT HOME: Gabapentin, pantoprazole, amlodipine, hydrochlorothiazide, amitriptyline, Celexa, insulin, trazodone, sucralfate, Reglan. ALLERGIES: METRONIDAZOLE and OXYCODONE. PHYSICAL EXAMINATION: Temperature 98.5, pulse is 88, respiratory rate is 20, blood pressure 109/53, pulse ox 93% on 4 liters nasal cannula. General. This is an ill-appearing white female. She is awake, but lethargic. She is oriented times three, but only answers questions on stimulation. Head, eyes, ears, nose and throat: Reveals marked facial edema to both cheeks and neck. There does not appear to be any respiratory compromise as her voice is clear when stimulated. Chest: Coarse breath sounds throughout with decreased air movement in both bases. Occasional expiratory wheeze. Heart is S1, S2. No murmurs are appreciated. Abdomen is soft, nontender. Positive bowel sounds. Obese. She has anasarca. I do not appreciate definite ascites. Extremities: Positive for 1+ pedal edema. Neurological: She is lethargic but arouses to stimulation. She is oriented times three upon questioning. She moves all extremities equally and bilaterally. LABORATORY FINDINGS: Hemoglobin 8.9/8.2, BUN is 26, creatinine is 0.87, troponin I 0.22/0.24, albumin 2.3, lipase 254. CT ABDOMEN AND PELVIS: IMPRESSION: Hepatic parenchyma is homogeneous. There is a low density mass lesion in the midpole of the spleen, which is not identified in the comparison study. Rule out splenic hematoma, infarct or mass. This is nonspecific. Bilateral pleural effusions, pericardial effusion. Calcified atheroma in the abdominal aorta. Bilateral ovarian cysts. No free fluid. CT CHEST: IMPRESSION: 1. There is a new right pleural effusion. Left pleural effusion has increased in size over past 3 days. 2. Extensive bilateral consolidative areas of infiltrate and interstitial infiltrates or edema is seen as well. 3. Cardiomegaly with left atrial and ventricular enlargement with coronary calcifications and pericardial effusion. IMPRESSION: 1. Hematemesis in the form of coffee grounds. There are no reports of fresh blood. 2. Anemia. 3. Respiratory failure, pericarial/pleural effusion/pulmonary edema. 4. Generalized edema anasarca. 5. Positive troponins. DISCUSSION: 1. This ill patient presents with coffee-ground emesis. There is no reports of fresh hematemesis. At this time, due to her other significant medical issues, endoscopy will be delayed until her respiratory and cardiac status are more clearly assessed and improved. This was discussed with anesthesia. Recommendations: 1. At this time, we will follow her for coffee-ground emesis expectedly, transfuse on a as needed (p.r.n.) basis to maintain her hemoglobin greater than 8-9 in view of potential coronary ischemia. Continue antiemetics/ reglan to reduce retching in case of dora valdez tear, cont PPI in case of PUD /erosive esophagitis. I do not think she has significant liver disease or varices/portal hypertension at her age despite her previous heavy alcohol use 2. Endoscopy once the patient's status improves. MTDD
[2017-10-18] MEDS: VANCOMYCIN HCL 1,000 MG, VIAL MATE ADAPTER 1 EACH in D5W 250 ML IV SCH (23:09)
[2017-10-18 23:10] VITALS: BP 123/60
[2017-10-19] VITALS (9 sets, daily range): BP systolic 102–176; BP diastolic 55–96
[2017-10-19] MEDS: ONDANSETRON 4MG/2ML VIAL (J2405) IV PRN ×3 (00:18→16:31)
[2017-10-19] MEDS: MORPHINE 2 MG/ML 1ML SYRINGE IV PRN ×2 (00:18→03:09)
[2017-10-19] MEDS: METOCLOPRAMIDE INJ 10MG/2ML VIAL (J2765) IV PRN ×3 (02:22→20:38)
[2017-10-19] MEDS ORDERED: ONDANSETRON 4MG/2ML VIAL (J2405) IV ONE (03:30)
[2017-10-19] MEDS ORDERED: NALOXONE INJ 0.4 MG/1 ML VIAL (J2310) As Ordered ONE (03:33)
[2017-10-19] MEDS ORDERED: NALOXONE INJ 0.4 MG/1 ML VIAL (J2310) IV STA (03:41)
[2017-10-19 03:53] LABS: ABG BASE EXCESS -0.4 (-2.0-2.0); ABG HCO3 23.9 MEQ/L (22.0-26.0); ABG PARTIAL PRESSURE CO2 37.7 mmHg (35.0-45.0); ABG PARTIAL PRESSURE O2 110.9 mmHg (75.0-100.0); ABG STANDARD HCO3 24.1 MEQ/L (22.0-26.0); ABG TOTAL CO2 25.1 MEQ/L (22.0-29.0)
[2017-10-19] MEDS: PIPERACILLIN/TAZOBACTAM SOD 3.375 GM in APPROPRIATE DILUENT 1 EA IV SCH (04:54)
[2017-10-19] MEDS: SUCRALFATE SUSP 1GM/10ML UD PO SCH ×4 (04:55→23:57)
[2017-10-19] MEDS ORDERED: ACETAMINOPHEN 325 MG TAB PO ONE (05:15)
[2017-10-19] MEDS: HumaLOG INSULIN (NovoLOG) PER UNIT SC SCH ×3 (05:51→18:14)
[2017-10-19 05:57] LABS: BASO # 0.1 10^3/uL (0.0-0.2); BASO % 0.6 % (0.0-1.0); EOS # 0.2 10^3/uL (0.0-0.50); EOS % 2.3 % (0.0-3.0); IMMATURE GRANULOCYTE % 0.4 % (0-0); LYMPH # 2.2 10^3/uL (1.5-6.5); MEAN CORPUSCULAR HGB CONC 32.3 g/dl (32.0-36.5); MEAN CORPUSCULAR VOLUME 80.4 fl (80.0-96.0); MONO # 0.8 10^3/uL (0.0-0.8); MONO % 10.3 % (0.0-5.0); NEUTROPHILS # 4.7 10^3/uL (1.8-7.7); NEUTROPHILS % 59.4 % (36.0-66.0); PLATELET COUNT, AUTOMATED 439 10^3/uL (150-450); RED CELL DISTRIBUTION WIDTH 13.6 % (11.5-14.5)
[2017-10-19 06:21] LABS: CALCIUM LEVEL 8.4 MG/DL (8.5-10.1); CREATININE FOR GFR 1.23 MG/DL (0.55-1.02); POTASSIUM SERUM 3.4 MEQ/L (3.5-5.1)
[2017-10-19] MEDS ORDERED: POTASSIUM CHLORIDE 10 MEQ SR TABLET PO ONE (07:15)
[2017-10-19] MEDS: PANTOPRAZOLE 40MG INJ (PROTONIX) (C9113) IV SCH (08:50)
[2017-10-19] MEDS: VANCOMYCIN HCL 1,000 MG, VIAL MATE ADAPTER 1 EACH in D5W 250 ML IV SCH (08:50)
[2017-10-19] MEDS: FUROSEMIDE 40 MG/4 ML VIAL (J1940) IV SCH ×3 (08:50→23:25)
[2017-10-19] MEDS: ASCORBIC ACID 250 MG TAB PO SCH (08:52)
[2017-10-19] MEDS: FERROUS SULFATE 325MG TAB PO SCH (08:52)
[2017-10-19] MEDS: BISACODYL 5 MG TAB PO SCH (08:52)
[2017-10-19] MEDS: SENOKOT S TAB PO SCH (08:52)
[2017-10-19] MEDS: NORCO, ANEXSIA 5/325MG TABLET (HYDROcodone/ACETAMINOPHEN) PO PRN ×2 (08:52→21:00)
[2017-10-19] MEDS ORDERED: amLODIPine 5 MG TAB PO SCH (09:00)
[2017-10-19] MEDS ORDERED: LISINOPRIL 20 MG TAB PO SCH (09:00)
[2017-10-19] MEDS ORDERED: hydroCHLOROthiazide 12.5 MG CAPSULE PO SCH (09:00)
--- NOTE | 2017-10-19 09:53 | PHACANCOPD ---
PHARMACY VANCOMYCIN DOSING Pt Demographics Demographics Patient Age:27 , Weight:86.200 , Gender: female Adjusted Body Weight Date: 10/19/17, Adjusted Body Weight: [63] Kg Events Past 24 Hours Events Past 24 Hours: YES: Diuretic Therapy (Lasix 40mg IV q8h), Change in CrCl , NO: Dialysis, Fever, Elevation in WBC, Pending Diagnostics, Pending Procedures, Other Vancomycin Vancomycin indication: pneumonia Vancomycin Target Ranges: 15-20 mcg/ml Vancomycin Load Y/N: Yes Load Dose Date Time Vancomycin Load Dose: 1000mg Date: 10/18 Time: 18:00 Vancomycin Dose Date: 10/19/17. Current Vancomycin Dose: [1g IV q12h @21] Date: 10/18/17. Current Vancomycin Dose: [1g IV q8h @00] Intermittent Dosing?: No Labs Labs Item Value Date Time White Blood Count 10.7 10^3/uL H 10/18/17 1235 White Blood Count 8.0 10^3/uL 10/19/17 0550 Creatinine 1.23 MG/DL H 10/19/17 0550 Creatinine 0.87 MG/DL 10/18/17 1235 Micro Microbiology 10/18/17 Blood Culture, Received Pending 10/18/17 Blood Culture, Received Pending Creatinine Clearance Date:10/19/17. Creatinine Clearance: [67 ml/min using adjusted BW]. Date:10/19/17. Creatinine Clearance: [94 ml/min using adjusted BW]. Pending Labs Vanco trough scheduled 10/20 @08:00 Assessment and Plan Maintaining Current Dose?: No Reason for dose change: Change in serum Cr Pharmacist Note Pharmacist Note Date: 10/19/17. Pharmacist note: pt was started yesterday on vancomycin and Zosyn for possible pneumonia. 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 She was last on vancomycin at our facility in 2013 of 1g IV q8h which I resumed yesterday. Her SCr significantly increased overnight and I have changed her dosing to 1g IV q12h with a trough tomorrow morning. She received 3 vancomycin doses ~8 hours apart. Blood cultures are pending. IV fluids were stopped last night secondary to edema, she also received lasix 80mg last night followed by 40mg IV q8h started this morning. I will follow up with the trough tomorrow morning. Gordo Delvalle.Speedy. Oct 19, 2017 09:53
--- NOTE | 2017-10-19 10:18 | IPNPDOC ---
Date Seen The patient was seen on 10/19/17. Progress Note SUBJECTIVE: Patient is a 27-year-old female with coffee-ground emesis , abdominal pain, and body wide anasarca. Patient is evaluated at bedside this morning. She does not actively participate in the evaluation; however, she is compliant with requests. Denies active bleeding, but continues to affirm that she was vomiting blood and not cough up blood. Admits to a stabbing pain in her abdomen that she describes as a pain that is "tearing her apart." Denies back pain, chest pain, fever, night sweats, or chills. Her Mother and arrive during my evaluation. OBJECTIVE PHYSICAL EXAMINATION: VITAL SIGNS: Please see below. GENERAL: Anasarcous female, not interactive, but compliant throughout examination, no acute distress HEENT: Atraumatic, normocephalic, PERRL, EOMI, face is edematous, without appreciable lymphadenopathy CARDIOVASCULAR: Regular rate and rhythm, normal S1 and S2, no murmur, rub, click RESPIRATORY: Clear to auscultation in the bilateral upper and lower left lung lobes, diminished airway excursion in the right lower lung lobe ABDOMINAL: Round, obese, soft, tender to palpation in the right lower quadrant, bowel sounds appreciated, tympanic throughout EXTREMITIES: Anasarcous, peripheral pulses appreciated bilaterally, equal, symmetrical, +2 pitting edema appreciated in the right lower extremity, no edema appreciate in the left stump, stage I-II pressure ulcer note on the stump of the left lower extremity, healed incision noted on stump NEUROLOGICAL: CN II-XIi grossly intact PSYCHOLOGICAL: Indifferent, somewhat flat affect, unengaged LABORATORY DATA: Please see below. MICROBIOLOGY: Please see below. Echocardiogram: Pending DVT prophylaxis ordered?: TEDs, sequentials, knee high compression ASSESSMENT AND PLAN: This is a 27-year-old female with coffee-ground emesis, abdominal pain, and body wide anasarca. PROBLEMS: 1. Body wide anasarca: Echocardiogram has been taken. Pending report. Continue with Lasix 40mg IV every 8 hours. BNP was [id number]. Most certainly a component of heart failure given extent of edema and findings on CT chest. Obtaining ultrasound of left lower extremity. 2. Coffee-ground emesis: No active vomiting at this time. Gastroenterology has been consulted and we continue to appreciate their valued assistance. Holding off on procedures for the time being due to #1. Continue with Protonix and Sucralfate. H/H every six hours. 3. Iron deficiency anemia: Initiate Ferrous sulfate, vitamin C, Senokot S, and Dulcolax. Continue monitoring CBC and watch for continued signs of bleeding. 4. Hypokalemia: Replenished. 5. Elevated troponin: Likely secondary to strain on cardiac muscle. No active signs of ischemia. VS are stable on bedside monitor. Continue to trend cardiac markers. As excess fluid is removed, it is likely that cardiac markers will improve. 6. 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 Continue with fingersticks every six hours and hypoglycemic protocol. Continue with Metoclopramide and Zofran. 7. Depression: Continue with Amitriptyline and Celexa. DISPOSITION: Pending echocardiogram report. Continue with Lasix. Obtain ultrasound of her left lower extremity. VS, I&O, 24H, [facility] Vital Signs/I&O Vital Signs Date Time Temp Pulse Resp B/P (MAP) Pulse Ox O2 Delivery O2 Flow Rate FiO2 10/19/17 09:22 18 10/19/17 08:00 99.7 99 121/56 (77) 96 10/19/17 04:00 Nasal Cannula 4.0 Laboratory Data 24H LABS Laboratory Tests 2 10/18/17 12:35: Immature Granulocyte % (Auto) 0.5H, White Blood Count 10.7H, Red Blood Count 3.50L, Hemoglobin 8.9L, Hematocrit 27.5L, Mean Corpuscular Volume 78.6L, Mean Corpuscular Hemoglobin 25.4L, Mean Corpuscular Hemoglobin Concent 32.4, Red Cell Distribution Width 13.1, Platelet Count 423, Neutrophils (%) (Auto) 78.9H, Lymphocytes (%) (Auto) 11.3L, Monocytes (%) (Auto) 6.9H, Eosinophils (%) (Auto) 1.9, Basophils (%) (Auto) 0.5, Neutrophils # (Auto) 8.5H, Lymphocytes # (Auto) 1.2L, Monocytes # (Auto) 0.7, Eosinophils # (Auto) 0.2, Basophils # (Auto) 0.1, Immature Granulocyte # (Auto) 0.1H, Nucleated Red Blood Cells % (auto) 0.0, Prothrombin Time 12.3L, Prothromb Time International Ratio 0.91, Activated Partial Thromboplast Time 32.2, Anion Gap 11, Glomerular Filtration Rate > 60.0 , Calcium Level 8.6, Aspartate Amino Transf (AST/SGOT) 19, Alanine Aminotransferase (ALT/SGPT) 46, Alkaline Phosphatase 176H, Total Bilirubin 0.3, Direct Bilirubin < 0.1, Total Creatine Kinase 104, Creatine Kinase MB 3.2, Creatine Kinase MB Relative Index 3.07, Troponin I 0.22H, Total Protein 5.6L, Albumin 2.3L, Albumin/Globulin Ratio 0.70L, Lipase 254, Thyroid Stimulating Hormone (TSH) 12.500H, Free Thyroxine Index 2.7, Thyroxine (T4) 7.1, Triiodothyronine (T3) Uptake 38, Human Chorionic Gonadotropin, Qual NEGATIVE 10/18/17 15:57: Blood Gas Bicarbonate Standard 20.6L, Arterial Blood pH 7.284L, Arterial Blood Partial Pressure CO2 47.5H, Arterial Blood Partial Pressure O2 59.7L, Arterial Blood Total CO2 23.5, Arterial Blood HCO3 22.0, Arterial Blood Base Excess -4.5L , Arterial Blood Oxygen Saturation 87.0L 10/18/17 17:09: Total Creatine Kinase 87, Creatine Kinase MB 3.3, Creatine Kinase MB Relative Index 3.79, Troponin I 0.24H, Iron Level 21L, Total Iron Binding Capacity 262, Transferrin % Saturation 8.0L, Ferritin 101, Vitamin B12 Level 288, Folate 18.6 10/18/17 17:10: Lactic Acid Level 1.1 10/18/17 18:53: Bedside Glucose (Misc Panel) 364H 10/18/17 19:10: [id number]-Type Natriuretic Peptide 95343I, Rheumatoid Factor < 10.0, Complement C3 125, Complement C4 46.3H 10/18/17 20:05: Urine Appearance CLOUDYH, Urine Color YELLOW, Urine pH 7.0, Urine Specific [place] 1.032, Urine Protein 3+H, Urine Glucose (UA) 3+H, Urine Ketones 1+H, Urine Urobilinogen 0.2, Urine Bilirubin NEGATIVE, Urine Leukocyte Esterase 2+H, Urine Blood NEGATIVE, Urine Nitrite NEGATIVE, Urine WBC (Auto) 74H, Urine RBC ( Auto) 2, Urine Hyaline Casts (Auto) 0, Urine Bacteria (Auto) 2+H, Urine Squamous Epithelial Cells 1, Urine Sperm (Auto) 10/18/17 20:59: Bedside Glucose (Misc Panel) 300H 10/18/17 23:04: Bedside Glucose (Misc Panel) 248H 10/19/17 00:51: Total Creatine Kinase 83, Creatine Kinase MB 1.9, Creatine Kinase MB Relative Index 2.28, Troponin I 0.23H 10/19/17 03:46: Blood Gas Bicarbonate Standard 24.1, Arterial Blood pH 7.420, Arterial Blood Partial Pressure CO2 37.7, Arterial Blood Partial Pressure O2 110.9H, Arterial Blood Total CO2 25.1, Arterial Blood HCO3 23.9, Arterial Blood Base Excess -0.4 , Arterial Blood Oxygen Saturation 98.5 10/19/17 05:36: Bedside Glucose (Misc Panel) 144H 10/19/17 05:50: Immature Granulocyte % (Auto) 0.4H, White Blood Count 8.0, Red Blood Count 3.27L , Hemoglobin 8.5L, Hematocrit 26.3L, Mean Corpuscular Volume 80.4, Mean Corpuscular Hemoglobin 26.0L, Mean Corpuscular Hemoglobin Concent 32.3, Red Cell Distribution Width 13.6, Platelet Count 439, Neutrophils (%) (Auto) 59.4, Lymphocytes (%) (Auto) 27.0, Monocytes (%) (Auto) 10.3H, Eosinophils (%) (Auto) 2.3, Basophils (%) (Auto) 0.6, Neutrophils # (Auto) 4.7, Lymphocytes # (Auto) 2.2, Monocytes # (Auto) 0.8, Eosinophils # (Auto) 0.2, Basophils # (Auto) 0.1, Immature Granulocyte # (Auto) 0.0, Nucleated Red Blood Cells % (auto) 0.0, Anion Gap 10, Glomerular Filtration Rate 55.0L, Blood Urea Nitrogen 19H, Creatinine 1.23H, Sodium Level 137, Potassium Level 3.4#L, Chloride Level 104, Carbon Dioxide Level 23, Calcium Level 8.4L, Total Creatine Kinase 90, Creatine Kinase MB 1.5, Creatine Kinase MB Relative Index 1.66, Troponin I 0.25H CBC/BMP Laboratory Tests 10/18/17 12:35 Red Blood Count 3.50 L, Mean Corpuscular Volume 78.6 L, Mean Corpuscular Hemoglobin 25.4 L, Mean Corpuscular Hemoglobin Concent 32.4, Red Cell Distribution Width 13.1, Neutrophils (%) (Auto) 78.9 H, Lymphocytes (%) (Auto) 11.3 L, Monocytes (%) (Auto) 6.9 H, Eosinophils (%) (Auto) 1.9, Basophils (%) ( Auto) 0.5, Neutrophils # (Auto) 8.5 H, Lymphocytes # (Auto) 1.2 L, Monocytes # ( Auto) 0.7, Eosinophils # (Auto) 0.2, Basophils # (Auto) 0.1 10/18/17 20:23 10/19/17 00:51 10/19/17 05:50 Red Blood Count 3.27 L, Mean Corpuscular Volume 80.4, Mean Corpuscular Hemoglobin 26.0 L, Mean Corpuscular Hemoglobin Concent 32.3, Red Cell Distribution Width 13.6, Neutrophils (%) (Auto) 59.4, Lymphocytes (%) (Auto) 27.0, Monocytes (%) (Auto) 10.3 H, Eosinophils (%) (Auto) 2.3, Basophils (%) ( Auto) 0.6, Neutrophils # (Auto) 4.7, Lymphocytes # (Auto) 2.2, Monocytes # (Auto ) 0.8, Eosinophils # (Auto) 0.2, Basophils # (Auto) 0.1, Calcium Level 8.4 L, Total Creatine Kinase 90 Microbiology Microbiology 10/18/17 Blood Culture, Received Pending 10/18/17 Blood Culture, Received Pending BUBBA GLOVER DO Oct 19, 2017 10:18
--- NOTE | 2017-10-19 12:04 | ECHO ---
DATE OF PROCEDURE: 10/18/2017 DATE OF : 1990 AGE: 27 REFERRING PROVIDER: Dr. Gustavo Donohue. PATIENT LOCATION: Room 3218. REASON FOR ECHOCARDIOGRAM: Pericardial effusion, unknown troponin. 2D MEASUREMENTS: IVS: 1.3 cm LV: 34.5 cm LVPW: 1.3 cm LA: 4.5 cm Aorta: 2.7 cm RV: 3.0 cm IVC: 1.2 cm DOPPLER MEASUREMENTS: Peak velocity across the aortic valve: 1.4 m/s Peak velocity across the LVOT: 1.0 m/s Mitral E: 1.7 Mitral A: 0.86 Ratio greater than 1.0 Maximum tricuspid valve velocity: 2.6 m/s 2D COMMENTS: 1. Normal left ventricular size with mildly increased left ventricular wall thickness. Left ventricular systolic function overall appeared to be normal estimated at 60-65%. 2. Mildly enlarged left atrium. The right atrium and right ventricle also appeared to be mildly enlarged. 3. The atrial septum appeared to be normal without evidence of defect or shunt. 4. Normal aortic root. 5. Small pericardial effusion noted, no evidence of cardiac tamponade. 6. A left pleural effusion was noted. 7. Aortic valve, mitral valve, tricuspid valve, and pulmonic valve appeared to be normal. 8. The inferior vena cava was normal in size, central venous pressure is probably normal. DOPPLER: It detects moderate mitral regurgitation and mild tricuspid regurgitation. The calculated pulmonary artery systolic pressure varies between 30-40 mmHg. Assessment of left ventricular diastolic function appeared to be normal. IMPRESSION: 1. Normal global left ventricular systolic function. Left ventricular diastolic function also appeared to be normal. 2. Moderate mild regurgitation with dilated left atrium. 3. Mild tricuspid regurgitation with probably mild pulmonary hypertension. The right heart chambers also appear to be mildly enlarged. 4. A small pericardial effusion was noted, no evidence of cardiac tamponade. 5. Left pleural effusion was also noted. MTDD
--- NOTE | 2017-10-19 12:07 | REP ---
REASON: Pain and swelling. TECHNIQUE: Multiple ultrasonographic images of the deep venous structures of the left thigh were obtained from the common femoral vein to the popliteal vein along with Doppler interrogation and color flow Doppler images. FINDINGS: There is no abnormal echogenic material seen within any of the visualized deep venous structures that would suggest acute thrombosis. Coaptation is unremarkable throughout. Doppler interrogation shows an expected response to respiratory variability and augmentation. The color flow images show what appears to be a normal vascular pattern throughout. IMPRESSION: There is no ultrasonographic evidence of deep venous thrombosis involving any of the visualized deep venous structures of the left thigh, as described above. Signed by Flip Rodriguez DO 10/19/2017 11:18 A
[2017-10-19] MEDS: GABAPENTIN 300 MG CAP PO SCH (16:21)
[2017-10-19] MEDS ORDERED: traMADol 50 MG TAB PO ONE (17:15)
[2017-10-19] MEDS ORDERED: GASTROGRAFIN SOLUTION 30ML (Q9963) PO ONE (18:15)
[2017-10-19] MEDS ORDERED: PROCHLORPERAZINE 5 MG TAB (S0183) PO ONE (18:45)
[2017-10-19] MEDS ORDERED: GASTROGRAFIN SOLUTION 30ML PO ONE (18:45)
[2017-10-19] MEDS: AMITRIPTYLINE 25 MG TAB PO SCH (21:00)
[2017-10-19] MEDS: LEVEMIR (INSULIN DETEMIR) 1 UNITS/0.01ML SC SCH (21:00)
[2017-10-19] MEDS ORDERED: VANCOMYCIN HCL 1,000 MG, VIAL MATE ADAPTER 1 EACH in D5W 250 ML IV SCH (21:00)
[2017-10-19] MEDS: GABAPENTIN 400 MG CAP PO SCH (21:00)
--- NOTE | 2017-10-19 21:30 | REPUSA ---
CT of the abdomen and pelvis without contrast Clinical statement: Pain. Technique: Multiple axial CT images were obtained from the base of the lungs to the floor of the pelv is utilizing 5 mm axial slices after administration of oral contrast. Coronal and sagittal reconstruc tions were also obtained. Comparison: 10/18/2017. Findings: Chest: The visualized lung bases demonstrate moderate sized bilateral pleural effusions and lower lob e infiltrates. Abdomen: The kidneys are normal in size bilaterally. There is no evidence of hydronephrosis. Several punctate nonobstructing stones are seen bilaterally. The liver remains enlarged. The spleen, pancreas , gallbladder and adrenal glands are unremarkable on this noncontrast study. The aorta demonstrates n ormal caliber and contour. There is no abdominal lymphadenopathy or ascites. Pelvis: The bowel is unremarkable, with no obstructive or inflammatory changes. The urinary bladder i s catheterized but otherwise within normal limits. There is no pelvic lymphadenopathy or ascites. The other pelvic structures appear unremarkable. Bones: There are no suspicious osseous abnormalities seen. Impression: 1. Stable bilateral lower lobe infiltrates and pleural effusions. 2. Bilateral nonobstructing nephrolithiasis. 3. Hepatomegaly. 4. The spleen appears unremarkable on this noncontrast study. 5. No obstructive or inflammatory bowel changes. 6. The other CT findings are stable.
[2017-10-19] MEDS: CitaloPRAM (CeleXA) 10 MG TABLET PO SCH (23:00)
[2017-10-20] VITALS (8 sets, daily range): BP systolic 124–160; BP diastolic 60–90
[2017-10-20] MEDS: ONDANSETRON 4MG/2ML VIAL (J2405) IV PRN ×3 (03:00→19:49)
[2017-10-20] MEDS: HumaLOG INSULIN (NovoLOG) PER UNIT SC SCH ×5 (06:00→20:47)
[2017-10-20] MEDS ORDERED: ACETAMINOPHEN 325 MG TAB PO ONE (06:15)
[2017-10-20 06:52] LABS: BASO # 0.1 10^3/uL (0.0-0.2); BASO % 1.2 % (0.0-1.0); EOS # 0.2 10^3/uL (0.0-0.50); EOS % 3.5 % (0.0-3.0); IMMATURE GRANULOCYTE % 0.3 % (0-0); LYMPH # 1.5 10^3/uL (1.5-6.5); LYMPH % 26.3 % (24.0-44.0); MEAN CORPUSCULAR HEMOGLOBIN 25.4 pg (27.0-33.0); MEAN CORPUSCULAR HGB CONC 33.1 g/dl (32.0-36.5); MEAN CORPUSCULAR VOLUME 76.8 fl (80.0-96.0); MONO # 0.8 10^3/uL (0.0-0.8); MONO % 14.5 % (0.0-5.0); NEUTROPHILS # 3.1 10^3/uL (1.8-7.7); NEUTROPHILS % 54.2 % (36.0-66.0); PLATELET COUNT, AUTOMATED 476 10^3/uL (150-450); RED CELL DISTRIBUTION WIDTH 13.4 % (11.5-14.5); WHITE BLOOD COUNT 5.7 10^3/uL (4.0-10.0)
[2017-10-20 07:10] LABS: ANION GAP 9 MEQ/L (8-16); BLOOD UREA NITROGEN 11 MG/DL (7-18); CALCIUM LEVEL 8.5 MG/DL (8.5-10.1); CARBON DIOXIDE LEVEL 31 MEQ/L (21-32); CHLORIDE LEVEL 95 MEQ/L (98-107); CREATININE FOR GFR 0.87 MG/DL (0.55-1.02); GLOMERULAR FILTRATION RATE > 60.0 (>60); GLUCOSE, FASTING 127 MG/DL (70-105); SODIUM LEVEL 135 MEQ/L (136-145)
[2017-10-20] MEDS: SUCRALFATE SUSP 1GM/10ML UD PO SCH ×4 (07:30→23:09)
[2017-10-20] MEDS ORDERED: POTASSIUM CHLORIDE 10 MEQ SR TABLET PO ONE ×2 (08:00→10:00)
[2017-10-20] MEDS ORDERED: MIRALAX *UNIT DOSE* 17GM PACKET PO ONE (08:00)
[2017-10-20] MEDS ORDERED: BISACODYL 10 MG SUPP PR ONE (08:00)
[2017-10-20] MEDS: PANTOPRAZOLE 40MG INJ (PROTONIX) (C9113) IV SCH (08:24)
[2017-10-20] MEDS: METOCLOPRAMIDE INJ 10MG/2ML VIAL (J2765) IV PRN ×2 (08:24→18:31)
[2017-10-20] MEDS: BISACODYL 5 MG TAB PO SCH (08:25)
[2017-10-20] MEDS: FERROUS SULFATE 325MG TAB PO SCH (08:25)
[2017-10-20] MEDS: FUROSEMIDE 40 MG/4 ML VIAL (J1940) IV SCH ×3 (08:25→23:09)
[2017-10-20] MEDS: ASCORBIC ACID 250 MG TAB PO SCH (08:26)
[2017-10-20] MEDS: NORCO, ANEXSIA 5/325MG TABLET (HYDROcodone/ACETAMINOPHEN) PO PRN (08:26)
[2017-10-20] MEDS: SENOKOT S TAB PO SCH (08:26)
[2017-10-20] MEDS ORDERED: amLODIPine 5 MG TAB PO SCH (09:00)
--- NOTE | 2017-10-20 10:42 | IPNPDOC ---
Text Note Date of Service The patient was seen on 10/20/17. NOTE SUBJECTIVE: Patient is a 27-year-old female with coffee-ground emesis , abdominal pain, and body wide anasarca. Patient is evaluated at bedside this morning. She does not actively participate in the evaluation; however, she is compliant with requests. Denies active bleeding. Continues to have a stabbing pain in her abdomen that she describes as a pain that is "tearing her apart." Also very nauseaous and vomiting overnight. Denies back pain, chest pain, fever, night sweats, or chills. OBJECTIVE PHYSICAL EXAMINATION: VITAL SIGNS: Please see below. GENERAL: Anasarcous female, not interactive, but compliant throughout examination, no acute distress HEENT: Atraumatic, normocephalic, PERRL, EOMI, face is edematous, without appreciable lymphadenopathy CARDIOVASCULAR: Regular rate and rhythm, normal S1 and S2, no murmur, rub, click RESPIRATORY: Clear to auscultation in the bilateral upper and lower left lung lobes, diminished airway excursion in the right lower lung lobe ABDOMINAL: Round, obese, soft, tender to palpation in the right lower quadrant, bowel sounds appreciated, tympanic throughout EXTREMITIES: Anasarcous, peripheral pulses appreciated bilaterally, equal, symmetrical, +2 pitting edema appreciated in the right lower extremity, no edema appreciate in the left stump, stage I-II pressure ulcer note on the stump of the left lower extremity, healed incision noted on stump NEUROLOGICAL: CN II-XIi grossly intact PSYCHOLOGICAL: Indifferent, somewhat flat affect, unengaged LABORATORY DATA: Please see below. MICROBIOLOGY: Please see below. Echocardiogram: Pending DVT prophylaxis ordered?: TEDs, sequentials, knee high compression ASSESSMENT AND PLAN: This is a 27-year-old female with coffee-ground emesis, abdominal pain, and body wide anasarca. PROBLEMS: 1. Anasarca: Echocardiogram reviewed good EF no diastolic dysfunction. Nephrotic range proteinuria with hypoalbuminemia causing the anasarca. Continue with Lasix 40mg IV every 8 hours. BNP was [id number]. Have ordered further work up for nephrotic proteinuria. Will consult nephrology. 2. Coffee-ground emesis: No active vomiting at this time. HH stable . Gastroenterology has been consulted and we continue to appreciate their valued assistance. Holding off on procedures for the time being due to #1. Continue with Protonix and Sucralfate. H/H every six hours. 3. Iron deficiency anemia: Initiate Ferrous sulfate, vitamin C, Senokot S, and Dulcolax. Continue monitoring CBC and watch for continued signs of bleeding. 4. Hypokalemia: Replenished. 5. Elevated troponin: Likely secondary to strain on cardiac muscle. No active signs of ischemia. VS are stable on bedside monitor. Continue to trend cardiac markers. As excess fluid is removed, it is likely that cardiac markers will improve. 6. 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 Will start carb consistent diet. Continue gabapentin, amitriptyline, norco. Continue with Metoclopramide and Zofran 7. Depression and insomnia : Continue with Amitriptyline and Celexa, trazodone. 8. Right BKA with chronic stump ulcer. 9. Hypertension: will restart lisinopril. Continue on amlodipine. diltiazem on hold. 10. Hyperlipidemia : will continue statin. VS,Fishbone, I+O VS, Fishbone, I+O Laboratory Tests 10/19/17 12:48 10/19/17 19:57 10/19/17 23:34 10/20/17 06:27 Calcium Level 8.5, Total Creatine Kinase 85 10/20/17 06:37 Red Blood Count 3.97 L, Mean Corpuscular Volume 76.8 L, Mean Corpuscular Hemoglobin 25.4 L, Mean Corpuscular Hemoglobin Concent 33.1, Red Cell Distribution Width 13.4, Neutrophils (%) (Auto) 54.2, Lymphocytes (%) (Auto) 26.3, Monocytes (%) (Auto) 14.5 H, Eosinophils (%) (Auto) 3.5 H, Basophils (%) ( Auto) 1.2 H, Neutrophils # (Auto) 3.1, Lymphocytes # (Auto) 1.5, Monocytes # ( Auto) 0.8, Eosinophils # (Auto) 0.2, Basophils # (Auto) 0.1 Vital Signs Date Time Temp Pulse Resp B/P (MAP) Pulse Ox O2 Delivery O2 Flow Rate FiO2 10/20/17 08:56 20 10/20/17 08:25 89 152/68 10/20/17 08:00 Nasal Cannula 4.0 10/20/17 08:00 97.9 95 I&O- Last 24 Hours up to 6 AM 10/21/17 06:00 Intake Total 0 ml Output Total 1000 ml Balance -1000 ml MARIELY FRANCOIS MD Oct 20, 2017 10:42
[2017-10-20 10:56] LABS: ALBUMIN 2.1 GM/DL (3.2-5.2); MAGNESIUM LEVEL 1.5 MG/DL (1.8-2.4); PHOSPHORUS LEVEL 4.5 MG/DL (2.5-4.9)
[2017-10-20] MEDS ORDERED: MAG SULF 1GM/100ML (MAG RUN) 1 GM in APPROPRIATE DILUENT 1 EA IV ONE (12:00)
[2017-10-20] MEDS ORDERED: LIDOCAINE 2% INJ 100 MG/5 ML SDV (FOR ANES.) As Ordered ONE (15:41)
[2017-10-20] MEDS ORDERED: PROPOFOL 200 MG/20 ML VIAL As Ordered ONE (15:41)
--- NOTE | 2017-10-20 15:51 | ROOR ---
Patient Name: Kelsea Rose Procedure Date: 10/20/2017 3:35 PM Date of : 1990 Age: 27 Gender: Female Note Status: Finalized Procedure: Upper GI endoscopy Indications: Lower abdominal pain, Coffee-ground emesis, Persistent vomiting Providers: Josh BAKER MD Referring MD: 2. Inpatient 2. Inpatient Requesting Provider: Medicines: Monitored Anesthesia Care Complications: No immediate complications. Procedure: Pre-Anesthesia Assessment: - The heart rate, respiratory rate, oxygen saturations, blood pressure, adequacy of pulmonary ventilation, and response to care were monitored throughout the procedure. The Endoscope was introduced through the mouth, and advanced to the second part of duodenum. The upper GI endoscopy was accomplished without difficulty. The patient tolerated the procedure well. Findings: Mildly severe esophagitis was found in the lower third of the esophagus. The entire examined stomach was normal. The examined duodenum was normal. Impression: - Reflux esophagitis-healing/mild. - Normal stomach. - Normal examined duodenum. - No specimens collected. Recommendation: - Continue present medications. - Continue Anti emetics, PPI - Gastroparesis diet: - Eat smaller, more frequent meals throughout the day. - Low fat diet. - Liquid/soft foods are tolerated better than solid foods. - Low fiber/well cooked vegetables are tolerated better than high fiber/fibrous foods/raw vegetables. - Avoid medications that inhibit gastric/intestinal motility such as narcotic medications. Josh Baker MD Josh BAKER MD 10/20/2017 3:51:15 PM This report has been signed electronically. Number of Addenda: 0 Note Initiated On: 10/20/2017 3:35 PM Estimated Blood Loss: Estimated blood loss: none.
[2017-10-20] MEDS ORDERED: ONDANSETRON 4MG/2ML VIAL (J2405) IV PRN (16:15)
[2017-10-20] MEDS ORDERED: LR 1,000 ML IV SCH (16:15)
[2017-10-20] MEDS: GABAPENTIN 300 MG CAP PO SCH (17:00)
[2017-10-20] MEDS: LISINOPRIL 10 MG TAB PO SCH (17:13)
--- NOTE | 2017-10-20 17:53 | CR ---
DATE OF CONSULTATION: 10/20/2017 REQUESTING PHYSICIAN: Dr. Marianne Palacios. CONSULTING PHYSICIAN: Dr. Sahni. REASON FOR CONSULTATION: Management of proteinuria and anasarca in this patient with history of type one diabetes. NOTE: History was obtained from patient's chart and from medical team and patient's family members at the bedside. The patient is not interested in providing any reliable history at this time. HISTORY OF PRESENT ILLNESS: Kelsea Rose is a 27-year-old female with past medical history of insulin-dependent diabetes for many years. She evidently has a normal renal function at baseline; however, she reports that she has been listed for pancreatic transplant at [facility] ([facility], and she also follows up with nephrology at [facility]. Previous records are not available at this time. She has multiple other comorbidities including hypertension, diabetic neurology, gastroparesis, admitted this time because of multiple complaints with decreased appetite, nausea, vomiting, generalized body swelling. The patient was found to have significant proteinuria. 24-hour urine collection showed it was more than 8 grams, and the patient had anasarca with hypoalbuminemia. She was started on diuretics. Autoimmune serology was sent, and nephrology service was called for further help in the management of nephrotic range proteinuria and anasarca. I saw the patient today at bedside. She was lying in the bed, not really interested in communication, answering very few questions , otherwise no apparent distress. PAST MEDICAL HISTORY: Past medical history of insulin-dependent diabetes mellitus, hypertension, depression, hyperlipidemia, diabetic neuropathy, diabetic gastroparesis, recurrent urinary tract infections (UTIs) in the past, history of gangrene in the past. PAST SURGICAL HISTORY: Status post right below-knee amputation. Status post left second toe amputation. History of appendectomy. Status post colonoscopy, and history of left Bartholin' s gland abscess and drainage marsupialization. ALLERGIES: The patient is allergic to OXYCODONE and METRONIDAZOLE. FAMILY HISTORY: Positive history of diabetes in the mother, diabetes and hypertension in father, and diabetes in one sister as well. There is no history of end-stage renal disease requiring hemodialysis. SOCIAL HISTORY: The patient lives with her . She is not working at this time. She has no children. There is no history of smoking. Admits to drinking in the past, but denies any recent drinking, and she denies illicit drug use as well. REVIEW OF SYSTEMS: CONSTITUTIONAL: The patient denies any fever, chills, rigors. EYES: She denies any blurry vision or double vision. ENT: She denies any dysphagia, odynophagia or ear discharge. CARDIOVASCULAR: She reports generalized edema. She denies any chest pain of palpitations. RESPIRATORY: She denies any shortness of breath. GASTROINTESTINAL (GI): The patient reports nausea, decreased appetite, and diabetic gastroparesis. GENITOURINARY: She denies any dysuria, hematuria. MUSCULOSKELETAL: She denies any muscle aches and pains. SKIN: She denies any rashes or ulcers. CENTRAL NERVOUS SYSTEM (RING SEWER): No weakness or seizure. PSYCHIATRIC: The patient is not interested in communication or providing any history. ENDOCRINE: The patient is an insulin-dependent diabetic. HEMATOLOGIC/ONCOLOGIC: She denies any easy bruising or bleeding. All other review of systems is negative. PHYSICAL EXAMINATION: GENERAL: The patient is lying in bed. She is awake but her eyes are closed. Not interested in talking. VITAL SIGNS: Temperature is 98.4 degrees Fahrenheit, blood pressure is 160/90, pulse 99, respiratory rate of 18, saturating 95% on nasal cannula at four liters. INTAKE AND OUTPUT: Urine output recorded yesterday is 5.7 liters. Urine output so far today since overnight is 3.3 liters. Weight in the bed scale is not available. HEAD/NECK: Head is atraumatic, normocephalic. The patient has closed her eyes at this time. Mucous membranes are moist. Neck is supple. There is no jugular venous distention (JVD). CARDIOVASCULAR: S1, S2. Regular rate. There is 2+ edema of the left lower extremity. RESPIRATORY: Chest is clear to auscultation bilaterally. Bilateral equal air entry. ABDOMEN: Soft, positive bowel sounds. Mildly tender to deep palpation in the epigastrium. No organomegaly was appreciated. MUSCULOSKELETAL: The patient has right below-knee amputation, and patient has a left second toe amputation as well. Otherwise normal range of movement. No clubbing or cyanosis. CENTRAL NERVOUS SYSTEM (RING SEWER): No focal deficit at this time. The patient follows some commands, and the power in bilateral upper extremities is 5/5. SKIN: No rashes or ulcerations. The patient has tattoos in the back. PSYCHIATRIC: The patient has a depressed mood. She is not interested in communication at this time. LABORATORY DATA: CBC showed a WBC of 5.7, hemoglobin 10.1, platelets 476. INR is 0.91. Urinalysis done on 10/18 showed 3+ protein, 2+ leukocyte esterase, 2+ bacteria. 24-hour urine protein was more than 8 grams. Spot protein-creatinine ratio done yesterday showed total protein was 233, creatinine was 26 which translates to more than 7 grams of protein. BMP done today morning showed sodium 135, potassium three, chloride 96, bicarbonate 31, BUN 11, creatinine 0.87, glucose is 127, calcium 8.5, phosphorus 4.5, magnesium 1.5. Albumin is 2.1. IMMUNOLOGY: Rheumatoid factor is negative. EILEEN, ANCA, ayla-kaixos-pcrcubdi DNA, antiribosomal antibody are all pending. C3 and C4 within normal range. CH-50 is also pending. Hepatitis B and hepatitis C panel is also pending. MICROBIOLOGY: Blood cultures and urine cultures are negative so far. IMAGING: CT scan of the abdomen and pelvis done yesterday showed bilateral lower lobe infiltrates and pleural effusion, bilateral nonobstructing nephrolithiasis, hepatomegaly. Doppler of the left lower extremity was done. It showed no evidence of DVT. CT scan of the chest without contrast was done on 10/18/2017, which showed a large right and small left pleural effusion, cardiomyopathy with left ventricular enlargement. Echocardiogram done on 10/18/2017, showed normal left ventricular systolic function, mild tricuspid regurgitation and mild pulmonary hypertension. Left pleural effusion was noted. CURRENT INPATIENT MEDICATIONS: The patient's medications were all reviewed by me. I have given the patient one run of intravenous (IV) magnesium sulfate. She was on IV vancomycin every 12 hours which has stopped. She is on: - Tylenol as needed - amitriptyline 25 mg daily - amlodipine was stopped - vitamin C 250 mg daily - iron 325 mg by mouth daily - Lasix 40 mg IV every eight hours - gabapentin 300 mg in the morning and 1200 mg at bedtime - insulin Levemir 30 units subcutaneous at bedtime - insulin lispro sliding scale - lisinopril 10 mg daily - Reglan 10 mg every six as needed for nausea or vomiting - Zofran as needed - Protonix 40 mg IV every 24 - potassium chloride 40 mEq by mouth daily - Sucralfate 1 gram by mouth every six hours - trazodone 50 mg at bedtime as needed for insomnia ASSESSMENT: A 27-year-old female with insulin-dependent diabetes, hypertension, diabetic gastroparesis with nephrotic range proteinuria and anasarca. PLAN: 1. Nephrotic range proteinuria: The patient's autoimmune serology is already sent by the primary team. The patient also reports that she follows up with nephrology at [facility], and she also has been listed for pancreatic transplant. I will get all the inpatient and outpatient records from [facility], and we will see if any other workup for proteinuria has been done. Proteinuria most likely looks like to be secondary to diabetic nephropathy. However, if no other etiology is found, then we would consider doing a renal biopsy in this patient. 2. Anasarca: It is most likely secondary to nephrotic range proteinuria with hypoalbuminemia and decreased oral intake in this patient because of diabetic gastroparesis. She is already being diuresed with Lasix 40 mg IV every eight hours. Continue current dose. Continue the lisinopril at this time as well. Blood pressure is acceptable. 3. Insulin-dependent diabetes mellitus: Continue current dose of Levemir and insulin sliding scale. Her glucose level is within the acceptable range. 4. Hypertension: Blood pressure is acceptable at this time. I agree with holding amlodipine which might contribute to anasarca as well. Continue current dose of lisinopril 10 mg daily. Continue diuretics. 5. Iron-deficiency anemia: The patient's transferrin saturation is 8% and ferritin is 101. She has been started on oral iron. Hemoglobin is nicely improving, is 10.1 at this time. No need of blood transfusion at this time. Continue proton pump inhibitor (PPI) and Sucralfate for coffee-ground emesis, and patient will likely get an endoscopy done soon. 6. Hypokalemia: It is secondary to aggressive diuresis. The patient was already given potassium chloride by the primary team. Continue current dose of potassium chloride daily. 7. Hyponatremia: It is most likely hypervolemic hyponatremia. Continue the diuresis. Sodium is acceptable at 135 for now. Thank you for involving us in the care of this patient. We shall be happy to follow the patient along with you tomorrow morning. [facility]
[2017-10-20] MEDS ORDERED: FLEET ENEMA PR ONE (18:00)
[2017-10-20] MEDS: GABAPENTIN 400 MG CAP PO SCH (20:45)
[2017-10-20] MEDS: CitaloPRAM (CeleXA) 10 MG TABLET PO SCH (20:45)
[2017-10-20] MEDS: MIRALAX *UNIT DOSE* 17GM PACKET PO SCH (20:45)
[2017-10-20] MEDS: AMITRIPTYLINE 25 MG TAB PO SCH (20:45)
[2017-10-20] MEDS: LEVEMIR (INSULIN DETEMIR) 1 UNITS/0.01ML SC SCH (20:46)
[2017-10-21] MEDS: METOCLOPRAMIDE INJ 10MG/2ML VIAL (J2765) IV PRN ×2 (00:20→08:08)
[2017-10-21] MEDS ORDERED: PROMETHAZINE INJ 25 MG/ML VIAL (J2550) IV ONE (01:45)
[2017-10-21] MEDS: SUCRALFATE SUSP 1GM/10ML UD PO SCH ×4 (05:26→23:47)
[2017-10-21] MEDS: ONDANSETRON 4MG/2ML VIAL (J2405) IV PRN ×3 (05:33→20:53)
[2017-10-21 05:43] LABS: BASO % 0.7 % (0.0-1.0); EOS # 0.2 10^3/uL (0.0-0.50); EOS % 3.6 % (0.0-3.0); IMMATURE GRANULOCYTE % 0.7 % (0-0); LYMPH # 1.4 10^3/uL (1.5-6.5); LYMPH % 25.6 % (24.0-44.0); MEAN CORPUSCULAR HEMOGLOBIN 25.5 pg (27.0-33.0); MEAN CORPUSCULAR HGB CONC 32.6 g/dl (32.0-36.5); MEAN CORPUSCULAR VOLUME 78.3 fl (80.0-96.0); MONO # 0.7 10^3/uL (0.0-0.8); MONO % 12.5 % (0.0-5.0); NEUTROPHILS # 3.2 10^3/uL (1.8-7.7); NEUTROPHILS % 56.9 % (36.0-66.0); PLATELET COUNT, AUTOMATED 508 10^3/uL (150-450); RED CELL DISTRIBUTION WIDTH 13.8 % (11.5-14.5); WHITE BLOOD COUNT 5.6 10^3/uL (4.0-10.0)
[2017-10-21 05:57] LABS: ANION GAP 8 MEQ/L (8-16); BLOOD UREA NITROGEN 10 MG/DL (7-18); CALCIUM LEVEL 8.6 MG/DL (8.5-10.1); CARBON DIOXIDE LEVEL 34 MEQ/L (21-32); CHLORIDE LEVEL 92 MEQ/L (98-107); CREATININE FOR GFR 0.89 MG/DL (0.55-1.02); GLOMERULAR FILTRATION RATE > 60.0 (>60); GLUCOSE, FASTING 133 MG/DL (70-105); SODIUM LEVEL 134 MEQ/L (136-145)
[2017-10-21 06:00] VITALS: BP 166/95
[2017-10-21] MEDS: HumaLOG INSULIN (NovoLOG) PER UNIT SC SCH ×4 (07:30→20:45)
[2017-10-21] MEDS: PANTOPRAZOLE 40MG INJ (PROTONIX) (C9113) IV SCH (08:08)
[2017-10-21] MEDS: FUROSEMIDE 40 MG/4 ML VIAL (J1940) IV SCH (08:25)
[2017-10-21] MEDS: NORCO, ANEXSIA 5/325MG TABLET (HYDROcodone/ACETAMINOPHEN) PO PRN (08:25)
[2017-10-21] MEDS: MAG SULF 1GM/100ML (MAG RUN) 1 GM in APPROPRIATE DILUENT 1 EA IV SCH ×2 (08:25→09:58)
[2017-10-21] MEDS: SENOKOT S TAB PO SCH (08:41)
[2017-10-21] MEDS: MIRALAX *UNIT DOSE* 17GM PACKET PO SCH ×2 (08:41→21:00)
[2017-10-21] MEDS: BISACODYL 5 MG TAB PO SCH (08:41)
[2017-10-21] MEDS: FERROUS SULFATE 325MG TAB PO SCH (08:43)
[2017-10-21] MEDS: ASCORBIC ACID 250 MG TAB PO SCH (08:43)
[2017-10-21] MEDS: POTASSIUM CHLORIDE 10 MEQ SR TABLET PO SCH ×2 (08:43→21:00)
[2017-10-21] MEDS ORDERED: KCL 10MEQ IN 100ML SWI (KRUN) 10 MEQ in APPROPRIATE DILUENT 1 EA IV SCH ×2 (09:00)
[2017-10-21] MEDS ORDERED: POTASSIUM CHLORIDE 10 MEQ SR TABLET PO SCH (09:00)
[2017-10-21] MEDS: LISINOPRIL 10 MG TAB PO SCH (09:59)
[2017-10-21] MEDS: SPIRONOLACTONE 25 MG TAB PO SCH (09:59)
--- NOTE | 2017-10-21 11:12 | IPNPDOC ---
Text Note Date of Service The patient was seen on 10/21/17. NOTE SUBJECTIVE: Not interested in answering any questions, sleepy . Cannot remember earlier conversations. Also very nauseous and vomiting overnight. Continues to complain of abdominal pain. Had EGD yesterday . Denies back pain, chest pain, fever, night sweats, or chills. Denies any SOB though continues to be on oxygen. OBJECTIVE PHYSICAL EXAMINATION: VITAL SIGNS: Please see below. GENERAL: Anasarcous female, not interactive, but compliant throughout examination, no acute distress HEENT: Atraumatic, normocephalic, PERRL, EOMI, face is edematous, without appreciable lymphadenopathy CARDIOVASCULAR: Regular rate and rhythm, normal S1 and S2, no murmur, rub, click RESPIRATORY: Clear to auscultation in the bilateral upper and lower left lung lobes, diminished airway excursion in the right lower lung lobe ABDOMINAL: Round, obese, soft, tender to palpation in the right lower quadrant, bowel sounds appreciated, tympanic throughout EXTREMITIES: Anasarcous, peripheral pulses appreciated bilaterally, equal, symmetrical, +2 pitting edema appreciated in the right lower extremity, no edema appreciate in the left stump, stage I-II pressure ulcer note on the stump of the left lower extremity, healed incision noted on stump NEUROLOGICAL: CN II-XIi grossly intact PSYCHOLOGICAL: Indifferent, somewhat flat affect, unengaged LABORATORY DATA: Please see below. MICROBIOLOGY: Please see below. Echocardiogram: Pending DVT prophylaxis ordered?: TEDs, sequentials, knee high compression ASSESSMENT AND PLAN: This is a 27-year-old female with coffee-ground emesis, abdominal pain, and body wide anasarca. PROBLEMS: 1. Anasarca: Echocardiogram reviewed good EF no diastolic dysfunction. Nephrotic range proteinuria with hypoalbuminemia causing the anasarca. Continue with Lasix 40mg IV every 8 [place]. [place] [address]. Have ordered further work up for nephrotic proteinuria. Appreciate nephrology input. 2. Coffee-ground emesis: No active vomiting at this time. HH stable . Gastroenterology has been consulted and we continue to appreciate their valued assistance. Had EGD on 10/20/17 showed distal esophagitis. Continue with Protonix and Sucralfate. Continue gastroparesis diet. 3. Iron deficiency anemia: Initiate Ferrous sulfate, vitamin C, Senokot S, and Dulcolax. Continue monitoring CBC and watch for continued signs of bleeding. 4. Hypokalemia: Replenished. 5. Elevated troponin: Likely secondary to strain on cardiac muscle. No active signs of ischemia. VS are stable on bedside monitor. Continue to trend cardiac markers. As excess fluid is removed, it is likely that cardiac markers will improve. 6. 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 Will start carb consistent diet low residue, low fiber, low fat liquid to soft. Continue gabapentin, norco and celexa. Continue with Zofran and start her on compazine. 7. Depression and insomnia : Continue with celexa. hold trazodone and amytriptilline very sleepy also major drug interaction with compazine. 8. Right BKA with chronic stump ulcer. 9. Hypertension: will restart lisinopril. Continue on amlodipine. diltiazem on hold. 10. Hyperlipidemia : will continue statin. VS,Fishbone, I+O VS, Fishbone, I+O Laboratory Tests 10/20/17 12:16 10/20/17 17:41 10/20/17 23:40 10/21/17 05:29 Red Blood Count 4.23, Mean Corpuscular Volume 78.3 L, Mean Corpuscular Hemoglobin 25.5 L, Mean Corpuscular Hemoglobin Concent 32.6, Red Cell Distribution Width 13.8, Neutrophils (%) (Auto) 56.9, Lymphocytes (%) (Auto) 25.6, Monocytes (%) (Auto) 12.5 H, Eosinophils (%) (Auto) 3.6 H, Basophils (%) ( Auto) 0.7, Neutrophils # (Auto) 3.2, Lymphocytes # (Auto) 1.4 L, Monocytes # ( Auto) 0.7, Eosinophils # (Auto) 0.2, Basophils # (Auto) 0.0, Calcium Level 8.6 Vital Signs Date Time Temp Pulse Resp B/P (MAP) Pulse Ox O2 Delivery O2 Flow Rate FiO2 10/21/17 09:59 159/93 10/21/17 08:55 18 Nasal Cannula 10/21/17 06:00 97.5 103 100 4.0 I&O- Last 24 Hours up to 6 AM 10/22/17 06:00 Intake Total 0 ml Output Total 0 ml Balance 0 ml MARIELY FRANCOIS MD Oct 21, 2017 11:12
--- NOTE | 2017-10-21 13:35 | IPN ---
DATE: 10/21/2017 SUBJECTIVE: Patient was seen and examined at the bedside today morning. Patient got the EGD done yesterday which showed esophagitis. The stomach examination was normal. Patient continues to complain of nausea and she has been throwing up. Her renal function is stable. Edema is significantly better. REVIEW OF SYSTEMS: Patient denies any fever, chills, or rigors. She denies any chest pain or shortness of breath. She does report abdominal pain, nausea, decreased appetite, and she reports her edema is improving. The rest of review of systems is negative. OBJECTIVE: VITAL SIGNS: Temperature is 97.5 degrees Fahrenheit, blood pressure is 166/95, pulse 103, respiratory rate of 18, saturating 100% on nasal cannula at 4 liters. INTAKE AND OUTPUT: Urine output was 4 liters yesterday, 1 liter so far today since overnight. Weight on the bed scale is not available. PHYSICAL EXAMINATION: GENERAL: Patient is awake, alert and oriented times three. Laying in bed in no apparent distress. HEAD/NECK: Extraocular muscles intact. Pupils equally, round and reactive to light. Mucous membranes are moist. Neck is supple. There is no jugular venous distention (JVD). CARDIOVASCULAR: S1, S2, slight tachycardia. No murmur, rub or gallop. RESPIRATORY: Chest is clear to auscultation bilaterally. Bilateral equal air entry. No rales or rhonchi. ABDOMEN: Soft. Mildly tender to deep palpation in the epigastrium. Otherwise, no organomegaly. MUSCULOSKELETAL: Patient has a right below knee amputation. She has left second toe amputation as well. There is very trace edema of the left extremity. 2ND PRESSMAN: No focal neurological deficit. Power is 5/5 in bilateral upper extremities. PSYCH: Patient has a depressed mood. LAB REVIEW: CBC showed a WBC of 5.6, hemoglobin 10.8, platelets are 508. BMP showed sodium 134, potassium 3, chloride 92, bicarb is 34, BUN 10, creatinine 0.89, calcium was 8.6. CURRENT INPATIENT MEDICATIONS: The patient's medications were all reviewed by me. I have changed her Lasix to 40 mg IV daily. I have added spironolactone 25 mg by mouth in the morning. Patient was not taking by mouth potassium because of nausea. I ordered potassium chloride 10 mEq IV times three runs. She will also get magnesium sulfate 1 gram IV times two runs. ASSESSMENT: 27-year-old female with past medical history of insulin dependent diabetes since age 14, hypertension, diabetic gastroparesis, nephrotic range proteinuria, with reflux esophagitis. PLAN: 1. Nephrotic range proteinuria. The patient's autoimmune serology is still pending. I have requested the records from [facility] nephrology. After we receive the records of previous workup, then further evaluation will be done. Patient reports that she follows up with nephrology at [facility] and she is also listed for a pancreatic transplant. No need of steroids or immunosuppression at this time. 2. Anasarca. It is secondary to hypoalbuminemia and nephrotic range proteinuria. Patient is responding very well to IV Lasix, however because of her decreased by mouth intake secondary to diabetic gastroparesis, she has developed metabolic alkalosis. I am going to decrease the Lasix dose to 40 mg IV daily. Edema is significantly better. 3. Hypokalemia. It is secondary to IV diuretics and the patient inability to take oral potassium. I have ordered potassium chloride for 10 mEq IV times three doses. 4. Hypertension. Blood pressure is acceptable at this time. Continue lisinopril 10 mg daily. Amlodipine has been stopped. 5. Iron deficiency anemia. Patient continues to be on oral iron. Hemoglobin continues to improve. No need of blood transfusion at this time. 6. Insulin dependent diabetes mellitus. Continue current dose of Levemir and insulin sliding scale as per primary team. Patient reports that she is listed for a pancreatic transplant. I have requested the records from [facility]. 7. Hyponatremia. I have decreased her Lasix dose to 40 mg IV daily.
[2017-10-21 14:00] VITALS: BP 101/64
[2017-10-21] MEDS: MORPHINE 4 MG/ML 1ML SYRINGE IV PRN ×2 (14:25→20:54)
[2017-10-21] MEDS ORDERED: KCL 10MEQ IN STERILE WATER 100ML As Ordered ONE (16:19)
[2017-10-21] MEDS: KCL 10MEQ IN 100ML SWI (KRUN) 10 MEQ in APPROPRIATE DILUENT 1 EA IV SCH ×4 (16:24→17:30)
[2017-10-21] MEDS: GABAPENTIN 300 MG CAP PO SCH (17:29)
[2017-10-21] MEDS ORDERED: FUROSEMIDE 40 MG/4 ML VIAL (J1940) IV SCH (20:00)
[2017-10-21] MEDS: LEVEMIR (INSULIN DETEMIR) 1 UNITS/0.01ML SC SCH (20:45)
[2017-10-21] MEDS: GABAPENTIN 400 MG CAP PO SCH (21:00)
[2017-10-21] MEDS: CitaloPRAM (CeleXA) 10 MG TABLET PO SCH (21:00)
[2017-10-21 22:00] VITALS: BP 159/97
--- NOTE | 2017-10-22 01:06 | ECGEPIP ---
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
[2017-10-22] MEDS: PROCHLORPERAZINE 10 MG/2 ML VIAL (J0780) IV PRN (01:46)
[2017-10-22] MEDS: SUCRALFATE SUSP 1GM/10ML UD PO SCH ×4 (04:47→23:11)
[2017-10-22] MEDS: SODIUM CHLORIDE 0.9% INJ 10 ML SYR IV SCH ×2 (04:48→17:44)
[2017-10-22] MEDS: MORPHINE 4 MG/ML 1ML SYRINGE IV PRN ×3 (05:03→17:46)
[2017-10-22 05:06] LABS: BASO % 0.6 % (0.0-1.0); EOS # 0.2 10^3/uL (0.0-0.50); EOS % 3.5 % (0.0-3.0); IMMATURE GRANULOCYTE % 0.9 % (0-0); LYMPH # 1.7 10^3/uL (1.5-6.5); LYMPH % 25.2 % (24.0-44.0); MEAN CORPUSCULAR HEMOGLOBIN 25.8 pg (27.0-33.0); MEAN CORPUSCULAR HGB CONC 32.4 g/dl (32.0-36.5); MEAN CORPUSCULAR VOLUME 79.6 fl (80.0-96.0); MONO # 0.9 10^3/uL (0.0-0.8); MONO % 13.3 % (0.0-5.0); NEUTROPHILS # 3.9 10^3/uL (1.8-7.7); NEUTROPHILS % 56.5 % (36.0-66.0); PLATELET COUNT, AUTOMATED 491 10^3/uL (150-450); RED CELL DISTRIBUTION WIDTH 13.8 % (11.5-14.5); WHITE BLOOD COUNT 6.9 10^3/uL (4.0-10.0)
[2017-10-22 05:22] LABS: ANION GAP 8 MEQ/L (8-16); BLOOD UREA NITROGEN 10 MG/DL (7-18); CALCIUM LEVEL 8.5 MG/DL (8.5-10.1); CARBON DIOXIDE LEVEL 34 MEQ/L (21-32); CHLORIDE LEVEL 91 MEQ/L (98-107); CREATININE FOR GFR 0.89 MG/DL (0.55-1.02); GLOMERULAR FILTRATION RATE > 60.0 (>60); GLUCOSE, FASTING 143 MG/DL (70-105); POTASSIUM SERUM 3.5 MEQ/L (3.5-5.1); SODIUM LEVEL 133 MEQ/L (136-145)
[2017-10-22 06:00] VITALS: BP 127/85
[2017-10-22] MEDS: HumaLOG INSULIN (NovoLOG) PER UNIT SC SCH ×4 (07:30→21:00)
[2017-10-22 07:32] LABS: MAGNESIUM LEVEL 1.9 MG/DL (1.8-2.4)
[2017-10-22] MEDS: ONDANSETRON 4MG/2ML VIAL (J2405) IV PRN (08:13)
[2017-10-22] MEDS: FUROSEMIDE 40 MG/4 ML VIAL (J1940) IV SCH (08:14)
[2017-10-22] MEDS: PANTOPRAZOLE 40MG INJ (PROTONIX) (C9113) IV SCH (08:14)
[2017-10-22] MEDS: BISACODYL 5 MG TAB PO SCH (08:44)
[2017-10-22] MEDS: FERROUS SULFATE 325MG TAB PO SCH (08:44)
[2017-10-22] MEDS: SPIRONOLACTONE 25 MG TAB PO SCH (08:44)
[2017-10-22] MEDS: ASCORBIC ACID 250 MG TAB PO SCH (08:45)
[2017-10-22] MEDS: POTASSIUM CHLORIDE 10 MEQ SR TABLET PO SCH (08:45)
[2017-10-22] MEDS: MIRALAX *UNIT DOSE* 17GM PACKET PO SCH ×2 (08:45→21:25)
[2017-10-22] MEDS: SENOKOT S TAB PO SCH (08:45)
[2017-10-22] MEDS: LISINOPRIL 10 MG TAB PO SCH (08:45)
[2017-10-22] MEDS: METOCLOPRAMIDE INJ 10MG/2ML VIAL (J2765) IV SCH ×2 (11:12→18:10)
[2017-10-22] MEDS: KCL 10MEQ IN 100ML SWI (KRUN) 10 MEQ in APPROPRIATE DILUENT 1 EA IV SCH ×4 (11:12→12:07)
--- NOTE | 2017-10-22 13:15 | IPNPDOC ---
Subjective Date Seen The patient was seen on 10/22/17. Subjective Chief Complaint/HPI The patient is a 27-year-old female admitted with a reason for visit of Upper Gastrointestinal Bleed. Events since last encounter Patient seen and examined at the bedside. States that she is still feeling nauseous when she is trying to take anything by mouth. Denies any abdominal pain at this time, but does note that it returns when she is trying to eat. Reports that she is passing flatus, and had a bowel movement yesterday. Denies any acute overnight events at this time. Objective Physical Examination General Exam: Positive: Alert, Cooperative, No Acute Distress ENT Exam: Positive: Atraumatic, Mucous membr. moist/pink Chest Exam: Positive: Clear to auscultation, Normal air movement Heart Exam: Positive: Rate Normal, Normal S1, Normal S2 Abdomen Exam: Positive: Soft, Negative: Tenderness Extremity Exam: Positive: Other (Right BKA) Psych Exam: Positive: Oriented x 3 Assessment /Plan Plan/VTE VTE Prophylaxis Ordered?: Yes Plan Anasarca 2/2 Nephrotic Range Proteinuria likely from underlying Diabetic Nephropathy Echocardiogram reviewed normal EF and diastolic function Nephrotic range proteinuria with hypoalbuminemia, also evident from previous work up at [facility] Patient achieving adequate diuresis here, with a net negative for 11L achieved here according to I/O's Weight decreased from 86kg to 75.4kg according to records Continue with Lasix 40mg IV daily, PO Aldactone, Lisinopril as per Nephro Atorvastatin added to regimen, Lipid Panel noted Further work up for nephrotic proteinuria unrevealing thus far Appreciate nephrology input Nausea/Vomiting 2/2 Gastroparesis from underlying Diabetes Cont Zofran, Compazine prn Reglan q8h standing dose added to regimen Coffee-ground emesis H&H stable Gastroenterology input noted-->EGD on 10/20/17 showed distal esophagitis Continue with Protonix and Sucralfate. Continue gastroparesis diet. Iron deficiency anemia Cont Ferrous sulfate H&H stable Elevated troponin level likely 2/2 Cardiac Strain from Anasarca, Fluid Overload Patient w/o complaints of chest pain No active signs of ischemia on EKG We will cont to monitor Diabetes mellitus with diabetic neuropathy, gastroparesis, and nephropathy Reduced dose of long-acting insulin (Levemir 30 units daily) Lispro as per sliding scale Depression and Insomnia Continue with celexa Right BKA with chronic stump ulcer. Hypertension Cont Regimen as ordered Hyperlipidemia Continue statin DVT Prophylaxis Lovenox SC Poor Jail Prognosis Discussed case with patient and her friend extensively at the bedside. All questions answered to their satisfaction. Disposition--pending clinical improvement, PFS on board for possible homecare referral on D/C. VS, I&O, 24H, Fishbone Vital Signs/I&O Vital Signs Date Time Temp Pulse Resp B/P (MAP) Pulse Ox O2 Delivery O2 Flow Rate FiO2 10/22/17 11:21 18 10/22/17 06:00 97.3 100 127/85 (99) 100 Nasal Cannula 4.0 I&O- Last 24 Hours up to 6 AM 10/23/17 06:00 Intake Total 50 ml Output Total 0 ml Balance 50 ml Laboratory Data 24H LABS Laboratory Tests 2 10/21/17 16:57: Bedside Glucose (Misc Panel) 114H 10/21/17 20:29: Bedside Glucose (Misc Panel) 99 10/22/17 04:46: Immature Granulocyte % (Auto) 0.9H, White Blood Count 6.9, Red Blood Count 4.07 , Hemoglobin 10.5L, Hematocrit 32.4L, Mean Corpuscular Volume 79.6L, Mean Corpuscular Hemoglobin 25.8L, Mean Corpuscular Hemoglobin Concent 32.4, Red Cell Distribution Width 13.8, Platelet Count 491H, Neutrophils (%) (Auto) 56.5, Lymphocytes (%) (Auto) 25.2, Monocytes (%) (Auto) 13.3H, Eosinophils (%) (Auto) 3.5H, Basophils (%) (Auto) 0.6, Neutrophils # (Auto) 3.9, Lymphocytes # (Auto) 1.7, Monocytes # (Auto) 0.9H, Eosinophils # (Auto) 0.2, Basophils # (Auto) 0.0, Immature Granulocyte # (Auto) 0.1H, Nucleated Red Blood Cells % (auto) 0.0, Anion Gap 8, Glomerular Filtration Rate > 60.0, Blood Urea Nitrogen 10, Creatinine 0.89, Sodium Level 133L, Potassium Level 3.5, Chloride Level 91L, Carbon Dioxide Level 34H, Calcium Level 8.5, Magnesium Level 1.9 CBC/BMP Laboratory Tests 10/21/17 18:46 10/22/17 04:46 Red Blood Count 4.07, Mean Corpuscular Volume 79.6 L, Mean Corpuscular Hemoglobin 25.8 L, Mean Corpuscular Hemoglobin Concent 32.4, Red Cell Distribution Width 13.8, Neutrophils (%) (Auto) 56.5, Lymphocytes (%) (Auto) 25.2, Monocytes (%) (Auto) 13.3 H, Eosinophils (%) (Auto) 3.5 H, Basophils (%) ( Auto) 0.6, Neutrophils # (Auto) 3.9, Lymphocytes # (Auto) 1.7, Monocytes # (Auto ) 0.9 H, Eosinophils # (Auto) 0.2, Basophils # (Auto) 0.0, Calcium Level 8.5 Microbiology Microbiology 10/18/17 Blood Culture - Preliminary, Resulted No Growth after 72 hours. All specime... 10/18/17 Blood Culture - Preliminary, Resulted No Growth after 72 hours. All specime... 10/19/17 Urine Culture - Final, Complete AMARILIS LUU MD Oct 22, 2017 13:15
[2017-10-22 14:00] VITALS: BP 140/85
[2017-10-22] MEDS: ATORVASTATIN 20 MG TAB PO SCH (14:12)
[2017-10-22] MEDS: ENOXAPARIN 40 MG/0.4 ML SYRINGE (J1650) SC SCH (14:12)
[2017-10-22 14:14] LABS: ANTI RIBOSOMAL ANTIBODIES <0.2 AI (0.0-0.9); COMPLEMENT TOTAL (CH50) > 63 U/mL (42-60)
[2017-10-22] MEDS: GABAPENTIN 300 MG CAP PO SCH (17:43)
[2017-10-22] MEDS: SODIUM CHLORIDE 0.9% INJ 10 ML SYR IV PRN (18:10)
[2017-10-22] MEDS: LEVEMIR (INSULIN DETEMIR) 1 UNITS/0.01ML SC SCH (21:00)
[2017-10-22] MEDS: GABAPENTIN 400 MG CAP PO SCH (21:25)
[2017-10-22] MEDS: CitaloPRAM (CeleXA) 10 MG TABLET PO SCH (21:25)
--- NOTE | 2017-10-22 21:57 | IPN ---
DATE: 10/22/2017 SUBJECTIVE: Patient was seen and examined at the bedside today morning. Patient reports that she continues to be nauseated. She is unable to take anything. She is even refusing some of her medications. She is otherwise hemodynamically stable. Renal function is also stable at baseline. Edema continues to improve. REVIEW OF SYSTEMS: Patient denies any fever, chills, or rigors. She denies any chest pain or shortness of breath. She does report nausea, pain epigastrium, decreased appetite and vomiting. The rest of review of systems is negative. OBJECTIVE: VITAL SIGNS: Temperature is 98.1 degrees Fahrenheit, blood pressure is 140/85, pulse is 96, respiratory rate of 20, saturating 98% on nasal cannula at 4 liters. INTAKE AND OUTPUT: Urine output recorded yesterday is 2.9 liters. Urine output recorded today so far is 125 mL. Weight on the bed scale is 75.4 kg. PHYSICAL EXAMINATION: GENERAL: Patient is awake, alert and oriented times three. Laying in bed in no apparent distress. HEAD/NECK: Extraocular muscles intact. Pupils equally, round and reactive to light. Mucous membranes are moist. Neck is supple. There is no jugular venous distention (JVD). CARDIOVASCULAR: S1, S2, regular rate. Very trace edema of the lower extremity. RESPIRATORY: Chest is clear to auscultation bilaterally. Bilateral equal air entry. No rales or rhonchi. ABDOMEN: Soft. Mildly tender to deep palpation in the epigastrium. Otherwise, no organomegaly. MUSCULOSKELETAL: Patient has a right below knee amputation. Patient has left second toe amputation as well. Very trace edema of the left extremity. 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 Power is 5/5 in bilateral upper extremities. PSYCH: Normal mood and affect. LAB REVIEW: CBC showed a WBC of 6.9, hemoglobin 10.5, platelets are 491. BMP showed sodium 133, potassium 3.5, chloride 91, bicarbonate is 34, BUN 10, creatinine 0.89, calcium 8.5, magnesium 1.9. IMMUNOLOGY: Rheumatoid factor is negative. EILEEN screen is negative. ANCA levels are negative. Anti double standard DNA antibodies negative. Antiribosomal antibody negative. Complement levels are normal and CH50 is high. Hepatitis B and C antibodies are negative. EILEEN, ANCA, rjky-cjridf-ttepcdqg DNA, antiribosomal antibody are all pending. C3 and C4 within normal range. CH-50 is also pending. Hepatitis B and hepatitis C panel is also pending. CURRENT INPATIENT MEDICATIONS: The patient's medications were all reviewed by me. Lasix dose has been decreased to 40 mg IV daily. Potassium chloride by mouth has been stopped because she is not taking it. Patent was given two runs of potassium chloride IV times two today and she has been started on Reglan 5 mg IV every 8 hourly. ASSESSMENT: 27-year-old female with past medical history of insulin dependent diabetes since age 14, hypertension, diabetic gastroparesis, nephrotic range proteinuria, reflux esophagitis, and diabetic gastroparesis admitted this time because of anasarca and pain epigastrium. PLAN: 1. Nephrotic range proteinuria. I reviewed patient's records from [facility] inpatient and from nephrology follow up at [facility]. Nephrotic range proteinuria has been attributed to uncontrolled diabetes. Patient never got a biopsy, she was prescribed rwldjbobkhq-dspvfhtlvy-amoeqf (JYOTI) inhibitor in the past but they were later on stopped because she wanted to get and she was advised to take diltiazem. Patient is likely unable to take any medications at this time because of persistent pain because of diabetic gastroparesis. At this time, I would not do any renal biopsy of this patient. Continue to optimize her edema and continue the gglhqdgfbrk-nqncbpqbin-qsyjqh (JYOTI) inhibitor if patient can tolerate. 2. Anasarca. Patient's edema is getting better with IV Lasix. He was getting metabolic ankylosis so I decreased her Lasix dose to 40 mg IV daily. Volume status is optimized. Volume status is optimized. 3. Hypokalemia. Patient was unable to take any potassium by mouth. She was given IV potassium yesterday. Potassium is improved to 3.5 today. Continue to monitor for now and replete potassium with IV KCL. 4. Hypertension. Blood pressure is acceptable at this time. Continue current dose of lisinopril 10 mg daily to help with hypertension and proteinuria. 5. Iron deficiency anemia. Hemoglobin is 10.5 which is optimized. Continue oral iron. 6. Hyponatremia. Hyponatremia is mild. Continue current dose of Lasix 40 mg IV daily.
[2017-10-22 22:00] VITALS: BP 162/94
[2017-10-22] MEDS ORDERED: ACETAMINOPHEN TAB 650MG DOSE (2X325MG) PO ONE (22:45)
[2017-10-23] MEDS: METOCLOPRAMIDE INJ 10MG/2ML VIAL (J2765) IV SCH ×3 (03:08→18:18)
[2017-10-23] MEDS: MORPHINE 4 MG/ML 1ML SYRINGE IV PRN ×2 (03:09→09:27)
[2017-10-23] MEDS: SODIUM CHLORIDE 0.9% INJ 10 ML SYR IV SCH ×2 (05:54→17:44)
[2017-10-23] MEDS: SUCRALFATE SUSP 1GM/10ML UD PO SCH ×3 (05:55→17:43)
[2017-10-23 06:00] VITALS: BP 111/65
[2017-10-23 06:23] LABS: BASO # 0.1 10^3/uL (0.0-0.2); BASO % 0.8 % (0.0-1.0); EOS # 0.2 10^3/uL (0.0-0.50); EOS % 3.4 % (0.0-3.0); IMMATURE GRANULOCYTE % 0.6 % (0-0); LYMPH # 1.7 10^3/uL (1.5-6.5); LYMPH % 25.3 % (24.0-44.0); MEAN CORPUSCULAR HEMOGLOBIN 26.2 pg (27.0-33.0); MEAN CORPUSCULAR VOLUME 79.3 fl (80.0-96.0); MONO % 14.6 % (0.0-5.0); NEUTROPHILS # 3.6 10^3/uL (1.8-7.7); NEUTROPHILS % 55.3 % (36.0-66.0); PLATELET COUNT, AUTOMATED 478 10^3/uL (150-450); RED CELL DISTRIBUTION WIDTH 13.7 % (11.5-14.5); WHITE BLOOD COUNT 6.5 10^3/uL (4.0-10.0)
[2017-10-23 06:41] LABS: ANION GAP 3 MEQ/L (8-16); BLOOD UREA NITROGEN 12 MG/DL (7-18); CALCIUM LEVEL 8.5 MG/DL (8.5-10.1); CARBON DIOXIDE LEVEL 36 MEQ/L (21-32); CHLORIDE LEVEL 93 MEQ/L (98-107); CREATININE FOR GFR 0.96 MG/DL (0.55-1.02); GLOMERULAR FILTRATION RATE > 60.0 (>60); GLUCOSE, FASTING 88 MG/DL (70-105); POTASSIUM SERUM 3.6 MEQ/L (3.5-5.1); SODIUM LEVEL 132 MEQ/L (136-145)
[2017-10-23] MEDS: HumaLOG INSULIN (NovoLOG) PER UNIT SC SCH ×4 (07:26→20:34)
[2017-10-23] MEDS: MIRALAX *UNIT DOSE* 17GM PACKET PO SCH ×2 (09:00→20:35)
[2017-10-23] MEDS: SENOKOT S TAB PO SCH (09:00)
[2017-10-23] MEDS: FERROUS SULFATE 325MG TAB PO SCH (09:00)
[2017-10-23] MEDS: BISACODYL 5 MG TAB PO SCH (09:00)
[2017-10-23] MEDS: TORSEMIDE 10 MG TABLET PO SCH (09:00)
[2017-10-23] MEDS: ASCORBIC ACID 250 MG TAB PO SCH (09:00)
[2017-10-23] MEDS: ATORVASTATIN 20 MG TAB PO SCH (09:00)
--- NOTE | 2017-10-23 09:00 | REP ---
Procedure: PICC line insertion with Salas-Wily The procedure was performed under the direct supervision of Dr. Rae. The risks and benefits of the procedure were explained to the patient and informed consent was obtained. The right basilic vein was localized using ultrasound guidance. The skin was prepped and draped in a sterile fashion. 2% lidocaine was used as a local anesthetic. Using ultrasound guidance the basilic vein was cannulated and a 0.018 guidewire was inserted and advanced to the SVC using fluoroscopic guidance. The needle was removed and a 5.5 Lao dilator and peel-away sheath was inserted over the guide wire. A 5.5 Lao dual lumen catheter was cut to length of 36 cm. The dilator was removed and the catheter was inserted over the guide wire with the tip ending in the SVC. The peel-away sheath was removed and the catheter was flushed with heparinized saline as per Hospital protocol. The catheter was affixed to the skin and a sterile dressing was applied. The the patient tolerated the procedure well and there were no immediate complications. 0.3 minutes of fluoro time was utilized for this procedure. Reviewed by MARY Cohn 10/21/2017 04:08 PSigned by Marlo Rae MD 10/23/2017 08:50 A
[2017-10-23] MEDS: FUROSEMIDE 40 MG/4 ML VIAL (J1940) IV SCH (09:26)
[2017-10-23] MEDS: PANTOPRAZOLE 40MG INJ (PROTONIX) (C9113) IV SCH (09:26)
[2017-10-23] MEDS: SPIRONOLACTONE 25 MG TAB PO SCH (09:27)
[2017-10-23] MEDS: ENOXAPARIN 40 MG/0.4 ML SYRINGE (J1650) SC SCH (09:27)
[2017-10-23] MEDS: LISINOPRIL 10 MG TAB PO SCH (09:30)
--- NOTE | 2017-10-23 12:20 | IPNPDOC ---
Subjective Date Seen The patient was seen on 10/23/17. Subjective Chief Complaint/HPI The patient is a 27-year-old female admitted with a reason for visit of Upper Gastrointestinal Bleed. Events since last encounter Patient seen and examined at the bedside. States that she is feeling depressed, and does note that this has affected her eating habits. She does report hopelessness given her advanced diabetes, and multiple readmissions recently. Denies any suicidal/homicidal ideations. Psychiatry has been consulted. Objective Physical Examination General Exam: Positive: Alert, Cooperative, No Acute Distress ENT Exam: Positive: Atraumatic, Mucous membr. moist/pink Chest Exam: Positive: Clear to auscultation, Normal air movement Heart Exam: Positive: Rate Normal, Normal S1, Normal S2 Abdomen Exam: Positive: Soft, Negative: Tenderness Extremity Exam: Positive: Other (Right BKA) Psych Exam: Positive: Oriented x 3 Assessment /Plan Plan/VTE VTE Prophylaxis Ordered?: Yes Plan Anasarca 2/2 Nephrotic Range Proteinuria likely from underlying Diabetic Nephropathy Echocardiogram reviewed normal EF and diastolic function Nephrotic range proteinuria with hypoalbuminemia, also evident from previous work up at [facility] Patient achieving adequate diuresis here, with a net negative fluid balances achieved here Continue with PO Torsemide, Aldactone, Lisinopril as per Nephro Atorvastatin added to regimen, Lipid Panel noted Further work up for nephrotic proteinuria unrevealing thus far Appreciate nephrology input Depression Patient does report symptoms and feelings of depression, which she notes has related to her decreased appetite. Her family/friend has also voiced concerns about the patient's depression given recent personal events and recurrent hospitalizations. Continue Celexa Psychiatry consulted Nausea/Vomiting 2/2 Gastroparesis from underlying Diabetes Cont Zofran, Compazine prn, Reglan q8h Patient did request eating vallejo, eggs, and toast this morning--I have instructed the nursing staff to try and get her this meal, and I have advised the patient to eat small portions as tolerated. Coffee-ground emesis H&H stable Gastroenterology input noted-->EGD on 10/20/17 showed distal esophagitis Continue with Protonix and Sucralfate. Continue gastroparesis diet. Iron deficiency anemia Cont Ferrous sulfate H&H stable Elevated troponin level likely 2/2 Cardiac Strain from Anasarca, Fluid Overload Patient w/o complaints of chest pain No active signs of ischemia on EKG We will cont to monitor Diabetes mellitus with diabetic neuropathy, gastroparesis, and nephropathy Reduced dose of long-acting insulin (Levemir 30 units daily) Lispro as per sliding scale Depression and Insomnia Continue with celexa Right BKA with chronic stump ulcer. Hypertension Cont Regimen as ordered Hyperlipidemia Continue statin DVT Prophylaxis Lovenox SC Poor Assistant City Attorney Prognosis Dispo--pending clinical improvement. VS, I&O, 24H, Fishbone Vital Signs/I&O Vital Signs Date Time Temp Pulse Resp B/P (MAP) Pulse Ox O2 Delivery O2 Flow Rate FiO2 10/23/17 10:31 Nasal Cannula 3.0 10/23/17 09:37 18 10/23/17 09:30 148/86 10/23/17 06:00 97.0 85 96 I&O- Last 24 Hours up to 6 AM 10/24/17 06:00 Intake Total 360 ml Output Total 0 ml Balance 360 ml Laboratory Data 24H LABS Laboratory Tests 2 10/22/17 16:40: Bedside Glucose (Misc Panel) 129H 10/22/17 21:23: Bedside Glucose (Misc Panel) 122H 10/23/17 06:02: Immature Granulocyte % (Auto) 0.6H, White Blood Count 6.5, Red Blood Count 3.97L , Hemoglobin 10.4L, Hematocrit 31.5L, Mean Corpuscular Volume 79.3L, Mean Corpuscular Hemoglobin 26.2L, Mean Corpuscular Hemoglobin Concent 33.0, Red Cell Distribution Width 13.7, Platelet Count 478H, Neutrophils (%) (Auto) 55.3, Lymphocytes (%) (Auto) 25.3, Monocytes (%) (Auto) 14.6H, Eosinophils (%) (Auto) 3.4H, Basophils (%) (Auto) 0.8, Neutrophils # (Auto) 3.6, Lymphocytes # (Auto) 1.7, Monocytes # (Auto) 1.0H, Eosinophils # (Auto) 0.2, Basophils # (Auto) 0.1, Immature Granulocyte # (Auto) 0.0, Nucleated Red Blood Cells % (auto) 0.0, Anion Gap 3L, Glomerular Filtration Rate > 60.0, Blood Urea Nitrogen 12, Creatinine 0.96, Sodium Level 132L, Potassium Level 3.6, Chloride Level 93L, Carbon Dioxide Level 36H, Calcium Level 8.5 CBC/BMP Laboratory Tests 10/23/17 06:02 Red Blood Count 3.97 L, Mean Corpuscular Volume 79.3 L, Mean Corpuscular Hemoglobin 26.2 L, Mean Corpuscular Hemoglobin Concent 33.0, Red Cell Distribution Width 13.7, Neutrophils (%) (Auto) 55.3, Lymphocytes (%) (Auto) 25.3, Monocytes (%) (Auto) 14.6 H, Eosinophils (%) (Auto) 3.4 H, Basophils (%) ( Auto) 0.8, Neutrophils # (Auto) 3.6, Lymphocytes # (Auto) 1.7, Monocytes # (Auto ) 1.0 H, Eosinophils # (Auto) 0.2, Basophils # (Auto) 0.1, Calcium Level 8.5 Microbiology Microbiology 10/18/17 Blood Culture - Preliminary, Resulted No Growth after 72 hours. All specime... 10/18/17 Blood Culture - Preliminary, Resulted No Growth after 72 hours. All specime... 10/19/17 Urine Culture - Final, Complete AMARILIS LUU MD Oct 23, 2017 12:19
[2017-10-23 14:00] VITALS: BP 131/69
[2017-10-23] MEDS ORDERED: diphenhydrAMINE 25 MG CAP PO ONE (15:00)
[2017-10-23] MEDS ORDERED: FLUCONAZOLE 50MG TABLET PO ONE (15:30)
[2017-10-23] MEDS: GABAPENTIN 300 MG CAP PO SCH (15:57)
[2017-10-23] MEDS: CitaloPRAM (CeleXA) 10 MG TABLET PO SCH (20:34)
[2017-10-23] MEDS: GABAPENTIN 400 MG CAP PO SCH (20:34)
[2017-10-23] MEDS: LEVEMIR (INSULIN DETEMIR) 1 UNITS/0.01ML SC SCH (20:35)
[2017-10-23] MEDS ORDERED: IRON SUCROSE 100MG 5ML VIAL (J1756 PER 1MG) IV SCH (21:45)
[2017-10-23 22:00] VITALS: BP 117/74
[2017-10-24] VITALS (10 sets, daily range): BP systolic 122–162; BP diastolic 66–86
[2017-10-24] MEDS ORDERED: IRON SUCROSE 25 MG in NS 50 ML IV ONE (00:30)
[2017-10-24] MEDS ORDERED: IRON SUCROSE 175 MG in NS 100 ML IV ONE (01:00)
[2017-10-24] MEDS: METOCLOPRAMIDE INJ 10MG/2ML VIAL (J2765) IV SCH ×2 (03:01→11:17)
[2017-10-24] MEDS: SUCRALFATE SUSP 1GM/10ML UD PO SCH ×4 (05:16→18:00)
[2017-10-24] MEDS: SODIUM CHLORIDE 0.9% INJ 10 ML SYR IV SCH ×2 (05:16→18:23)
--- NOTE | 2017-10-24 05:27 | IPN ---
DATE: 10/23/2017 SUBJECTIVE: The patient was seen and examined at the bedside today morning. The patient reports that her nausea is better. She was able to keep her breakfast down. She was started on Reglan injections yesterday. She is responding well to Reglan. The patient is hemodynamically stable. Her renal function is stable. Her edema is significantly improving as well. REVIEW OF SYSTEMS: The patient denies any fevers, chills, rigors. She denies any chest pain, shortness of breath. She reports her pain epigastrium is improving. Her nausea is getting better as well. She denies lower extremity edema. Rest of review of systems is negative. OBJECTIVE: VITAL SIGNS: Temperature is 97.5 degrees Fahrenheit, blood pressure is 131/69, pulse is 85, respiratory rate of 18, saturating 96% on nasal cannula at three liters. INTAKE AND OUTPUT: Urine output recorded as one liter yesterday, 350 mL so far today since overnight. PHYSICAL EXAMINATION: GENERAL: The patient is awake, alert, and oriented times three, lying in bed no apparent distress. HEAD/NECK: Extraocular muscles intact. Pupils equal, round, and reactive to light. Mucous membranes are moist. Neck is supple. There is no jugular venous distention (JVD). CARDIOVASCULAR: S1, S2. Regular rate. No murmur, rub, or gallop. Trace edema of the left lower extremity. RESPIRATORY: Chest is clear to auscultation bilaterally. Bilateral equal air entry. No rales or rhonchi. ABDOMEN: Soft, very mildly tender to deep palpation in the epigastrium. Otherwise, no organomegaly. MUSCULOSKELETAL: The patient has right below-knee amputation. She has left second toe amputation, and she has trace edema of the left lower extremity. 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 Power is 5/5 in bilateral upper extremities. PSYCHIATRIC: The patient has depressed mood and not interested in communication. LABORATORY DATA: CBC showed a WBC 6.5, hemoglobin 10.4, platelets are 478. BMP showed sodium 132, potassium 3.6, chloride 93, bicarbonate 36, BUN 12, creatinine 0.96. CURRENT INPATIENT MEDICATIONS: The patient's medications are all reviewed by me. She was started on torsemide 10 mg by mouth daily starting today. Intravenous (IV) Lasix has been stopped. She continues to be on spironolactone 25 mg in the morning. She continues on Reglan 5 mg IV every eight hours. ASSESSMENT: A 27-year-old female with past medical history of insulin-dependent diabetes since age 14, hypertension, diabetic gastroparesis, nephrotic range proteinuria, reflux esophagitis, admitted this time because of anasarca, pain epigastrium, and upper gastrointestinal (GI) bleed. PLAN: 1. Nephrotic range proteinuria: The patient's autoimmune serology has been negative so far. She already follows up with nephrology at [facility], and nephrotic range proteinuria was attributed to diabetic nephropathy. Continue current dose of lisinopril. 2. Anasarca: The patient's edema is significantly better. She was getting alkalotic. IV Lasix was stopped. Patient is on torsemide 10 mg daily. If needed, dose will be adjusted. Continue current dose of spironolactone. 3. Hyponatremia: Sodium is fluctuating around 132-133. Okay to continue current dose of diuretics. 4. Hypertension: Blood pressure is acceptable at this time. Continue current dose of lisinopril 10 mg daily. 5. Iron-deficiency anemia: I am going to give the patient IV iron during this hospitalization to optimize her iron stores.
[2017-10-24 05:36] LABS: BASO # 0.1 10^3/uL (0.0-0.2); BASO % 0.7 % (0.0-1.0); EOS # 0.2 10^3/uL (0.0-0.50); EOS % 2.3 % (0.0-3.0); IMMATURE GRANULOCYTE % 0.7 % (0-0); LYMPH # 1.8 10^3/uL (1.5-6.5); LYMPH % 24.8 % (24.0-44.0); MEAN CORPUSCULAR HEMOGLOBIN 25.9 pg (27.0-33.0); MEAN CORPUSCULAR HGB CONC 33.1 g/dl (32.0-36.5); MEAN CORPUSCULAR VOLUME 78.2 fl (80.0-96.0); MONO # 0.9 10^3/uL (0.0-0.8); MONO % 11.7 % (0.0-5.0); NEUTROPHILS # 4.4 10^3/uL (1.8-7.7); NEUTROPHILS % 59.8 % (36.0-66.0); PLATELET COUNT, AUTOMATED 471 10^3/uL (150-450); RED CELL DISTRIBUTION WIDTH 13.6 % (11.5-14.5); WHITE BLOOD COUNT 7.3 10^3/uL (4.0-10.0)
[2017-10-24 06:09] LABS: CREATININE FOR GFR 1.23 MG/DL (0.55-1.02)
[2017-10-24] MEDS: SPIRONOLACTONE 25 MG TAB PO SCH (09:00)
[2017-10-24] MEDS: MIRALAX *UNIT DOSE* 17GM PACKET PO SCH ×2 (09:00→21:08)
[2017-10-24] MEDS: SENOKOT S TAB PO SCH (09:15)
[2017-10-24] MEDS: FERROUS SULFATE 325MG TAB PO SCH (09:15)
[2017-10-24] MEDS: LISINOPRIL 10 MG TAB PO SCH (09:15)
[2017-10-24] MEDS: HumaLOG INSULIN (NovoLOG) PER UNIT SC SCH ×4 (09:15→21:00)
[2017-10-24] MEDS: ATORVASTATIN 20 MG TAB PO SCH (09:15)
[2017-10-24] MEDS: BISACODYL 5 MG TAB PO SCH (09:15)
[2017-10-24] MEDS: ASCORBIC ACID 250 MG TAB PO SCH (09:15)
[2017-10-24] MEDS: ENOXAPARIN 40 MG/0.4 ML SYRINGE (J1650) SC SCH (09:15)
[2017-10-24] MEDS: PANTOPRAZOLE 40MG INJ (PROTONIX) (C9113) IV SCH (09:15)
[2017-10-24] MEDS ORDERED: FERR1TAB8 PO (10:42)
[2017-10-24] MEDS ORDERED: ALDA25TA2 PO (10:42)
[2017-10-24] MEDS ORDERED: TORS10TA3 PO (10:42)
[2017-10-24] MEDS ORDERED: FLOM5CAP PO (10:42)
--- NOTE | 2017-10-24 11:48 | IPNPDOC ---
Subjective Date Seen The patient was seen on 10/24/17. Subjective Chief Complaint/HPI The patient is a 27-year-old female admitted with a reason for visit of Upper Gastrointestinal Bleed. Events since last encounter Patient seen and examined at the bedside. The patient was able to tolerate a by mouth diet over the last 24 hours, and upon seeing her this morning the patient was adamant about going home. However, the patient later this morning had an unwitnessed episode of emesis which she reported to the nursing staff. Denies any other acute complaints at this time. Objective Physical Examination General Exam: Positive: Alert, Cooperative, No Acute Distress ENT Exam: Positive: Atraumatic, Mucous membr. moist/pink Chest Exam: Positive: Clear to auscultation, Normal air movement Heart Exam: Positive: Rate Normal, Normal S1, Normal S2 Abdomen Exam: Positive: Soft, Negative: Tenderness Extremity Exam: Positive: Other (Right BKA) Psych Exam: Positive: Oriented x 3 Assessment /Plan Plan/VTE VTE Prophylaxis Ordered?: Yes Plan Anasarca 2/2 Nephrotic Range Proteinuria likely from underlying Diabetic Nephropathy Echocardiogram reviewed normal EF and diastolic function Nephrotic range proteinuria with hypoalbuminemia, also evident from previous work up at [facility] Patient achieving adequate diuresis here, with a net negative fluid balances achieved here Continue with PO Torsemide, Aldactone, Lisinopril as per Nephro Atorvastatin added to regimen, Lipid Panel noted Further work up for nephrotic proteinuria unrevealing thus far Appreciate nephrology input Elevation in Creatinine Serum Cr went up to 1.23 this AM--likely 2/2 urinary retention as the patient had her sauceda removed yesterday and was found to have a PVR >350 cc's this AM The patient did have straight catheterization done Flomax ordered We will cont to monitor Depression Continue current regimen Psychiatry consulted Nausea/Vomiting 2/2 Gastroparesis from underlying Diabetes Cont Zofran, Compazine prn, Reglan q8h Coffee-ground emesis H&H stable Gastroenterology input noted-->EGD on 10/20/17 showed distal esophagitis Continue with Protonix and Sucralfate. Continue gastroparesis diet. Iron deficiency anemia Cont Ferrous sulfate H&H stable Elevated troponin level likely 2/2 Cardiac Strain from Anasarca, Fluid Overload Patient w/o complaints of chest pain No active signs of ischemia on EKG We will cont to monitor Diabetes mellitus with diabetic neuropathy, gastroparesis, and nephropathy Reduced dose of long-acting insulin (Levemir 30 units daily) Lispro as per sliding scale Depression and Insomnia Continue with celexa Right BKA with chronic stump ulcer. Hypertension Cont Regimen as ordered Hyperlipidemia Continue statin DVT Prophylaxis Lovenox SC Poor Group Home Prognosis Dispo--pending clinical improvement. VS, I&O, 24H, Fishbone Vital Signs/I&O Vital Signs Date Time Temp Pulse Resp B/P (MAP) Pulse Ox O2 Delivery O2 Flow Rate FiO2 10/24/17 09:15 146/84 10/24/17 06:00 98.9 100 18 92 Room Air 10/23/17 21:00 2.0 Laboratory Data 24H LABS Laboratory Tests 2 10/23/17 17:01: Bedside Glucose (Misc Panel) 170H 10/23/17 19:57: Bedside Glucose (Misc Panel) 207H 10/24/17 05:21: Immature Granulocyte % (Auto) 0.7H, White Blood Count 7.3, Red Blood Count 3.67L , Hemoglobin 9.5L, Hematocrit 28.7L, Mean Corpuscular Volume 78.2L, Mean Corpuscular Hemoglobin 25.9L, Mean Corpuscular Hemoglobin Concent 33.1, Red Cell Distribution Width 13.6, Platelet Count 471H, Neutrophils (%) (Auto) 59.8, Lymphocytes (%) (Auto) 24.8, Monocytes (%) (Auto) 11.7H, Eosinophils (%) (Auto) 2.3, Basophils (%) (Auto) 0.7, Neutrophils # (Auto) 4.4, Lymphocytes # (Auto) 1.8, Monocytes # (Auto) 0.9H, Eosinophils # (Auto) 0.2, Basophils # (Auto) 0.1, Immature Granulocyte # (Auto) 0.1H, Nucleated Red Blood Cells % (auto) 0.0, Anion Gap 9, Glomerular Filtration Rate 55.0L, Blood Urea Nitrogen 17, Creatinine 1.23H, Sodium Level 131L, Potassium Level 4.0, Chloride Level 91L, Carbon Dioxide Level 31, Calcium Level 8.0L CBC/BMP Laboratory Tests 10/24/17 05:21 Red Blood Count 3.67 L, Mean Corpuscular Volume 78.2 L, Mean Corpuscular Hemoglobin 25.9 L, Mean Corpuscular Hemoglobin Concent 33.1, Red Cell Distribution Width 13.6, Neutrophils (%) (Auto) 59.8, Lymphocytes (%) (Auto) 24.8, Monocytes (%) (Auto) 11.7 H, Eosinophils (%) (Auto) 2.3, Basophils (%) ( Auto) 0.7, Neutrophils # (Auto) 4.4, Lymphocytes # (Auto) 1.8, Monocytes # (Auto ) 0.9 H, Eosinophils # (Auto) 0.2, Basophils # (Auto) 0.1, Calcium Level 8.0 L Microbiology Microbiology 10/18/17 Blood Culture - Final, Complete NO GROWTH AFTER 5 DAYS 10/18/17 Blood Culture - Final, Complete NO GROWTH AFTER 5 DAYS 10/19/17 Urine Culture - Final, Complete AMARILIS LUU MD Oct 24, 2017 11:48
[2017-10-24] MEDS ORDERED: REGL5TAB2 PO (11:49)
[2017-10-24] MEDS: MORPHINE 4 MG/ML 1ML SYRINGE IV PRN (12:48)
--- NOTE | 2017-10-24 13:08 | IPN ---
DATE: 10/24/2017 SUBJECTIVE: The patient was seen and examined at the bedside today morning. She was sitting in the wheelchair. She reported that she wants to go home. She is otherwise hemodynamically stable. Her Stokes catheter was removed yesterday. She reports difficulty with urination and there is a bump in her renal function as well. Creatinine has gone up to 1.23. REVIEW OF SYSTEMS: Patient denies any fevers, chills, rigors. She denies any chest pain, shortness of breath. She reports her pain in the abdomen and nausea is significantly better. She was able to keep her dinner done. She reports mild lower extremity edema and she also reports difficulty with urination and she reports it always happens to her after each Stokes catheterization that she has problem with urination. Rest of review of systems is negative. OBJECTIVE: VITAL SIGNS: Temperature is 98.9 degrees Fahrenheit, blood pressure is 142/68, pulse is 100, respiratory rate of 18, saturating 92% on room air. INTAKE AND OUTPUT: Urine output is not recorded well. Bedside weight is not available. PHYSICAL EXAMINATION: GENERAL: Patient is awake, alert, and oriented times three, lying in bed no apparent distress. HEAD/NECK: Extraocular muscles intact. Pupils equally round and reactive to light. Mucous membranes are moist. Neck is supple. There is no jugular venous distention (JVD). CARDIOVASCULAR: S1, S2. Regular rate. No murmur, rub, or gallop. There is trace edema of the left lower extremity. RESPIRATORY: Chest is clear to auscultation bilaterally. Bilateral equal air entry. No rales or rhonchi. ABDOMEN: Soft, nontender. No ascites. Bladder is palpable in the suprapubic region. MUSCULOSKELETAL: Patient has right below-knee amputation and she has left second toe amputation, and there is trace edema of the left lower extremity. 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 Power is 5/5 in bilateral upper extremities. PSYCHIATRIC: Patient has a normal mood and affect today. LABORATORY REVIEW: CBC showed a WBC 7.3, hemoglobin 9.5, platelets are 470. BMP today morning showed sodium 131, potassium 4, chloride 91, bicarbonate 31, BUN 17, creatinine 1.23, it was 0.9 yesterday. Calcium is 8. IMAGING: Bedside bladder scan done by me showed more than 350 mL of post void residual. CURRENT INPATIENT MEDICATIONS: The patient's medications are all reviewed by me. She was started on IV Venofer yesterday 200 mg q. 48 hours. She continues to be on torsemide 10 mg daily and spironolactone 25 mg by mouth in the morning, but these two medications were held today AM because of worsening renal functions. No other change in the medications today. ASSESSMENT: 27-year-old female with past medical history of insulin-dependent diabetes since age 14, hypertension, diabetic gastroparesis, nephrotic range proteinuria, reflux esophagitis, admitted this time because of anasarca, pain epigastrium, and possible upper gastrointestinal (GI) bleed. PLAN: 1. Nephrotic range proteinuria. Autoimmune serology are all negative so far. Mo likely she has diabetic nephropathy and she was not taking lisinopril in the past because she wanted to get . She has been started on lisinopril during this admission. Continue current dose of lisinopril. The rest of the proteinuria workup will be done as an outpatient if needed. 2. Anasarca. The patient's edema is significantly getting better. It is okay to continue torsemide 10 mg daily and spironolactone 25 mg by mouth daily until she follows up with us in the office within one week after discharge. 3. Hypervolemic hyponatremia. Continue current dose of diuretics. Sodium is fluctuating between 132-134. 4. Hypertension. Blood pressure is acceptable. Continue current dose of lisinopril 10 mg daily. 5. Iron-deficiency anemia. Patient was started on IV Venofer 200 mg q. 48 hourly. Patient has receive only one dose of Venofer and now she wants to go home. Continue the oral iron. 6. Acute kidney injury superimposed on chronic kidney disease stage II. The patient's creatinine has bumped up to 1.2. Most likely secondary to urinary retention. Recent start of lisinopril might have also contributed. Patient has received three doses of lisinopril so far; however, I will not stop the lisinopril at this time. We will check the patient's renal function as an outpatient and if the creatinine stays stable I will still continue the JYOTI inhibitor. 7. Urinary retention. Patient reports that she always has urinary retention every time she gets a Stokes catheter. The patient got a straight cath done today and she needs to be started on Flomax. DISPOSITION: All the patient's renal function is getting worse, she is adamant that she wants to go home. If the patient is discharge home she will need to followup with the nephrology service as an outpatient within one week after discharge from the hospital. TASH
[2017-10-24] MEDS: GABAPENTIN 300 MG CAP PO SCH (17:00)
[2017-10-24] MEDS: ONDANSETRON 4MG/2ML VIAL (J2405) IV PRN (18:23)
[2017-10-24] MEDS: LEVEMIR (INSULIN DETEMIR) 1 UNITS/0.01ML SC SCH (21:08)
[2017-10-24] MEDS: METOCLOPRAMIDE 5 MG TAB PO SCH (21:09)
[2017-10-24] MEDS: GABAPENTIN 400 MG CAP PO SCH (21:09)
[2017-10-24] MEDS: CitaloPRAM (CeleXA) 10 MG TABLET PO SCH (21:09)
[2017-10-25] MEDS: MORPHINE 4 MG/ML 1ML SYRINGE IV PRN ×3 (05:04→17:34)
[2017-10-25] MEDS: ONDANSETRON 4MG/2ML VIAL (J2405) IV PRN ×2 (05:04→17:34)
[2017-10-25] MEDS: METOCLOPRAMIDE 5 MG TAB PO SCH ×3 (05:47→22:00)
[2017-10-25] MEDS: SUCRALFATE SUSP 1GM/10ML UD PO SCH ×5 (05:47→23:40)
[2017-10-25] MEDS: SODIUM CHLORIDE 0.9% INJ 10 ML SYR IV SCH ×2 (05:49→17:34)
[2017-10-25 06:00] VITALS: BP 110/58
[2017-10-25 06:21] LABS: BASO # 0.1 10^3/uL (0.0-0.2); BASO % 0.6 % (0.0-1.0); EOS # 0.2 10^3/uL (0.0-0.50); EOS % 2.3 % (0.0-3.0); IMMATURE GRANULOCYTE % 0.5 % (0-0); LYMPH # 1.7 10^3/uL (1.5-6.5); LYMPH % 20.8 % (24.0-44.0); MEAN CORPUSCULAR HEMOGLOBIN 25.8 pg (27.0-33.0); MEAN CORPUSCULAR HGB CONC 32.1 g/dl (32.0-36.5); MEAN CORPUSCULAR VOLUME 80.3 fl (80.0-96.0); MONO # 0.8 10^3/uL (0.0-0.8); MONO % 9.9 % (0.0-5.0); NEUTROPHILS # 5.4 10^3/uL (1.8-7.7); NEUTROPHILS % 65.9 % (36.0-66.0); PLATELET COUNT, AUTOMATED 445 10^3/uL (150-450); RED CELL DISTRIBUTION WIDTH 13.9 % (11.5-14.5); WHITE BLOOD COUNT 8.2 10^3/uL (4.0-10.0)
[2017-10-25 06:41] LABS: ANION GAP 7 MEQ/L (8-16); BLOOD UREA NITROGEN 10 MG/DL (7-18); CALCIUM LEVEL 8.6 MG/DL (8.5-10.1); CARBON DIOXIDE LEVEL 33 MEQ/L (21-32); CHLORIDE LEVEL 99 MEQ/L (98-107); CREATININE FOR GFR 1.02 MG/DL (0.55-1.02); GLOMERULAR FILTRATION RATE > 60.0 (>60); GLUCOSE, FASTING 110 MG/DL (70-105); POTASSIUM SERUM 3.9 MEQ/L (3.5-5.1); SODIUM LEVEL 139 MEQ/L (136-145)
[2017-10-25] MEDS: HumaLOG INSULIN (NovoLOG) PER UNIT SC SCH ×4 (07:30→21:00)
[2017-10-25] MEDS ORDERED: METOCLOPRAMIDE INJ 10MG/2ML VIAL (J2765) IV ONE (08:30)
[2017-10-25] MEDS: PANTOPRAZOLE 40MG INJ (PROTONIX) (C9113) IV SCH (09:00)
[2017-10-25] MEDS: SODIUM CHLORIDE 0.9% INJ 10 ML SYR IV PRN (09:01)
[2017-10-25] MEDS: ENOXAPARIN 40 MG/0.4 ML SYRINGE (J1650) SC SCH (09:15)
[2017-10-25] MEDS: SPIRONOLACTONE 25 MG TAB PO SCH ×2 (09:15→10:25)
[2017-10-25] MEDS: TORSEMIDE 10 MG TABLET PO SCH ×2 (09:15→10:25)
[2017-10-25] MEDS: ATORVASTATIN 20 MG TAB PO SCH (10:25)
[2017-10-25] MEDS: ASCORBIC ACID 250 MG TAB PO SCH (10:26)
[2017-10-25] MEDS: LISINOPRIL 10 MG TAB PO SCH (10:26)
[2017-10-25] MEDS: FERROUS SULFATE 325MG TAB PO SCH (10:26)
[2017-10-25] MEDS: MIRALAX *UNIT DOSE* 17GM PACKET PO SCH ×2 (10:27→21:00)
[2017-10-25] MEDS: BISACODYL 5 MG TAB PO SCH (10:27)
[2017-10-25] MEDS: SENOKOT S TAB PO SCH (10:27)
--- NOTE | 2017-10-25 10:44 | IPNPDOC ---
Subjective Date Seen The patient was seen on 10/25/17. Subjective Chief Complaint/HPI The patient is a 27-year-old female admitted with a reason for visit of Upper Gastrointestinal Bleed. Events since last encounter Patient seen and examined at the bedside. States that she had some additional nausea with an episode of emesis this morning. Notes that she has been passing flatus, but has not had a bowel movement for a few days. Objective Physical Examination General Exam: Positive: Alert, Cooperative, No Acute Distress ENT Exam: Positive: Atraumatic, Mucous membr. moist/pink Chest Exam: Positive: Clear to auscultation, Normal air movement Heart Exam: Positive: Rate Normal, Normal S1, Normal S2 Abdomen Exam: Positive: Soft, Negative: Tenderness Extremity Exam: Positive: Other (Right BKA) Psych Exam: Positive: Oriented x 3 Assessment /Plan Plan/VTE VTE Prophylaxis Ordered?: Yes Plan Anasarca 2/2 Nephrotic Range Proteinuria likely from underlying Diabetic Nephropathy Echocardiogram reviewed normal EF and diastolic function Nephrotic range proteinuria with hypoalbuminemia, also evident from previous work up at [facility] Patient achieving adequate diuresis here, with a net negative fluid balances achieved here Continue with PO Torsemide, Aldactone, Lisinopril as per Nephro Atorvastatin added to regimen, Lipid Panel noted Further work up for nephrotic proteinuria unrevealing thus far Appreciate nephrology input Nausea/Vomiting 2/2 Gastroparesis from underlying Diabetes Cont Zofran, Compazine prn, Reglan q8h We will order a CT Scan of the Abd/Pel this AM given persistent nausea/vomiting Depression Continue current regimen Psychiatry consulted Coffee-ground emesis H&H stable Gastroenterology input noted-->EGD on 10/20/17 showed distal esophagitis Continue with Protonix and Sucralfate. Continue gastroparesis diet. Iron deficiency anemia Cont Ferrous sulfate H&H stable Elevated troponin level likely 2/2 Cardiac Strain from Anasarca, Fluid Overload Patient w/o complaints of chest pain No active signs of ischemia on EKG We will cont to monitor Diabetes mellitus with diabetic neuropathy, gastroparesis, and nephropathy Reduced dose of long-acting insulin (Levemir 15 units qhs) Lispro as per sliding scale Depression and Insomnia Continue with celexa Right BKA with chronic stump ulcer. 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 VS, I&O, 24H, Fishbone Vital Signs/I&O Vital Signs Date Time Temp Pulse Resp B/P (MAP) Pulse Ox O2 Delivery O2 Flow Rate FiO2 10/25/17 10:26 119/68 10/25/17 06:00 97.5 89 18 92 Nasal Cannula 2.0 Laboratory Data 24H LABS Laboratory Tests 2 10/24/17 11:44: Bedside Glucose (Misc Panel) 166H 10/25/17 06:13: Immature Granulocyte % (Auto) 0.5H, White Blood Count 8.2, Red Blood Count 3.80L , Hemoglobin 9.8L, Hematocrit 30.5L, Mean Corpuscular Volume 80.3, Mean Corpuscular Hemoglobin 25.8L, Mean Corpuscular Hemoglobin Concent 32.1, Red Cell Distribution Width 13.9, Platelet Count 445, Neutrophils (%) (Auto) 65.9, Lymphocytes (%) (Auto) 20.8L, Monocytes (%) (Auto) 9.9H, Eosinophils (%) (Auto) 2.3, Basophils (%) (Auto) 0.6, Neutrophils # (Auto) 5.4, Lymphocytes # (Auto) 1.7, Monocytes # (Auto) 0.8, Eosinophils # (Auto) 0.2, Basophils # (Auto) 0.1, Immature Granulocyte # (Auto) 0.0, Nucleated Red Blood Cells % (auto) 0.0, Anion Gap 7L, Glomerular Filtration Rate > 60.0, Blood Urea Nitrogen 10, Creatinine 1.02, Sodium Level 139#, Potassium Level 3.9, Chloride Level 99, Carbon Dioxide Level 33H, Calcium Level 8.6 CBC/BMP Laboratory Tests 10/25/17 06:13 Red Blood Count 3.80 L, Mean Corpuscular Volume 80.3, Mean Corpuscular Hemoglobin 25.8 L, Mean Corpuscular Hemoglobin Concent 32.1, Red Cell Distribution Width 13.9, Neutrophils (%) (Auto) 65.9, Lymphocytes (%) (Auto) 20.8 L, Monocytes (%) (Auto) 9.9 H, Eosinophils (%) (Auto) 2.3, Basophils (%) ( Auto) 0.6, Neutrophils # (Auto) 5.4, Lymphocytes # (Auto) 1.7, Monocytes # (Auto ) 0.8, Eosinophils # (Auto) 0.2, Basophils # (Auto) 0.1, Calcium Level 8.6 Microbiology Microbiology 10/18/17 Blood Culture - Final, Complete NO GROWTH AFTER 5 DAYS 10/18/17 Blood Culture - Final, Complete NO GROWTH AFTER 5 DAYS 10/19/17 Urine Culture - Final, Complete AMARILIS LUU MD Oct 25, 2017 10:44
[2017-10-25] MEDS ORDERED: GASTROGRAFIN SOLUTION 30ML PO ONE (11:15)
[2017-10-25] MEDS: PROCHLORPERAZINE 10 MG/2 ML VIAL (J0780) IV PRN (11:28)
[2017-10-25] MEDS ORDERED: GASTROGRAFIN SOLUTION 30ML (Q9963) PO ONE (11:45)
--- NOTE | 2017-10-25 13:55 | REP ---
CT of the abdomen and pelvis with IV contrast, without bowel contrast for nausea and vomiting: Comparison is 07/23/2017. Within the visualized lung mancia. The previous bilateral pleural effusions have resolved. There are small patchy bilateral lower lobe infiltrates, slightly decreased in size. The hepatic parenchyma is homogeneous and unremarkable. The gallbladder and pancreas are unremarkable. There is a focal low density wedge-shaped peripheral subcapsular lesion in the lower pole of the spleen, compatible with splenic infarct. There is no perisplenic hematoma. The adrenals and kidneys are unremarkable. There are a few tiny small atheromatous plaques in the renal arteries. The abdominal aorta is unremarkable. There is no bowel distension or obstruction. There is descending colon diverticulosis without diverticulitis. Pelvis: There is no ascites or adenopathy. There are surgical clips in the right lower quadrant. The the patient states she has an appendectomy. The uterus and adnexa are unremarkable. There is circumferential bladder wall thickening and this is nonspecific and could be from muscular hypertrophy or cystitis. There is a trace of ascites in the dependent pelvis. There is mild wall thickening of the distal sigmoid colon, nonspecific, however, compatible with colitis in the appropriate clinical setting. 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 No hydronephrosis. Small volume of ascites in the pelvis. Diffuse bladder wall thickening, cystitis versus muscular hypertrophy. Wall thickening of the distal sigmoid colon, colitis versus peristalsis artifact. Diverticulosis without diverticulitis of the descending colon. Appendectomy. The previous bilateral pleural effusions have resolved. There are bibasilar lower lobe infiltrates, slightly decreased. Signed by Marlo Chi MD 10/25/2017 01:47 P
[2017-10-25 14:00] VITALS: BP 170/102
--- NOTE | 2017-10-25 14:16 | IPNPDOC ---
Date Seen The patient was seen on 10/25/17. Progress Note SUBJECTIVE: The patient was seen and examined at the bedside this morning. She is laying in bed on her left side. Her is at the bedside. Patient had another episode of vomitus this morning. Upper endoscopy revealed severe esophagitis, but was otherwise normal. Patient is not interactive or conversant ; however, she does acknowledge our presence. Has been urinating without difficulty and the Stokes catheter has not been reinserted. Renal function has improved to 1.02. REVIEW OF SYSTEMS: Patient denies any fevers, chills, rigors. She denies any chest pain, shortness of breath. Further denies difficulty with urination. Admits to a recent episode of vomiting. Rest of review of systems is negative. PHYSICAL EXAMINATION: GENERAL: Patient is awake, alert, and oriented times three, lying in bed no apparent distress. HEAD/NECK: Extraocular muscles intact. Pupils equally round and reactive to light. Mucous membranes are moist. Neck is supple. There is no jugular venous distention (JVD). CARDIOVASCULAR: S1, S2. Regular rate. No murmur, rub, or gallop. There is trace edema of the left lower extremity. RESPIRATORY: Chest is clear to auscultation bilaterally. Bilateral equal air entry. No rales or rhonchi. ABDOMEN: Soft, nontender. No ascites. MUSCULOSKELETAL: Patient has right below-knee amputation and she has left second toe amputation, and there is trace edema of the left lower extremity. 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 Power is 5/5 in bilateral upper extremities. PSYCHIATRIC: Patient is somewhat melancholic and despondent today. LABORATORY REVIEW: See below. 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 No hydronephrosis. Small volume of ascites in the pelvis. Diffuse bladder wall thickening, cystitis versus muscular hypertrophy. Wall thickening of the distal sigmoid colon, colitis versus peristalsis artifact. Diverticulosis without diverticulitis of the descending colon. Appendectomy. The previous bilateral pleural effusions have resolved. There are bibasilar lower lobe infiltrates, slightly decreased. CURRENT INPATIENT MEDICATIONS: The patient's medications are all reviewed by myself and my attending. Continue with IV Venofer as well as oral Ferrous Sulfate. She continues with torsemide 10 mg daily and spironolactone 25 mg by mouth in the morning as well as Lisinopril 10mg orally daily. Remains on Reglan 5mg orally every 8 hours, Compazine 10mg IV every 6 hours as needed, and Zofran 4mg IV every 6 hours as needed. ASSESSMENT: 27-year-old female with past medical history of insulin-dependent diabetes since age 14, hypertension, diabetic gastroparesis, nephrotic range proteinuria, reflux esophagitis, admitted this time because of anasarca, pain epigastrium, and possible upper gastrointestinal (GI) bleed. PLAN: 1. Nephrotic range proteinuria: Autoimmune serology are all negative so far. Most likely she has diabetic nephropathy and she was not taking lisinopril in the past because she wanted to get . She has been started on lisinopril during this admission. Continue current dose of lisinopril. The rest of the proteinuria workup will be done as an outpatient if needed. 2. Anasarca: The patient's edema is significantly getting better. Continue with Torsemide 10mg daily and Spironolactone 25mg orally daily until follow-up in clinic one week after discharge. 3. Hypervolemic hyponatremia: Continue with Torsemide 10mg orally daily. Sodium today was 139. 4. Hypertension: Blood pressure is acceptable. Continue current dose of lisinopril 10 mg daily. 5. Iron-deficiency anemia: Patient was started on IV Venofer 200 mg every 48 hours. Continue with oral iron supplementation. 6. Acute kidney injury superimposed on chronic kidney disease stage II: Creatinine has improved to 1.02 today. Urine output was 900mL overnight, but likely not accurate as patient no longer has Stokes catheter in place. Continue with Lisinopril at this time. 7. Urinary retention: Improved. Urine output overnight was 900mL. LIkely not accurate as patient no longer has Stokes catheter in place. Could consider initiating Flomax. DISPOSITION: Stable from a renal standpoint. Will continue to monitor renal function. Patient to follow-up out-patient one week after discharge from hospital. VS, I&O, 24H, [place] Vital Signs/I&O Vital Signs Date Time Temp Pulse Resp B/P (MAP) Pulse Ox O2 Delivery O2 Flow Rate FiO2 10/25/17 11:28 20 Nasal Cannula 1.0 10/25/17 10:26 119/68 10/25/17 06:00 97.5 89 92 Laboratory Data 24H LABS Laboratory Tests 2 12/14/17 20:38: Bedside Glucose (Misc Panel) 144H 10/25/17 06:13: Immature Granulocyte % (Auto) 0.5H, White Blood Count 8.2, Red Blood Count 3.80L , Hemoglobin 9.8L, Hematocrit 30.5L, Mean Corpuscular Volume 80.3, Mean Corpuscular Hemoglobin 25.8L, Mean Corpuscular Hemoglobin Concent 32.1, Red Cell Distribution Width 13.9, Platelet Count 445, Neutrophils (%) (Auto) 65.9, Lymphocytes (%) (Auto) 20.8L, Monocytes (%) (Auto) 9.9H, Eosinophils (%) (Auto) 2.3, Basophils (%) (Auto) 0.6, Neutrophils # (Auto) 5.4, Lymphocytes # (Auto) 1.7, Monocytes # (Auto) 0.8, Eosinophils # (Auto) 0.2, Basophils # (Auto) 0.1, Immature Granulocyte # (Auto) 0.0, Nucleated Red Blood Cells % (auto) 0.0, Anion Gap 7L, Glomerular Filtration Rate > 60.0, Blood Urea Nitrogen 10, Creatinine 1.02, Sodium Level 139#, Potassium Level 3.9, Chloride Level 99, Carbon Dioxide Level 33H, Calcium Level 8.6 CBC/BMP Laboratory Tests 10/25/17 06:13 Red Blood Count 3.80 L, Mean Corpuscular Volume 80.3, Mean Corpuscular Hemoglobin 25.8 L, Mean Corpuscular Hemoglobin Concent 32.1, Red Cell Distribution Width 13.9, Neutrophils (%) (Auto) 65.9, Lymphocytes (%) (Auto) 20.8 L, Monocytes (%) (Auto) 9.9 H, Eosinophils (%) (Auto) 2.3, Basophils (%) ( Auto) 0.6, Neutrophils # (Auto) 5.4, Lymphocytes # (Auto) 1.7, Monocytes # (Auto ) 0.8, Eosinophils # (Auto) 0.2, Basophils # (Auto) 0.1, Calcium Level 8.6 Microbiology Microbiology 10/18/17 Blood Culture - Final, Complete NO GROWTH AFTER 5 DAYS 10/18/17 Blood Culture - Final, Complete NO GROWTH AFTER 5 DAYS 10/19/17 Urine Culture - Final, Complete OOSTHUIZEN,BUBBA DO Oct 25, 2017 14:16
[2017-10-25] MEDS ORDERED: MORPHINE 2 MG/ML 1ML SYRINGE IV ONE (14:30)
[2017-10-25] MEDS: GABAPENTIN 300 MG CAP PO SCH (17:43)
[2017-10-25] MEDS: IRON SUCROSE 200 MG in NS 100 ML IV SCH (21:00)
[2017-10-25] MEDS: GABAPENTIN 400 MG CAP PO SCH (21:00)
[2017-10-25] MEDS: LEVEMIR (INSULIN DETEMIR) 1 UNITS/0.01ML SC SCH (21:00)
[2017-10-25] MEDS: CitaloPRAM (CeleXA) 10 MG TABLET PO SCH (21:00)
[2017-10-25 22:00] VITALS: BP 154/72
[2017-10-26] MEDS: ONDANSETRON 4MG/2ML VIAL (J2405) IV PRN ×3 (01:12→18:27)
[2017-10-26] MEDS: SUCRALFATE SUSP 1GM/10ML UD PO SCH ×4 (05:08→23:25)
[2017-10-26] MEDS: METOCLOPRAMIDE 5 MG TAB PO SCH (05:08)
[2017-10-26] MEDS: SODIUM CHLORIDE 0.9% INJ 10 ML SYR IV SCH ×2 (05:09→18:00)
[2017-10-26] MEDS: MORPHINE 4 MG/ML 1ML SYRINGE IV PRN ×3 (05:19→18:28)
[2017-10-26 06:00] VITALS: BP 140/80
[2017-10-26] MEDS: HumaLOG INSULIN (NovoLOG) PER UNIT SC SCH ×4 (07:30→21:51)
[2017-10-26 08:03] LABS: MEAN CORPUSCULAR HEMOGLOBIN 25.6 pg (27.0-33.0); MEAN CORPUSCULAR HGB CONC 31.6 g/dl (32.0-36.5); PLATELET COUNT, AUTOMATED 414 10^3/uL (150-450); RED CELL DISTRIBUTION WIDTH 14.1 % (11.5-14.5); WHITE BLOOD COUNT 8.3 10^3/uL (4.0-10.0)
[2017-10-26] MEDS: MIRALAX *UNIT DOSE* 17GM PACKET PO SCH ×2 (09:00→21:51)
[2017-10-26] MEDS: SENOKOT S TAB PO SCH (09:00)
[2017-10-26] MEDS: ASCORBIC ACID 250 MG TAB PO SCH (09:00)
[2017-10-26] MEDS: TAMSULOSIN 0.4 MG CAP PO SCH (09:00)
[2017-10-26] MEDS: SPIRONOLACTONE 25 MG TAB PO SCH (09:00)
[2017-10-26] MEDS: FERROUS SULFATE 325MG TAB PO SCH (09:00)
[2017-10-26] MEDS: TORSEMIDE 10 MG TABLET PO SCH (09:00)
[2017-10-26] MEDS: LISINOPRIL 10 MG TAB PO SCH (09:00)
[2017-10-26] MEDS: BISACODYL 5 MG TAB PO SCH (09:00)
[2017-10-26] MEDS: ATORVASTATIN 20 MG TAB PO SCH (09:00)
[2017-10-26 09:28] LABS: CALCIUM LEVEL 8.7 MG/DL (8.5-10.1); CREATININE FOR GFR 1.32 MG/DL (0.55-1.02); GLOMERULAR FILTRATION RATE 50.7 (>60); POTASSIUM SERUM 4.3 MEQ/L (3.5-5.1)
[2017-10-26] MEDS: SODIUM CHLORIDE 0.9% INJ 10 ML SYR IV PRN ×2 (09:30→20:14)
[2017-10-26] MEDS: ENOXAPARIN 40 MG/0.4 ML SYRINGE (J1650) SC SCH (09:30)
[2017-10-26] MEDS: PANTOPRAZOLE 40MG INJ (PROTONIX) (C9113) IV SCH (09:30)
--- NOTE | 2017-10-26 11:07 | IPNPDOC ---
Subjective Date Seen The patient was seen on 10/26/17. Subjective Chief Complaint/HPI The patient is a 27-year-old female admitted with a reason for visit of Upper Gastrointestinal Bleed. Events since last encounter Patient seen and examined at the bedside. States that she still feels nauseous, and had an episode of emesis this morning. Denies any abdominal complaints, but does note that she is able to drink and keep milk down. Notes that she has not had a bowel movement, as she has not been eating much, but does note to be passing flatus regularly. Objective Physical Examination General Exam: Positive: Alert, Cooperative, No Acute Distress ENT Exam: Positive: Atraumatic, Mucous membr. moist/pink Chest Exam: Positive: Clear to auscultation, Normal air movement Heart Exam: Positive: Rate Normal, Normal S1, Normal S2 Abdomen Exam: Positive: Soft, Negative: Tenderness Extremity Exam: Positive: Other (Right BKA) Psych Exam: Positive: Oriented x 3 Assessment /Plan Plan/VTE VTE Prophylaxis Ordered?: Yes Plan Anasarca 2/2 Nephrotic Range Proteinuria likely from underlying Diabetic Nephropathy Echocardiogram reviewed normal EF and diastolic function Nephrotic range proteinuria with hypoalbuminemia, also evident from previous work up at [facility] Patient achieving adequate diuresis here, with a net negative fluid balances achieved here Continue with PO Torsemide, Aldactone, Lisinopril as per Nephro Atorvastatin added to regimen, Lipid Panel noted Further work up for nephrotic proteinuria unrevealing thus far Appreciate nephrology input Nausea/Vomiting 2/2 Gastroparesis from underlying Diabetes Cont Zofran, Compazine prn, Reglan q8h dose increased CT Scan of the Abd/Pel noted--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 Cooney of surgery--no need for surgical intervention, or for use of anticoagulation therapy Depression Continue current regimen Psychiatry consulted Coffee-ground emesis H&H stable Gastroenterology input noted-->EGD on 10/20/17 showed distal esophagitis Continue with Protonix and Sucralfate. Continue gastroparesis diet. Iron deficiency anemia Cont Ferrous sulfate H&H stable Elevated troponin level likely 2/2 Cardiac Strain from Anasarca, Fluid Overload Patient w/o complaints of chest pain No active signs of ischemia on EKG We will cont to monitor Diabetes mellitus with diabetic neuropathy, gastroparesis, and nephropathy Reduced dose of long-acting insulin (Levemir 15 units qhs) Lispro as per sliding scale Depression and Insomnia Continue with celexa Right BKA with chronic stump ulcer. 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 VS, I&O, 24H, Fishbone Vital Signs/I&O Vital Signs Date Time Temp Pulse Resp B/P (MAP) Pulse Ox O2 Delivery O2 Flow Rate FiO2 10/26/17 06:00 96.2 82 16 140/80 (100) 96 Nasal Cannula 2.0 I&O- Last 24 Hours up to 6 AM 10/27/17 06:00 Intake Total 0 ml Output Total 0 ml Balance 0 ml Laboratory Data 24H LABS Laboratory Tests 2 10/26/17 07:47: Nucleated Red Blood Cells % (auto) 0.0, Anion Gap 7L, Glomerular Filtration Rate 50.7L, Blood Urea Nitrogen 14, Creatinine 1.32H, Sodium Level 136, Potassium Level 4.3, Chloride Level 98, Carbon Dioxide Level 31, Calcium Level 8.7, Magnesium Level 2.0 CBC/BMP Laboratory Tests 10/26/17 07:47 Red Blood Count 3.90 L, Mean Corpuscular Volume 81.0, Mean Corpuscular Hemoglobin 25.6 L, Mean Corpuscular Hemoglobin Concent 31.6 L, Red Cell Distribution Width 14.1, Calcium Level 8.7 Microbiology Microbiology 10/18/17 Blood Culture - Final, Complete NO GROWTH AFTER 5 DAYS 10/18/17 Blood Culture - Final, Complete NO GROWTH AFTER 5 DAYS 10/19/17 Urine Culture - Final, Complete AMARILIS LUU MD Oct 26, 2017 11:07
[2017-10-26] MEDS: METOCLOPRAMIDE INJ 10MG/2ML VIAL (J2765) IV SCH ×2 (12:07→19:06)
[2017-10-26 14:00] VITALS: BP 136/90
--- NOTE | 2017-10-26 14:01 | IPNPDOC ---
Date Seen The patient was seen on 10/26/17. Progress Note SUBJECTIVE: The patient was seen and examined at the bedside this morning. She is laying in bed on her right side. She continues to admit to nausea and vomiting and is not eating much as a result. Severe esophagitis noted on upper endoscopy. CT of abdomen and pelvis did not reveal an etiology for her continued nausea and vomiting. Urine output was 800mL overnight. Slight rise her creatinine likely a result of the contrast she received yesterday. REVIEW OF SYSTEMS: Patient denies any fevers, chills, rigors. She denies any chest pain, shortness of breath. Further denies difficulty with urination. Admits to continued nausea and vomiting. Rest of review of systems is negative. PHYSICAL EXAMINATION: GENERAL: Patient is awake, alert, and oriented times three, lying in bed no apparent distress. HEAD/NECK: Extraocular muscles intact. Pupils equally round and reactive to light. Mucous membranes are moist. Neck is supple. There is no jugular venous distention (JVD). CARDIOVASCULAR: S1, S2. Regular rate. No murmur, rub, or gallop. Trace edema on lower extremities has resolved. RESPIRATORY: Chest is clear to auscultation bilaterally. Bilateral equal air entry. No rales or rhonchi. ABDOMEN: Soft, nontender. No ascites. MUSCULOSKELETAL: Patient has right below-knee amputation and she has left second toe amputation. 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 Power is 5/5 in bilateral upper extremities. PSYCHIATRIC: Patient is somewhat melancholic and despondent today. LABORATORY REVIEW: See below. CURRENT INPATIENT MEDICATIONS: The patient's medications are all reviewed by myself and my attending. Continue with IV Venofer as well as oral Ferrous Sulfate. She continues with Torsemide 10 mg daily and Spironolactone 25 mg by mouth in the morning as well as Lisinopril 10mg orally daily; however, she refused these medications this morning. Reglan 10mg IV every 8 hours, Compazine 10mg IV every 6 hours as needed, and Zofran 4mg IV every 6 hours as needed. ASSESSMENT: 27-year-old female with past medical history of insulin-dependent diabetes since age 14, hypertension, diabetic gastroparesis, nephrotic range proteinuria, reflux esophagitis, admitted this time because of anasarca, pain epigastrium, and possible upper gastrointestinal (GI) bleed. PLAN: 1. Nephrotic range proteinuria: Work-up thus far for etiology of proteinuria has been negative. Likely result of diabetes. Remains on Lisinopril, Torsemide , and Spironolactone; however, patient refused these medications at this morning 's administration. Slight worsening of creatinine likely a result of IV contrast. Monitor renal function. Anticipate improvement in creatinine with continued urine output. 2. Anasarca: Appears almost resolved. Urine output 800mL overnight. Continue with Torsemide 10mg daily and Spironolactone 25mg orally daily until follow-up in clinic one week after discharge. 3. Hypervolemic hyponatremia: Continue with Torsemide 10mg orally daily. Sodium today was 136. 4. Hypertension: Blood pressure is acceptable. Continue current dose of lisinopril 10 mg daily. 5. Iron-deficiency anemia: Patient was started on IV Venofer 200 mg every 48 hours. Continue with oral iron supplementation. 6. Acute kidney injury superimposed on chronic kidney disease stage II: Creatinine has slightly worsened to 1.32 today. Urine output was 800mL overnight, but likely not accurate as patient no longer has Stokes catheter in place. Continue with Lisinopril at this time. 7. Urinary retention: Resolved. Continue with Flomax; however, patient refused medication administration this morning. DISPOSITION: Worsening of creatinine likely secondary to IV contrast from imaging obtained yesterday. Continues to make an appropriate amount of urine. Monitor renal function. Patient is on several medications for optimization of fluid status; however, it appears that she refused medication administration this morning. Recommend continuation of these medications (Lisinopril, Torsemide, Spironolactone, Flomax) as they are optimizing her fluid status. Request that patient follow-up out-patient in one week after discharge. VS, I&O, 24H, Fishbone Vital Signs/I&O Vital Signs Date Time Temp Pulse Resp B/P (MAP) Pulse Ox O2 Delivery O2 Flow Rate FiO2 10/26/17 12:17 18 10/26/17 11:34 Nasal Cannula 2.0 10/26/17 06:00 96.2 82 140/80 (100) 96 I&O- Last 24 Hours up to 6 AM 10/27/17 06:00 Intake Total 0 ml Output Total 0 ml Balance 0 ml Laboratory Data 24H LABS Laboratory Tests 2 10/26/17 07:47: Nucleated Red Blood Cells % (auto) 0.0, Anion Gap 7L, Glomerular Filtration Rate 50.7L, Blood Urea Nitrogen 14, Creatinine 1.32H, Sodium Level 136, Potassium Level 4.3, Chloride Level 98, Carbon Dioxide Level 31, Calcium Level 8.7, Magnesium Level 2.0 CBC/BMP Laboratory Tests 10/26/17 07:47 Red Blood Count 3.90 L, Mean Corpuscular Volume 81.0, Mean Corpuscular Hemoglobin 25.6 L, Mean Corpuscular Hemoglobin Concent 31.6 L, Red Cell Distribution Width 14.1, Calcium Level 8.7 Microbiology Microbiology 10/18/17 Blood Culture - Final, Complete NO GROWTH AFTER 5 DAYS 10/18/17 Blood Culture - Final, Complete NO GROWTH AFTER 5 DAYS 10/19/17 Urine Culture - Final, Complete BUBBA GLOVER DO Oct 26, 2017 14:01
[2017-10-26] MEDS: GABAPENTIN 300 MG CAP PO SCH (17:00)
[2017-10-26] MEDS ORDERED: HYDROmorphone HCL 1 MG/ML SYRINGE (J1170) IV ONE (20:15)
[2017-10-26] MEDS: GABAPENTIN 400 MG CAP PO SCH (21:00)
[2017-10-26] MEDS: LEVEMIR (INSULIN DETEMIR) 1 UNITS/0.01ML SC SCH (21:40)
[2017-10-26] MEDS: CitaloPRAM (CeleXA) 10 MG TABLET PO SCH (21:51)
[2017-10-26 22:00] VITALS: BP 140/86
[2017-10-27] MEDS: METOCLOPRAMIDE INJ 10MG/2ML VIAL (J2765) IV SCH ×3 (02:22→18:09)
[2017-10-27] MEDS: SODIUM CHLORIDE 0.9% INJ 10 ML SYR IV PRN ×3 (02:22→09:08)
[2017-10-27] MEDS: MORPHINE 4 MG/ML 1ML SYRINGE IV PRN (03:29)
[2017-10-27] MEDS: ONDANSETRON 4MG/2ML VIAL (J2405) IV PRN (03:29)
[2017-10-27] MEDS: SODIUM CHLORIDE 0.9% INJ 10 ML SYR IV SCH ×2 (05:56→18:09)
[2017-10-27 06:00] VITALS: BP 135/85
[2017-10-27 06:12] LABS: MEAN CORPUSCULAR HEMOGLOBIN 25.6 pg (27.0-33.0); MEAN CORPUSCULAR HGB CONC 31.9 g/dl (32.0-36.5); MEAN CORPUSCULAR VOLUME 80.2 fl (80.0-96.0); PLATELET COUNT, AUTOMATED 464 10^3/uL (150-450); WHITE BLOOD COUNT 7.9 10^3/uL (4.0-10.0)
[2017-10-27] MEDS: SUCRALFATE SUSP 1GM/10ML UD PO SCH ×3 (06:12→17:14)
[2017-10-27 06:37] LABS: CALCIUM LEVEL 8.9 MG/DL (8.5-10.1); CREATININE FOR GFR 1.38 MG/DL (0.55-1.02); GLOMERULAR FILTRATION RATE 48.1 (>60); MAGNESIUM LEVEL 2.1 MG/DL (1.8-2.4); POTASSIUM SERUM 4.2 MEQ/L (3.5-5.1)
[2017-10-27] MEDS: HumaLOG INSULIN (NovoLOG) PER UNIT SC SCH ×4 (07:30→20:07)
[2017-10-27] MEDS: TORSEMIDE 10 MG TABLET PO SCH (09:00)
[2017-10-27] MEDS: ATORVASTATIN 20 MG TAB PO SCH (09:00)
[2017-10-27] MEDS: TAMSULOSIN 0.4 MG CAP PO SCH (09:00)
[2017-10-27] MEDS: BISACODYL 5 MG TAB PO SCH (09:00)
[2017-10-27] MEDS: MIRALAX *UNIT DOSE* 17GM PACKET PO SCH ×2 (09:00→21:00)
[2017-10-27] MEDS: FERROUS SULFATE 325MG TAB PO SCH (09:00)
[2017-10-27] MEDS: LISINOPRIL 10 MG TAB PO SCH (09:00)
[2017-10-27] MEDS: ASCORBIC ACID 250 MG TAB PO SCH (09:00)
[2017-10-27] MEDS: SPIRONOLACTONE 25 MG TAB PO SCH (09:00)
[2017-10-27] MEDS: SENOKOT S TAB PO SCH (09:00)
[2017-10-27] MEDS: PANTOPRAZOLE 40MG INJ (PROTONIX) (C9113) IV SCH (09:06)
[2017-10-27] MEDS: ENOXAPARIN 40 MG/0.4 ML SYRINGE (J1650) SC SCH (09:08)
[2017-10-27] MEDS: MORPHINE 2 MG/ML 1ML SYRINGE IV PRN ×2 (09:48→18:10)
[2017-10-27] MEDS: PROCHLORPERAZINE 10 MG/2 ML VIAL (J0780) IV PRN ×2 (12:40→23:52)
--- NOTE | 2017-10-27 13:26 | IPNPDOC ---
Subjective Date Seen The patient was seen on 10/27/17. Subjective Chief Complaint/HPI The patient is a 27-year-old female admitted with a reason for visit of Upper Gastrointestinal Bleed. Events since last encounter Patient seen and examined at the bedside. Notes that she has still been feeling nauseous, and has not tolerated a by mouth diet without feeling nauseous or vomiting. No other acute overnight events noted. Objective Physical Examination General Exam: Positive: Alert, Cooperative, No Acute Distress ENT Exam: Positive: Atraumatic, Mucous membr. moist/pink Chest Exam: Positive: Clear to auscultation, Normal air movement Heart Exam: Positive: Rate Normal, Normal S1, Normal S2 Abdomen Exam: Positive: Soft, Tenderness (Mild tenderness to palpation diffusely. No rebound tenderness, guarding, or rigidity noted.) Extremity Exam: Positive: Other (Right BKA) Psych Exam: Positive: Oriented x 3 Assessment /Plan Plan/VTE VTE Prophylaxis Ordered?: Yes Plan Anasarca 2/2 Nephrotic Range Proteinuria likely from underlying Diabetic Nephropathy Echocardiogram reviewed normal EF and diastolic function Nephrotic range proteinuria with hypoalbuminemia, also evident from previous work up at 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 Cooney of surgery--no need for surgical intervention, or for use of anticoagulation therapy The patient has been requesting IV narcotic therapy here around the clock. We will down-titrate this dosing as this can contribute to the patient's gastroparesis. I did extensively discuss the need for us to do this with the patient at the bedside, and to abstain from further narcotic use as possible. Will consult with GI tomorrow regarding further options for treatment of gastroparesis given persistent nausea, vomiting, and inability to tolerate PO diet Depression Continue current regimen Psychiatry consulted Coffee-ground emesis H&H stable Gastroenterology input noted-->EGD on 10/20/17 showed distal esophagitis Continue with Protonix and Sucralfate. Continue gastroparesis diet. Iron deficiency anemia Cont Ferrous sulfate H&H stable Elevated troponin level likely 2/2 Cardiac Strain from Anasarca, Fluid Overload Patient w/o complaints of chest pain No active signs of ischemia on EKG We will cont to monitor Diabetes mellitus with diabetic neuropathy, gastroparesis, and nephropathy Reduced dose of long-acting insulin (Levemir 15 units qhs) Lispro as per sliding scale Depression and Insomnia Continue with celexa Right BKA with chronic stump ulcer. Hypertension Cont Regimen as ordered Hyperlipidemia Continue statin DVT Prophylaxis Lovenox SC Poor Halfway Prognosis Dispo--pending clinical improvement. VS, I&O, 24H, Fishbone Vital Signs/I&O Vital Signs Date Time Temp Pulse Resp B/P (MAP) Pulse Ox O2 Delivery O2 Flow Rate FiO2 10/27/17 12:10 Nasal Cannula 2.0 10/27/17 09:58 18 10/27/17 06:00 98.4 85 135/85 (102) 97 I&O- Last 24 Hours up to 6 AM 10/28/17 06:00 Intake Total 0 ml Output Total 0 ml Balance 0 ml Laboratory Data 24H LABS Laboratory Tests 2 10/26/17 17:13: Bedside Glucose (Misc Panel) 92 10/26/17 21:33: Bedside Glucose (Misc Panel) 117H 10/27/17 05:59: Nucleated Red Blood Cells % (auto) 0.0, Anion Gap 6L, Glomerular Filtration Rate 48.1L, Blood Urea Nitrogen 14, Creatinine 1.38H, Sodium Level 136, Potassium Level 4.2, Chloride Level 99, Carbon Dioxide Level 31, Calcium Level 8.9, Magnesium Level 2.1 CBC/BMP Laboratory Tests 10/27/17 05:59 Red Blood Count 3.99 L, Mean Corpuscular Volume 80.2, Mean Corpuscular Hemoglobin 25.6 L, Mean Corpuscular Hemoglobin Concent 31.9 L, Red Cell Distribution Width 14.0, Calcium Level 8.9 Microbiology Microbiology 10/18/17 Blood Culture - Final, Complete NO GROWTH AFTER 5 DAYS 10/18/17 Blood Culture - Final, Complete NO GROWTH AFTER 5 DAYS 10/19/17 Urine Culture - Final, Complete AMARILIS LUU MD Oct 27, 2017 13:26
[2017-10-27 14:00] VITALS: BP 152/84
[2017-10-27] MEDS: GABAPENTIN 300 MG CAP PO SCH (16:33)
[2017-10-27] MEDS: NORCO, ANEXSIA 5/325MG TABLET (HYDROcodone/ACETAMINOPHEN) PO PRN ×2 (16:33→23:48)
[2017-10-27] MEDS: LEVEMIR (INSULIN DETEMIR) 1 UNITS/0.01ML SC SCH (21:00)
[2017-10-27] MEDS: CitaloPRAM (CeleXA) 10 MG TABLET PO SCH (21:00)
[2017-10-27] MEDS: GABAPENTIN 400 MG CAP PO SCH (21:00)
[2017-10-27] MEDS: IRON SUCROSE 200 MG in NS 100 ML IV SCH (21:47)
[2017-10-27 22:00] VITALS: BP 156/86
[2017-10-28] VITALS: BP 156/86
[2017-10-28] MEDS: METOCLOPRAMIDE INJ 10MG/2ML VIAL (J2765) IV SCH ×3 (02:27→18:12)
[2017-10-28] MEDS: MORPHINE 2 MG/ML 1ML SYRINGE IV PRN (02:28)
[2017-10-28] MEDS: SODIUM CHLORIDE 0.9% INJ 10 ML SYR IV SCH ×2 (05:02→17:19)
[2017-10-28 05:18] LABS: MEAN CORPUSCULAR HEMOGLOBIN 25.9 pg (27.0-33.0); MEAN CORPUSCULAR HGB CONC 32.7 g/dl (32.0-36.5); MEAN CORPUSCULAR VOLUME 79.2 fl (80.0-96.0); PLATELET COUNT, AUTOMATED 472 10^3/uL (150-450); RED CELL DISTRIBUTION WIDTH 13.9 % (11.5-14.5); WHITE BLOOD COUNT 5.2 10^3/uL (4.0-10.0)
[2017-10-28] MEDS: SUCRALFATE SUSP 1GM/10ML UD PO SCH ×5 (05:37→23:09)
[2017-10-28 05:51] LABS: ANION GAP 9 MEQ/L (8-16); BLOOD UREA NITROGEN 11 MG/DL (7-18); CALCIUM LEVEL 8.5 MG/DL (8.5-10.1); CARBON DIOXIDE LEVEL 27 MEQ/L (21-32); CHLORIDE LEVEL 97 MEQ/L (98-107); GLOMERULAR FILTRATION RATE > 60.0 (>60); GLUCOSE, FASTING 119 MG/DL (70-105); MAGNESIUM LEVEL 1.9 MG/DL (1.8-2.4); POTASSIUM SERUM 4.4 MEQ/L (3.5-5.1); SODIUM LEVEL 133 MEQ/L (136-145)
[2017-10-28 06:00] VITALS: BP 142/89
[2017-10-28] MEDS: MIRALAX *UNIT DOSE* 17GM PACKET PO SCH ×3 (08:17→21:58)
[2017-10-28] MEDS: ENOXAPARIN 40 MG/0.4 ML SYRINGE (J1650) SC SCH (08:18)
[2017-10-28] MEDS: TAMSULOSIN 0.4 MG CAP PO SCH (08:19)
[2017-10-28] MEDS: HumaLOG INSULIN (NovoLOG) PER UNIT SC SCH ×4 (08:19→20:16)
[2017-10-28] MEDS: TORSEMIDE 10 MG TABLET PO SCH (08:19)
[2017-10-28] MEDS: SENOKOT S TAB PO SCH (08:20)
[2017-10-28] MEDS: BISACODYL 5 MG TAB PO SCH (08:20)
[2017-10-28] MEDS: LISINOPRIL 10 MG TAB PO SCH (08:20)
[2017-10-28] MEDS: ATORVASTATIN 20 MG TAB PO SCH (08:20)
[2017-10-28] MEDS: SPIRONOLACTONE 25 MG TAB PO SCH (08:20)
[2017-10-28] MEDS: FERROUS SULFATE 325MG TAB PO SCH (08:20)
[2017-10-28] MEDS: ASCORBIC ACID 250 MG TAB PO SCH (08:21)
[2017-10-28] MEDS: PANTOPRAZOLE 40MG INJ (PROTONIX) (C9113) IV SCH (08:24)
[2017-10-28] MEDS: NORCO, ANEXSIA 5/325MG TABLET (HYDROcodone/ACETAMINOPHEN) PO PRN ×3 (08:28→23:10)
[2017-10-28] MEDS: PROCHLORPERAZINE 10 MG/2 ML VIAL (J0780) IV PRN ×2 (08:43→15:47)
[2017-10-28] MEDS: ERYTHROMYCIN 250 MG TABLET PO SCH ×2 (11:21→17:16)
[2017-10-28] MEDS: ONDANSETRON 4MG/2ML VIAL (J2405) IV PRN (12:31)
--- NOTE | 2017-10-28 12:48 | IPNPDOC ---
Subjective Date Seen The patient was seen on 10/28/17. Subjective Chief Complaint/HPI The patient is a 27-year-old female admitted with a reason for visit of Upper Gastrointestinal Bleed. Events since last encounter Patient seen and examined at the bedside. States that she is feeling a little better today, notes that she was able to have some cereal with milk this morning. No acute overnight events noted. Objective Physical Examination General Exam: Positive: Alert, Cooperative, No Acute Distress ENT Exam: Positive: Atraumatic, Mucous membr. moist/pink Chest Exam: Positive: Clear to auscultation, Normal air movement Heart Exam: Positive: Rate Normal, Normal S1, Normal S2 Abdomen Exam: Positive: Soft, Tenderness (Mild tenderness to deep palpation diffusely. No rebound tenderness, guarding, or rigidity noted.) Extremity Exam: Positive: Other (Right BKA) Psych Exam: Positive: Oriented x 3 Assessment /Plan Plan/VTE VTE Prophylaxis Ordered?: Yes Plan Anasarca 2/2 Nephrotic Range Proteinuria likely from underlying Diabetic Nephropathy Echocardiogram reviewed normal EF and diastolic function Nephrotic range proteinuria with hypoalbuminemia, also evident from previous work up at [facility] Patient achieving adequate diuresis here, with a net negative fluid balances achieved here Continue with PO Torsemide, Aldactone, Lisinopril as per Nephro Atorvastatin added to regimen, Lipid Panel noted Further work up for nephrotic proteinuria unrevealing thus far Appreciate nephrology input Nausea/Vomiting 2/2 Gastroparesis from underlying Diabetes Cont Zofran, Compazine prn, Reglan q8h CT Scan of the Abd/Pel noted--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 Cooney of surgery--no need for surgical intervention, or for use of anticoagulation therapy The patient has been requesting IV narcotic therapy here around the clock. We will down-titrate this dosing as this can contribute to the patient's gastroparesis. I did extensively discuss the need for us to do this with the patient at the bedside, and to abstain from further narcotic use as possible. Erythromycin added to regimen Low Residue diet ordered with dietary consult GI consulted Depression Continue current regimen Psychiatry consulted Coffee-ground emesis H&H stable Gastroenterology input noted-->EGD on 10/20/17 showed distal esophagitis Continue with Protonix and Sucralfate. Continue gastroparesis diet. Iron deficiency anemia Cont Ferrous sulfate H&H stable Elevated troponin level likely 2/2 Cardiac Strain from Anasarca, Fluid Overload Patient w/o complaints of chest pain No active signs of ischemia on EKG We will cont to monitor Diabetes mellitus with diabetic neuropathy, gastroparesis, and nephropathy Reduced dose of long-acting insulin (Levemir 15 units qhs) Lispro as per sliding scale Depression and Insomnia Continue with celexa Right BKA with chronic stump ulcer. Hypertension Cont Regimen as ordered Hyperlipidemia Continue statin DVT Prophylaxis Lovenox SC Poor Vp Research Prognosis Dispo--pending clinical improvement. VS, I&O, 24H, Fishbone Vital Signs/I&O Vital Signs Date Time Temp Pulse Resp B/P (MAP) Pulse Ox O2 Delivery O2 Flow Rate FiO2 10/28/17 08:58 18 Nasal Cannula 2.0 10/28/17 08:20 142/89 10/28/17 06:00 96.9 82 98 Laboratory Data 24H LABS Laboratory Tests 2 10/28/17 05:00: Nucleated Red Blood Cells % (auto) 0.0, Anion Gap 9, Glomerular Filtration Rate > 60.0, Blood Urea Nitrogen 11, Creatinine 1.00, Sodium Level 133L, Potassium Level 4.4, Chloride Level 97L, Carbon Dioxide Level 27, Calcium Level 8.5, Magnesium Level 1.9 CBC/BMP Laboratory Tests 10/28/17 05:00 Red Blood Count 4.09, Mean Corpuscular Volume 79.2 L, Mean Corpuscular Hemoglobin 25.9 L, Mean Corpuscular Hemoglobin Concent 32.7, Red Cell Distribution Width 13.9, Calcium Level 8.5 Microbiology Microbiology 10/18/17 Blood Culture - Final, Complete NO GROWTH AFTER 5 DAYS 10/18/17 Blood Culture - Final, Complete NO GROWTH AFTER 5 DAYS 10/19/17 Urine Culture - Final, Complete AMARILIS LUU MD Oct 28, 2017 12:48
[2017-10-28] MEDS ORDERED: MORPHINE 2 MG/ML 1ML SYRINGE IV ONE ×2 (13:00→16:45)
--- NOTE | 2017-10-28 13:22 | IPNPDOC ---
Date Seen The patient was seen on 10/28/17. Progress Note SUBJECTIVE: The patient was seen and examined at the bedside this morning. She is laying in bed on her left side. Her significant other is present in the room during my evaluation. She has not had an episode of vomiting this morning and was able to tolerate taking her medications this morning. Admits to taking a fluid pill as an outpatient, but is unable to recall the name. Said she was taking a "white pill" and a "green and white pill." She does not have much of a diet, but has been tolerating fluids. She continues to admit to some abdominal pain. Anasarca has vastly improved. Renal function has improved and the contrast appears to have passed through the kidney completely. REVIEW OF SYSTEMS: Patient denies any fevers, chills, rigors. She denies any chest pain, shortness of breath. Further denies difficulty with urination. Admits to continued abdominal pain. Rest of review of systems is negative. PHYSICAL EXAMINATION: GENERAL: Patient is awake, alert, and oriented times three, lying in bed, no apparent distress. HEAD/NECK: Extraocular muscles intact. Pupils equally round and reactive to light. Mucous membranes are moist. Neck is supple. There is no jugular venous distention (JVD). CARDIOVASCULAR: S1, S2. Regular rate. No murmur, rub, or gallop. No peripheral edema appreciated. RESPIRATORY: Chest is clear to auscultation bilaterally. Bilateral equal air entry. No rales or rhonchi. ABDOMEN: Soft, nontender. No ascites. MUSCULOSKELETAL: Patient has right below-knee amputation and she has left second toe amputation. CENTRAL NERVOUS SYSTEM (PROCUREMENT COORDINATOR): No focal neurological deficit. Power is 5/5 in bilateral upper extremities. PSYCHIATRIC: Patient is somewhat melancholic and despondent today. LABORATORY REVIEW: See below. CURRENT INPATIENT MEDICATIONS: The patient's medications are all reviewed by myself and my attending. Continue with IV Venofer as well as oral Ferrous Sulfate. She continues with Torsemide 10 mg daily and Spironolactone 25 mg by mouth in the morning as well as Lisinopril 10mg orally daily. Reglan 10mg IV every 8 hours, Compazine 10mg IV every 6 hours as needed, and Zofran 4mg IV every 6 hours as needed. ASSESSMENT: 27-year-old female with past medical history of insulin-dependent diabetes since age 14, hypertension, diabetic gastroparesis, nephrotic range proteinuria, reflux esophagitis, admitted this time because of anasarca, pain epigastrium, and possible upper gastrointestinal (GI) bleed. PLAN: 1. Nephrotic range proteinuria: Work-up thus far for etiology of proteinuria has been negative. Likely result of diabetes. Remains on Lisinopril, Torsemide , and Spironolactone. Creatinine has improved. 2. Anasarca: Appears resolved. Three voids overnight, but no volume recorded. Continue with Torsemide 10mg daily and Spironolactone 25mg orally daily until follow-up in clinic one week after discharge. 3. Hypervolemic hyponatremia: Continue with Torsemide 10mg orally daily. Sodium today was 133. 4. Hypertension: Blood pressure is acceptable. Continue current dose of lisinopril 10 mg daily. 5. Iron-deficiency anemia: Patient was started on IV Venofer 200 mg every 48 hours. Continue with oral iron supplementation. 6. Acute kidney injury superimposed on chronic kidney disease stage II: Creatinine has improved. Continue with Lisinopril at this time. 7. Urinary retention: Resolved. Continue with Flomax. DISPOSITION: Patient is stable from a renal standpoint. Continue with medications. Appears that her fluid status is optimized. Would recommend that patient have close follow-up with nephrology, either with a local provider in [place] or with the lacing cutter she has been seeing prior in [place]. Recommendation would be for patient to have follow-up in one week after discharge. It has been our pleasure to care for Ms. Rose during her admission. Again, she is stable from a renal standpoint, but should you need renal care again please do not hesitate to re-consult. Thank you. VS, I&O, 24H, Fishbone Vital Signs/I&O Vital Signs Date Time Temp Pulse Resp B/P (MAP) Pulse Ox O2 Delivery O2 Flow Rate FiO2 10/28/17 13:06 18 Nasal Cannula 2.0 10/28/17 08:20 142/89 10/28/17 06:00 96.9 82 98 Laboratory Data 24H LABS Laboratory Tests 2 10/28/17 05:00: Nucleated Red Blood Cells % (auto) 0.0, Anion Gap 9, Glomerular Filtration Rate > 60.0, Blood Urea Nitrogen 11, Creatinine 1.00, Sodium Level 133L, Potassium Level 4.4, Chloride Level 97L, Carbon Dioxide Level 27, Calcium Level 8.5, Magnesium Level 1.9 CBC/BMP Laboratory Tests 10/28/17 05:00 Red Blood Count 4.09, Mean Corpuscular Volume 79.2 L, Mean Corpuscular Hemoglobin 25.9 L, Mean Corpuscular Hemoglobin Concent 32.7, Red Cell Distribution Width 13.9, Calcium Level 8.5 Microbiology Microbiology 10/18/17 Blood Culture - Final, Complete NO GROWTH AFTER 5 DAYS 10/18/17 Blood Culture - Final, Complete NO GROWTH AFTER 5 DAYS 10/19/17 Urine Culture - Final, Complete BUBBA GLOVER DO Oct 28, 2017 13:22
[2017-10-28 14:00] VITALS: BP 162/110
--- NOTE | 2017-10-28 15:25 | IPN ---
DATE OF SERVICE: 10/27/2017 SUBJECTIVE: The patient was seen this morning at the bedside. Her was present. Patient was not very conversational this morning and gave minimal history and repeatedly requests increased pain medications and notes ongoing nausea and episodes of vomiting. She requests Dilaudid. This morning, she did not get her Flomax, torsemide, atorvastatin, spironolactone, lisinopril, ferrous , and other medications due to complaint of nausea, vomiting, and inability to tolerate by mouth. Yesterday as well, she did not receive the majority of her medications. VITAL SIGNS: Temperature 96.3, pulse 88, respiratory rate 20, blood pressure 152/84, saturating 98% on room air. Intake is not fully recorded, 480 mL yesterday. Urine output is recorded as 900 mL. There is no weight recorded on the bed scale. GENERAL: The patient is seen lying lateral, recumbent in bed. Her is present at the bedside. She speaks very little and gives terse and short answers to questions today, and is in no acute distress. HEAD AND NECK: Extraocular muscles are intact. Her conjunctivae and oral mucosa are both moist. Neck is supple. No jugular venous distention (JVD). CARDIAC: S1, S2, regular rate. 2+ radial pulse. No significant edema in the lower extremities. RESPIRATORY: Clear to auscultation bilaterally. Comfortable on room air. No accessory muscle use. The abdomen is soft and tender to palpation in the epigastrium. No rebound tenderness. Bowel sounds are present. EXTREMITIES: There is a right below-knee amputation (BKA). There is no edema. PSYCHIATRIC: Patient is withdrawn, does not participate in conversation at hand. NEUROLOGIC: No focal deficits. LABS: White count 7.9, hemoglobin 10.2, platelets 464. Sodium 136, potassium 4.2, bicarbonate 31, BUN 14, creatinine 1.38, glucose 128. INPATIENT MEDICATIONS: Reviewed by myself. Pain regimen has been adjusted per the primary team. Remainder of medications are unchanged from prior though, as noted above, patient has missed multiple doses of multiple medications over the past 48 hours. PROBLEMS: 1. Acute kidney injury (RONALD) on chronic kidney disease (CKD) stage II. Patient had an IV contrast study on 10/25/2017, subsequently, had deterioration in GFR. I suspect contrast-induced nephropathy. Renal function has plateaued and is expected to improve in the coming 24-48 hours. Due to the patient's complaint of nausea, she has been refusing multiple medications the past 2 days, including her lisinopril, torsemide, and spironolactone. I would await for improvement in renal function over the next 24-48 hours without use of IV fluids at this time. Would hold off on further IV contrast studies. 2. Nausea, vomiting, secondary to diabetic gastroparesis. Patient continues on antiemetics. She is on Reglan 10 mg IV every 8 hourly along with as needed Zofran and Compazine. The patient's IV narcotics have been adjusted per the primary team. She also reports chronic use of narcotics as an outpatient and states she follows up with a paint formulator. 3. Nephrotic range proteinuria with prior anasarca. Patients volume status has improved over the course of this admission. At present, she has been refusing her torsemide, Aldactone, and lisinopril for the past 2 days. Serologic workup for nephrotic range proteinuria including antinuclear antibody (EILEEN), dsDNA, C3, C4 were negative. Most likely proteinuria secondary to diabetic nephropathy. She should continue on chronic JYOTI inhibition as long as she has no future plans for . 4. Iron-deficiency anemia. Patient continues on Venofer. 5. Episode of urinary retention. She continues on Flomax. 6. Plan of care is discussed with Dr. Hossein Loyola.
[2017-10-28] MEDS: GABAPENTIN 300 MG CAP PO SCH (17:16)
[2017-10-28] MEDS: CitaloPRAM (CeleXA) 10 MG TABLET PO SCH (21:57)
[2017-10-28] MEDS: GABAPENTIN 400 MG CAP PO SCH (21:58)
[2017-10-28] MEDS: LEVEMIR (INSULIN DETEMIR) 1 UNITS/0.01ML SC SCH (21:58)
[2017-10-28 22:00] VITALS: BP 140/93
[2017-10-29] VITALS: BP 140/93
[2017-10-29] MEDS: METOCLOPRAMIDE INJ 10MG/2ML VIAL (J2765) IV SCH (03:31)
[2017-10-29] MEDS: SODIUM CHLORIDE 0.9% INJ 10 ML SYR IV SCH ×2 (05:46→18:56)
[2017-10-29] MEDS: SUCRALFATE SUSP 1GM/10ML UD PO SCH ×4 (05:46→18:00)
[2017-10-29 06:00] VITALS: BP 153/89
[2017-10-29 06:28] LABS: MEAN CORPUSCULAR HEMOGLOBIN 25.7 pg (27.0-33.0); MEAN CORPUSCULAR HGB CONC 32.7 g/dl (32.0-36.5); MEAN CORPUSCULAR VOLUME 78.6 fl (80.0-96.0); PLATELET COUNT, AUTOMATED 492 10^3/uL (150-450); RED CELL DISTRIBUTION WIDTH 13.7 % (11.5-14.5); WHITE BLOOD COUNT 5.2 10^3/uL (4.0-10.0)
[2017-10-29 06:51] LABS: ANION GAP 8 MEQ/L (8-16); BLOOD UREA NITROGEN 13 MG/DL (7-18); CALCIUM LEVEL 9.1 MG/DL (8.5-10.1); CARBON DIOXIDE LEVEL 29 MEQ/L (21-32); CHLORIDE LEVEL 94 MEQ/L (98-107); CREATININE FOR GFR 1.06 MG/DL (0.55-1.02); GLOMERULAR FILTRATION RATE > 60.0 (>60); GLUCOSE, FASTING 122 MG/DL (70-105); MAGNESIUM LEVEL 1.9 MG/DL (1.8-2.4); POTASSIUM SERUM 4.1 MEQ/L (3.5-5.1); SODIUM LEVEL 131 MEQ/L (136-145)
[2017-10-29] MEDS: HumaLOG INSULIN (NovoLOG) PER UNIT SC SCH ×4 (07:30→20:00)
[2017-10-29] MEDS: LISINOPRIL 10 MG TAB PO SCH (09:00)
[2017-10-29] MEDS: TAMSULOSIN 0.4 MG CAP PO SCH (09:00)
[2017-10-29] MEDS: PANTOPRAZOLE 40MG INJ (PROTONIX) (C9113) IV SCH (09:00)
[2017-10-29] MEDS: TORSEMIDE 10 MG TABLET PO SCH (09:00)
[2017-10-29] MEDS: SENOKOT S TAB PO SCH (09:00)
[2017-10-29] MEDS: SPIRONOLACTONE 25 MG TAB PO SCH (09:00)
[2017-10-29] MEDS: MIRALAX *UNIT DOSE* 17GM PACKET PO SCH ×2 (09:00→21:00)
[2017-10-29] MEDS: ASCORBIC ACID 250 MG TAB PO SCH (09:00)
[2017-10-29] MEDS: ATORVASTATIN 20 MG TAB PO SCH (09:00)
[2017-10-29] MEDS: ENOXAPARIN 40 MG/0.4 ML SYRINGE (J1650) SC SCH (09:00)
[2017-10-29] MEDS: ONDANSETRON 4MG/2ML VIAL (J2405) IV PRN ×2 (09:41→15:25)
[2017-10-29] MEDS: ERYTHROMYCIN 250 MG TABLET PO SCH (09:42)
[2017-10-29] MEDS: PROCHLORPERAZINE 10 MG/2 ML VIAL (J0780) IV PRN ×2 (11:04→21:04)
[2017-10-29] MEDS ORDERED: BISACODYL 10 MG SUPP PR ONE (13:15)
[2017-10-29 14:00] VITALS: BP 118/81
[2017-10-29] MEDS: GABAPENTIN 300 MG CAP PO SCH (15:26)
[2017-10-29] MEDS: NORCO, ANEXSIA 5/325MG TABLET (HYDROcodone/ACETAMINOPHEN) PO PRN (15:27)
--- NOTE | 2017-10-29 18:09 | IPNPDOC ---
Date Seen The patient was seen on 10/29/17. Progress Note Patient was hospitalized since 10/18/2017. Patient was initially seen by GI ( by Dr. Baker) on 10/18/2017 for coffee ground emesis Brief summary of hospitalization and prior history: 27-year-old woman with insulin-dependent diabetes mellitus, poorly controlled with multiple diabetic complications including neuropathy, gastroparesis, peripheral vascular disease, multiple wound infections and toe amputation, HTN, depression, multiple prior admissions for nausea and vomiting, was initially admitted on 10/18/2017, for persistent nausea and vomiting with coffee-ground emesis and generalized body swelling. Patient was noted with anemia and heme positive stools, was evaluated by Dr. Baker and underwent EGD - which showed reflux esophagitis and normal stomach and duodenum. Patient is also diagnosed with anasarca likely secondary to nephrotic syndrome (etiology - diabetic nephropathy) and has been diuresed as per renal consult. Patient has been not tolerating oral diet and not having any appetite since hospitalization. So GI was re-consulted for further management. Patient reports her last episode of vomiting was yesterday morning and she is having only small amount of liquid diet because she is not having any appetite. Off note: During hospitalization patient had a major guided therapeutic paracentesis - but read is not sent for analysis. Subjective: Patient reports ateast one episode of vomiting today and Patient does report having no appetite and no desire to eat any food. Patient also reports lower abdominal pain and her last bowel movement was more than 5 days ago. Objective: patient is not in acute distress. Resting comfortable on the bed. Exam: Vitals: reviewed. Afebrile. General: Alert and oriented x 3, not in distress. Not cooperative with detailed exam. HEENT: Mild pallor, no icterus. Normal oropharynx, NO cervical lymph nodes. Chest: symmetric with bilateral clear air entry, CVS: S1, S2 heard, normal, no murmurs . Abdomen: non-distended, no surgical scars, soft, non-tender, no palpable masses , normal bowel sounds heard. Rectal exam: Patient refused. Extremities: right BKA. NATURALIST: no focal motor or sensory deficits. Moves all extremities Skin: no rash. Labs: reviewed. Hyponatremia. Improving creatinine trend. Low Albumin level. Imaging: CT scan reviewed with radiology. Prior work up including gastric emptying study reviewed -- incomplete study ( done only for 21 minutes). Impression: - Severe uncontrolled diabetes with multiple diabetes related complications. - Reflux esophagitis. - Iron deficiency anemia -- multi- factorial -- including chronic GI blood loss. - H/o recurrent nausea and vomiting -- likely suspected diabetic gastroparesis. - Anasarca -- likely from diabetic nephropathy related nephrotic syndrome. - Ascites - likely nephrogenic ( But no ascitic fluid analysis available to make definitive diagnosis). - constipation -- likely functional and poor oral intake. Recommendations: - Patient educated about the test results, possible differential diagnoses and All questions answered. - Monitor and correct electrolytes including hyponatremia - Continue pantoprazole 40 mg once daily for at least 3 months. While patient is in hospital and not able to tolerate oral medications please consider IV push daily. - Iron deficiency anemia and needs further endoscopic workup electively which includes colonoscopy and capsule endoscopy. - For suspected diabetic gastroparesis and persistent nausea and vomiting- would suggest low residue diet (advance diet consistency well as tolerated), nutrition consult, Zofran 4 mg IV 1-3 times per day, erythromycin 250 mg IV twice daily preferably before meals - for 3-5 days. - Patient is educated and encouraged to have oral intake as much as tolerated. Avoid fatty foods and complex carbohydrates. - Management of anasarca and ascites as per renal consult. - For constipation, give MiraLAX 17 g - once or twice daily if tolerating orally along with Dulcolax 10 mg oral at bedtime. If not tolerating miralax please give fleet enema once every day or every other day. - Patient does not appear to be ambulating since hospitalization -- needs Physical therapy and out of bed to chair. ALso consider psychiatry evaluation. - Discuss with patient about adequate nutrition and is unable to tolerate oral intake despite all about measures will consider evaluation for jejunostomy by surgery. - GI will follow. Plan of care discussed with patient and primary team. Patient verbalized understanding and agreed with the above, Please call for any further questions. VS, I&O, 24H, Fishbone Laboratory Data 24H LABS Laboratory Tests 2 10/29/17 06:15: Nucleated Red Blood Cells % (auto) 0.0, Anion Gap 8, Glomerular Filtration Rate > 60.0, Blood Urea Nitrogen 13, Creatinine 1.06H, Sodium Level 131L, Potassium Level 4.1, Chloride Level 94L, Carbon Dioxide Level 29, Calcium Level 9.1, Magnesium Level 1.9 12/19/17 11:55: Bedside Glucose (Misc Panel) 117H 10/29/17 17:10: Bedside Glucose (Misc Panel) 117H CBC/BMP Laboratory Tests 10/29/17 06:15 Red Blood Count 4.35, Mean Corpuscular Volume 78.6 L, Mean Corpuscular Hemoglobin 25.7 L, Mean Corpuscular Hemoglobin Concent 32.7, Red Cell Distribution Width 13.7, Calcium Level 9.1 Microbiology Microbiology 10/19/17 Urine Culture - Final, Complete SNEHAL ROMO MD Oct 29, 2017 18:08
[2017-10-29 20:00] VITALS: BP 134/88
[2017-10-29] MEDS: GABAPENTIN 400 MG CAP PO SCH (21:00)
[2017-10-29] MEDS: CitaloPRAM (CeleXA) 10 MG TABLET PO SCH (21:00)
[2017-10-29] MEDS ORDERED: LEVEMIR (INSULIN DETEMIR) 1 UNITS/0.01ML SC SCH (21:00)
[2017-10-29] MEDS: ERYTHROMYCIN LACTOBIONATE INJ 250 MG in NS 250 ML IV SCH (21:04)
[2017-10-29] MEDS: BISACODYL 10 MG SUPP PR SCH (21:05)
[2017-10-29] MEDS: IRON SUCROSE 200 MG in NS 100 ML IV SCH (22:24)
[2017-10-30] MEDS: SODIUM CHLORIDE 0.9% INJ 10 ML SYR IV SCH (05:29)
[2017-10-30] MEDS: SUCRALFATE SUSP 1GM/10ML UD PO SCH ×2 (05:29)
[2017-10-30 05:50] LABS: MEAN CORPUSCULAR HEMOGLOBIN 25.2 pg (27.0-33.0); MEAN CORPUSCULAR HGB CONC 32.6 g/dl (32.0-36.5); MEAN CORPUSCULAR VOLUME 77.3 fl (80.0-96.0); PLATELET COUNT, AUTOMATED 509 10^3/uL (150-450); RED CELL DISTRIBUTION WIDTH 14.3 % (11.5-14.5); WHITE BLOOD COUNT 5.9 10^3/uL (4.0-10.0)
[2017-10-30 06:00] VITALS: BP 134/86
[2017-10-30 06:15] LABS: ALBUMIN 2.6 GM/DL (3.2-5.2); ALKALINE PHOSPHATASE 142 U/L (45-117); ALT/SGPT 15 U/L (12-78); ANION GAP 9 MEQ/L (8-16); AST/SGOT 20 U/L (7-37); BILIRUBIN,DIRECT < 0.1 MG/DL (0.0-0.2); BILIRUBIN,TOTAL 0.2 MG/DL (0.2-1.0); BLOOD UREA NITROGEN 14 MG/DL (7-18); CALCIUM LEVEL 8.7 MG/DL (8.5-10.1); CARBON DIOXIDE LEVEL 28 MEQ/L (21-32); CHLORIDE LEVEL 93 MEQ/L (98-107); CREATININE FOR GFR 1.34 MG/DL (0.55-1.02); GLOMERULAR FILTRATION RATE 49.8 (>60); GLUCOSE, FASTING 173 MG/DL (70-105); MAGNESIUM LEVEL 1.9 MG/DL (1.8-2.4); POTASSIUM SERUM 3.5 MEQ/L (3.5-5.1); SODIUM LEVEL 130 MEQ/L (136-145); TOTAL PROTEIN 6.9 GM/DL (6.4-8.2)
[2017-10-30] MEDS ORDERED: NS 250 ML IV ONE (07:15)
[2017-10-30] MEDS ORDERED: KCL 10MEQ IN 100ML SWI (KRUN) 10 MEQ in APPROPRIATE DILUENT 1 EA IV SCH ×2 (08:00)
--- NOTE | 2017-10-30 08:05 | IPN ---
DATE: 10/29/2017 Patient seen and examined. Continues to have poor oral intake with nausea and vomiting three times overnight, not tolerating much oral, but tolerating liquid. Denies any chest pain, pressure or discomfort. Has chronic abdominal pain. Patient has a history of narcotic dependence. VITAL SIGNS: Temperature 96.5, pulse 90, respirations 18, blood pressure 153/89, pulse oximetry 97% on 2 liters nasal cannula. LABORATORY DATA: WBC 5.2, hemoglobin and hematocrit 11.2/34.2, platelets 492. Chemistry: Sodium 131, potassium 4.1, chloride 94, bicarbonate 29, BUN 13, creatinine 1.06. PHYSICAL EXAMINATION: GENERAL: Patient alert, comfortable, in no acute distress, obese. HEENT: Normocephalic, moist mucous membranes. PULMONARY: Bilateral clear. CARDIAC: Regular S1, S2. ABDOMEN: Soft, minimal tenderness to deep palpation, hypoactive bowel sounds. EXTREMITIES: Right below the knee amputation. Trace edema bilateral lower extremities. ASSESSMENT AND PLAN: This is a 27-year-old female patient with underlying medical history of hypertension, depression, dyslipidemia, diabetes mellitus with diabetic neuropathy, diabetic gastroparesis, chronic pain, recurrent urinary tract infection (UTI), methicillin-resistant Staphylococcus aureus (MRSA), osteomyelitis, with diabetic wound infection and gangrene, internal hemorrhoids, right-sided below knee amputation, presented to the hospital with facial swelling, nausea, coffee-ground emesis, and altered mental status. 1. Anasarca, secondary to nephrotic range proteinuria, likely secondary to diabetic nephropathy. Echo appreciated with normal ejection fraction (EF) and diastolic dysfunction. Nephrotic range proteinuria with hypoalbuminemia. Also evidence of previous workup at [facility]. Patient achieved adequate diuresis here and with improving kidney function. Negative fluid balance. Continue by mouth torsemide, Aldactone, lisinopril as per nephrology, statin has been added, lipid panel. Further workup as per nephrology. 2. Nausea and vomiting, secondary to gastroparesis due to underlying poorly controlled diabetes. Gastroenterology has been consulted. Zofran, Compazine. Erythromycin has been given. CT scan has been appreciated of the abdomen with splenic infarct noted. Case discussed with Dr. Cooney from general surgery. No need for surgical intervention or for anticoagulation therapy as per Dr. Cooney. Pain medication as ordered. Will try to down titrate. Patient has history of dependence on pain medication. Low residual diet as per gastroenterology (GI). Gastric emptying appreciated from previous admission. Option of gastrointestinal (GI) stimulator as well as jejunostomy tube has been discussed with cocoa bean roaster helper, Dr. Montes De Oca, who believes as of right now it is premature, will continue to monitor calorie count. IV fluids as needed. 3. Depression. Continue current medication. Psychiatry consulted. 4. Coffee-ground emesis. Hemoglobin and hematocrit stable. EGD on 10/20/2017, shows distal esophagitis. Continue proton pump inhibitor (PPI) and Carafate. 5. Iron deficiency anemia. Supplementation as ordered. 6. Elevated troponin, likely secondary to cardiac strain, anasarca, fluid overload. Patient does not report any chest pain. EKG is appreciated. Continue to monitor. 7. Diabetes mellitus with diabetic neuropathy, gastroparesis, diabetic nephropathy. Poorly compliant. Long acting insulin has been downward titrated given patient with poor oral intake and borderline blood glucose. Insulin as per protocol, adjust as needed. Followup finger sticks. 8. Depression and insomnia. Continue current medication. 9. History of right below knee amputation with chronic stump ulcer. Wound care as ordered. 10. Hypertension. Continue current regimen. 11. Dyslipidemia. Continue statin. 12. Deep venous thrombosis (DVT) prophylaxis. Lovenox subcutaneous. DISPOSITION: Poor long-term prognosis, pending clinical improvement, gastroenterology input.
[2017-10-30] MEDS: HumaLOG INSULIN (NovoLOG) PER UNIT SC SCH (08:27)
[2017-10-30] MEDS: TAMSULOSIN 0.4 MG CAP PO SCH (08:28)
[2017-10-30] MEDS: ATORVASTATIN 20 MG TAB PO SCH (08:28)
[2017-10-30] MEDS: PANTOPRAZOLE 40MG INJ (PROTONIX) (C9113) IV SCH (08:28)
[2017-10-30] MEDS: SPIRONOLACTONE 25 MG TAB PO SCH (08:28)
[2017-10-30 08:29] VITALS: BP 134/86
[2017-10-30] MEDS: SENOKOT S TAB PO SCH (08:29)
[2017-10-30] MEDS: MIRALAX *UNIT DOSE* 17GM PACKET PO SCH (08:29)
[2017-10-30] MEDS: ENOXAPARIN 40 MG/0.4 ML SYRINGE (J1650) SC SCH (08:29)
[2017-10-30] MEDS: ASCORBIC ACID 250 MG TAB PO SCH (08:29)
[2017-10-30] MEDS: ERYTHROMYCIN LACTOBIONATE INJ 250 MG in NS 250 ML IV SCH (08:29)
[2017-10-30] MEDS: LISINOPRIL 10 MG TAB PO SCH (08:29)
[2017-10-30] MEDS: BISACODYL 10 MG SUPP PR SCH (08:32)
[2017-10-30] MEDS ORDERED: TOUJ1.2I SC (09:58)
--- NOTE | 2017-10-30 16:14 | DSES ---
DATE OF ADMISSION: 10/18/2017 DATE OF DISCHARGE: 10/30/2017 The patient left against medical advice on 10/30/2017. PRIMARY CARE PROVIDER: Dr. Wesley Cheng FINAL DIAGNOSES: 1. Anasarca secondary to nephrotic range proteinuria secondary to diabetic nephropathy, poor compliance. 2. Nausea and vomiting. 3. Diabetic gastroparesis. 4. Depression. 5. Coffee ground emesis. 6. Iron deficiency anemia. 7. Troponin elevation. 8. Diabetes with diabetic neuropathy, diabetic gastroparesis, diabetic nephropathy, poorly compliant. 9. Peripheral vascular disease. 10. Depression. 11. Insomnia. 12. History of right below knee amputation. 13. Chronic stump ulcers. 14. Hypertension. 15. Dyslipidemia. 16. Left against medical advice. HISTORY OF PRESENT ILLNESS: This is a 27-year-old female patient with underlying medical history of hypertension, depression, dyslipidemia, diabetes mellitus, diabetic neuropathy, gastroparesis, chronic pain, recurrent urinary tract infection, methicillin resistant Staphylococcus aureus (MRSA), osteomyelitis, diabetic wound infection, gangrene, internal hemorrhoids, right sided below the knee amputation, who presented to [facility] with facial swelling, nausea, coffee ground emesis and altered mental status. On admission, the patient was unable to vocalize and answer questions. The patient is a very poor historian. Unable to follow commands. History was obtained from , sisters and mother. The patient's reports a recent admission to [facility] from Saturday to Saturday of the week of admission for abdominal pain and nausea, which he states that has been an ongoing issues for several months. Following her discharge on Saturday, the patient stated that she was in her normal state of health until the day before admission when she began complaining of chest pain, lightheadedness, and was noted to be diaphoretic. The patient's mother reported being contacted and was advised to send the patient to the emergency room, but the patient decided against this. She reportedly had a doctor's appointment on the day of admission. On the morning of admission, the has reported that the patient woke around 5:00 a.m. with nausea, vomiting, and coffee ground emesis. The patient also noted a left sided facial swelling that was new. However, the patient's mother reports that this was also occurring around with unknown etiology. The patient's further reports confusion upon presentation to the emergency room. The hospitalist team was contacted for admission. The patient was admitted to the hospital. Plant Technician/Control Room Operator, Dr. Donohue, was consulted. At this time, the patient is fluid overloaded. The patient was diuresed and also the patient was found to have nephrotic range proteinuria, likely secondary to diabetic nephropathy. Echo was appreciated showing diastolic dysfunction. The patient had a previous history of nephrotic range proteinuria with hypoalbuminemia on admission at [facility]. With diuresis, the patient's kidney function and fluid status has improved. The patient's home blood pressure medication of aldactone, Lisinopril and torsemide was also continued. Nephrology was consulted. Workup has been sent. Gastroenterology was also consulted for coffee ground emesis. EGD was done showing distal esophagitis. Proton pump inhibitor and Carafate were started. The patient persistently had nausea and vomiting during the hospital course. History of being diagnosed with gastroparesis with gastric emptying study. Zofran, Reglan, erythromycin were given. GI and general surgery were consulted. IV fluids were also given. For patient's iron deficiency anemia, oral supplementation was provided as well. The patient was found to have mild troponin elevation secondary to cardiac strain due to anasarca and fluid overload. EKG was appreciated showing no change. The patient's diabetes medication was adjusted. Insulin was decreased due to hypoglycemia from poor oral intake. The patient's depression medication was continued. Wound care was provided. Deep vein thrombosis (DVT) prophylaxis was provided. Unfortunately, on the morning of 10/30/2017, provider was informed by nursing staff that the patient would like to sign out against medical advice. The patient is aware that the risk of leaving the hospital prematurely includes , worsening of symptoms, worsening diabetes. The patient, at baseline, is poorly compliant. The patient subsequently left after being informed, signed herself out against medical advice prior to being evaluated by the provider. Nursing staff has instructed the patient to followup with the primary care provider as soon as possible upon discharge. The patient, at baseline, is poorly compliant. Poor overall prognosis.
== END 2017-10-30 09:37 | disposition left against medical advice (07) | DRG 468 ==
LOC: M ED 11:00 → EDBD 11:00 → M ED INP 16:36 → M PCU 17:24 → M MSPAV 10-20 10:20
PROVIDERS: ADMIT Hospitalist; ATTEND Hospitalist
PROC: 30233N1 Transfusion of Nonautologous Red Blood Cells into Peripheral Vein, Percutaneous Approach (ICD-10-PCS; 2017-10-19)
PROC: 0DJ08ZZ Inspection of Upper Intestinal Tract, Via Natural or Artificial Opening Endoscopic (ICD-10-PCS; principal; 2017-10-20 16:00)
PROC: 02HV33Z Insertion of Infusion Device into Superior Vena Cava, Percutaneous Approach (ICD-10-PCS; 2017-10-21)
DX: E10.21 Type 1 diabetes mellitus with diabetic nephropathy (principal); N17.9 Acute kidney failure, unspecified; E10.43 Type 1 diabetes mellitus with diabetic autonomic (poly)neuropathy; E87.1 Hypo-osmolality and hyponatremia; D62 Acute posthemorrhagic anemia; R80.8 Other proteinuria; R60.1 Generalized edema; D73.5 Infarction of spleen; I12.9 Hypertensive chronic kidney disease with stage 1 through stage 4 chronic kidney disease, or unspecified chronic kidney disease; E78.5 Hyperlipidemia, unspecified; Z79.899 Other long term (current) drug therapy; Z88.5 Allergy status to narcotic agent; Z88.8 Allergy status to other drugs, medicaments and biological substances; Z89.512 Acquired absence of left leg below knee; D53.9 Nutritional anemia, unspecified; F32.9 Major depressive disorder, single episode, unspecified; G47.00 Insomnia, unspecified; G89.29 Other chronic pain; I25.10 Atherosclerotic heart disease of native coronary artery without angina pectoris; E87.6 Hypokalemia; K20.9 Esophagitis, unspecified; Z79.4 Long term (current) use of insulin; N18.2 Chronic kidney disease, stage 2 (mild); R33.9 Retention of urine, unspecified; Z91.19 Patient's noncompliance with other medical treatment and regimen

== ENCOUNTER → 2017-10-24 | Outpatient (CLI) | payer OTHER ==
[~2017-10-24] MED LIST changes: -AMIT25TA PO; -AMLO10TA2 PO; -AMLO5TAB2 PO; -ATOR1TAB19 PO; -ATOR1TAB21 PO; -CELE10TA PO; -CIPR-249 PO; -CLIN300C2 PO; -CODE30TA3 PO; -DEPA1TAB3 PO; -GABA-282 PO; -GABA600T PO; -GABA800T PO; -HYDR12CA PO; -INSUH10VL SC; -INSULANT SC; +ISOVUE-370 76% 100ML VIAL (Q9967) As Ordered; -JANU100T PO; -KEFL500C17 OR; -KEFL500C17 PO; -LEVA1TAB2 PO; -LISI-538; -LISI-538 PO; -LISI-542 PO; -LISI25TA OR; -METF500T13 PO; -MULTCAP PO; -No Historical Meds; -PERCOCET PO; -PHEN1SUP6 PR; -PROAAER10 INH; -PROM12.55 PO; -PROM25SU PR; -PROT20TA11 PO; -RANI15TA PO; -REGL10TA6 OR; -REGL10TA6 PO; -SENN1TAB10 PO; -SILV1CRE60 TOP; -SITA50TAB PO; -SUCR1TA PO; -TOUJ1.2I SC; -TYLE325T5 OR; -VITA1CAP40 PO; -VITACRY3 PO; -ZINC100T4 PO; -ZOFR20TA PO; -ZOFR4TAB3 PO; -lantus SQ; -novolog SQ
== END ==
LOC: M RAD 12:00
DX: E10.21 Type 1 diabetes mellitus with diabetic nephropathy (principal); Z53.9 Procedure and treatment not carried out, unspecified reason